=== PATIENT | male | born 1970 | race Caucasian/White ===

== ENCOUNTER 2016-07-28 12:48 | Emergency (ER) | payer MEDICAID ==
[~2016-07-28] VITALS: Ht 182.9 cm; Wt 89.0 kg
[2016-07-28] MEDS ORDERED: RISP2 PO (13:12)
[2016-07-28] MEDS ORDERED: VIST50 PO (13:12)
[2016-07-28 13:33] LABS: BASOPHILS # (AUTO) 0.01 K/uL (0.00-0.20); BASOPHILS % (AUTO) 0.1 % (0.0-2.0); EOSINOPHILS # (AUTO) 0.11 K/uL (0.00-0.70); EOSINOPHILS % (AUTO) 1.32 % (1.0-6.0); HEMOGLOBIN 14.2 g/dL (13.5-17.5); LYMPHOCYTES # (AUTO) 2.2 K/uL (1.0-4.8); LYMPHOCYTES % (AUTO) 26.1 % (22.0-44.0); MEAN CORPUSCULAR HEMOGLOBIN 28.3 pg (26.0-34.0); MEAN CORPUSCULAR VOLUME 86 fL (80-100); MONOCYTES # (AUTO) 0.4 K/uL (0.1-1.0); MONOCYTES % (AUTO) 4.8 % (2.0-9.0); NEUTROPHILS # (AUTO) 5.6 K/uL (1.8-7.7); NEUTROPHILS % (AUTO) 67.7 % (40.0-70.0); PLATELET COUNT (AUTO) 588 K/uL (150-450); RED BLOOD CELL COUNT(AUTO) 5.02 MIL/uL (4.50-5.90); RED CELL DISTRIBUTION WIDTH 14.3 % (11.5-14.5); WHITE BLOOD COUNT (AUTO) 8.3 K/uL (4.5-11.0)
[2016-07-28 13:44] LABS: ANION GAP 10 mmol/L (8-16); CALCIUM, TOTAL 8.8 mg/dL (8.8-10.5); CARBON DIOXIDE 27 mmol/L (22-29); CHLORIDE 96 mmol/L (98-107); CREATININE 0.92 mg/dL (0.60-1.30); GLOMERULAR FILTR. RATE CALC > 60 mL/min (>60); POTASSIUM 4.1 mmol/L (3.5-5.1); SODIUM SERUM 133 mmol/L (136-145); UREA NITROGEN, BLOOD 19 mg/dL (7-18)
[2016-07-28 13:50] LABS: ALANINE AMINOTRANSFERASE 83 U/L (12-78); ALBUMIN 3.8 g/dL (3.4-5.0); ASPARTATE AMINOTRANSFERASE 33 U/L (15-37); BILIRUBIN,TOTAL 0.3 mg/dL (0.1-1.0); TOTAL PROTEIN, SERUM 8.2 g/dL (6.4-8.2)
[2016-07-28] MEDS ORDERED: SODIUM CHLORIDE 0.9% 1,000 ML IV ONE (14:30)
[2016-07-28] MEDS ORDERED: INSULIN REGULAR, HUMAN 100 UNITS/ML IVP ONE ×2 (14:30→14:45)
[2016-07-28 14:47] LABS: GLUCOSE,POINT OF CARE 219 MG/DL (70-110)
[2016-07-28 15:47] LABS: GLUCOSE,POINT OF CARE 85 MG/DL (70-110)
[2016-07-28 16:38] VITALS: BP 146/98
== END 2016-07-28 16:43 | disposition home or self-care (01) ==
LOC: EMS 12:49
DX: E11.65 Type 2 diabetes mellitus with hyperglycemia (principal)
CPT/HCPCS: 36415; 80053; 82948; 82962; 84484; 85025; 96361; 96374; 99285; J1815; J7030

== ENCOUNTER 2017-01-26 19:36 | Inpatient (IN) | payer MEDICAID ==
[~2017-01-26] VITALS: Ht 180.3 cm; Wt 83.0 kg
[~2017-01-26 19:36] MED LIST: RISP2 PO; VIST50 PO
[2017-01-26] MEDS ORDERED: METF500T4 PO (20:00)
[2017-01-26 20:08] LABS: GLUCOSE,POINT OF CARE 201 MG/DL (70-110)
[2017-01-26 20:34] LABS: ANION GAP 5 mmol/L (8-16); CALCIUM, TOTAL 8.6 mg/dL (8.8-10.5); CARBON DIOXIDE 29 mmol/L (22-29); CHLORIDE 102 mmol/L (98-107); CREATININE 1.03 mg/dL (0.60-1.30); GLOMERULAR FILTR. RATE CALC > 60 mL/min (>60); POTASSIUM 4.5 mmol/L (3.5-5.1); SODIUM SERUM 136 mmol/L (136-145); UREA NITROGEN, BLOOD 18 mg/dL (7-18)
[2017-01-26 20:35] LABS: BASOPHILS % (AUTO) 0.8 % (0.0-2.0); EOSINOPHILS % (AUTO) 1.7 % (1.0-6.0); HEMATOCRIT 49.1 % (41-53); LYMPHOCYTES # (AUTO) 3.3 K/uL (1.0-4.8); LYMPHOCYTES % (AUTO) 36.4 % (22.0-44.0); MEAN CORPUSCULAR HEMOGLOBIN 28.4 pg (26.0-34.0); MEAN CORPUSCULAR HGB CONC 32.6 G/dL (31.0-37.0); MEAN CORPUSCULAR VOLUME 87 fL (80-100); MONOCYTES # (AUTO) 0.6 K/uL (0.1-1.0); MONOCYTES % (AUTO) 6.5 % (2.0-9.0); NEUTROPHILS # (AUTO) 4.9 K/uL (1.8-7.7); NEUTROPHILS % (AUTO) 54.6 % (40.0-70.0); PLATELET COUNT (AUTO) 637 K/uL (150-450); RED BLOOD CELL COUNT(AUTO) 5.63 MIL/uL (4.50-5.90); RED CELL DISTRIBUTION WIDTH 14.8 % (11.5-14.5)
[2017-01-26 20:41] LABS: ALANINE AMINOTRANSFERASE 37 U/L (12-78); ALBUMIN 3.7 g/dL (3.4-5.0); ASPARTATE AMINOTRANSFERASE 27 U/L (15-37); BILIRUBIN,TOTAL 0.4 mg/dL (0.1-1.0); TOTAL PROTEIN, SERUM 7.5 g/dL (6.4-8.2)
[2017-01-26 21:06] LABS: ACETAMINOPHEN < 2 mcg/mL (10-30)
[2017-01-26 21:14] LABS: SALICYLATE < 2.8 mg/dL (2.8-20.0)
[2017-01-26 22:53] LABS: ANION GAP 11 mmol/L (8-16); CALCIUM, TOTAL 8.4 mg/dL (8.8-10.5); CARBON DIOXIDE 26 mmol/L (22-29); CHLORIDE 102 mmol/L (98-107); CREATININE 0.89 mg/dL (0.60-1.30); GLOMERULAR FILTR. RATE CALC > 60 mL/min (>60); POTASSIUM 4.1 mmol/L (3.5-5.1); SODIUM SERUM 139 mmol/L (136-145); UREA NITROGEN, BLOOD 17 mg/dL (7-18)
[2017-01-26 23:00] LABS: SALICYLATE < 2.8 mg/dL (2.8-20.0)
[2017-01-26 23:04] LABS: ACETAMINOPHEN < 2 mcg/mL (10-30)
[2017-01-27] MEDS ORDERED: HALOPERIDOL 5 MG TABLET PO PRN (00:15)
[2017-01-27] MEDS ORDERED: ZOLPIDEM TARTRATE 10 MG TABLET PO PRN (00:15)
[2017-01-27 01:03] VITALS: BP 125/86
[2017-01-27 01:24] LABS: APPEARANCE,URINE CLEAR (CLEAR); GLUCOSE, URINE (UA) >=1000 mg/dL (NEGATIVE); KETONES,URINE NEGATIVE (NEGATIVE); LEUKOCYTE ESTERASE ,URINE NEGATIVE (NEGATIVE); OCCULT BLOOD,URINE NEGATIVE (NEGATIVE); PH,URINE 5.5 (5.0-8.0); PROTEIN,URINE NEGATIVE (NEGATIVE)
[2017-01-27 01:29] LABS: ADD UA MICROSCOPIC YES
[2017-01-27 01:35] LABS: CHOL/HDL RATIO 2.5 (4.2-7.3); THYROID STIMULATING HORMONE 1.35 uIU/mL (0.36-3.74)
[2017-01-27 02:13] LABS: RBC,URINE 0-2 /HPF (0-2); WBC,URINE 0-2 /HPF (0-5)
[2017-01-27] MEDS ORDERED: INFLUENZA VIRUS VACCINE QVS 2017-18 (3YR+)/PF 60 MCG/0.5 ML SYRINGE IM ONE (02:30)
[2017-01-27 05:12] LABS: GLUCOSE,POINT OF CARE 237 MG/DL (70-110)
[2017-01-27 09:52] VITALS: BP 120/84
[2017-01-27] MEDS ORDERED: DEXTROSE 50%-WATER 25 GM/50 ML SYRINGE IVP PRN (10:30)
[2017-01-27 11:27] LABS: GLUCOSE,POINT OF CARE 200 MG/DL (70-110)
[2017-01-27] MEDS: INSULIN ASPART 100 UNITS/ML SQ PRN ×3 (11:51→20:58)
[2017-01-27] MEDS: BuPROPion HCL XL 150 MG ER TABLET PO SCH (11:56)
[2017-01-27 17:10] VITALS: BP 113/67
[2017-01-27 17:22] LABS: GLUCOSE,POINT OF CARE 222 MG/DL (70-110)
[2017-01-27] MEDS: MetFORMIN HCL 500 MG TABLET PO SCH (17:41)
[2017-01-27] MEDS ORDERED: BACITRACIN 28.4 GM OINTMENT TP PRN (19:00)
[2017-01-27] MEDS ORDERED: BENZOCAINE/MENTHOL LOZENGE [8 LOZENGES/PACKET] MM PRN (19:00)
[2017-01-27] MEDS ORDERED: CloNIDine HCL 0.1 MG TABLET PO PRN (19:00)
[2017-01-27] MEDS ORDERED: PETROLATUM,WHITE 71 GM JELLY TP PRN (19:00)
[2017-01-27] MEDS ORDERED: ACETAMINOPHEN 325 MG TABLET PO PRN (19:00)
[2017-01-27] MEDS ORDERED: IBUPROFEN 600 MG TABLET PO PRN (19:00)
[2017-01-27] MEDS ORDERED: ALBUTEROL SULFATE HFA 90 MCG/PUFF 8 GM INHALER IH PRN (19:00)
[2017-01-27] MEDS ORDERED: ONDANSETRON HCL 4 MG TABLET PO PRN (19:00)
[2017-01-27] MEDS ORDERED: LOPERAMIDE HCL 2 MG CAPSULE PO PRN (19:00)
[2017-01-27 19:48] VITALS: BP 125/73
[2017-01-27] MEDS: RisperiDONE 2 MG TABLET PO SCH (20:56)
[2017-01-28 06:27] VITALS: BP 120/70
[2017-01-28] MEDS: MetFORMIN HCL 500 MG TABLET PO SCH ×2 (07:03→16:51)
[2017-01-28] MEDS: INSULIN ASPART 100 UNITS/ML SQ PRN ×4 (07:04→21:44)
[2017-01-28 07:54] LABS: GLUCOSE COMMENT 1 Received Meds; GLUCOSE,POINT OF CARE 209 MG/DL (70-110)
[2017-01-28 07:54] LABS: GLUCOSE,POINT OF CARE 271 MG/DL (70-110)
[2017-01-28] MEDS: BuPROPion HCL XL 150 MG ER TABLET PO SCH (09:12)
[2017-01-28] MEDS: MAG HYDROX/AL HYDROX/SIMETH ES 30 ML SUSPENSION UDCUP PO PRN ×2 (09:13→17:30)
[2017-01-28 09:26] VITALS: BP 129/87
[2017-01-28 12:00] LABS: GLUCOSE,POINT OF CARE 147 MG/DL (70-110)
[2017-01-28 16:17] VITALS: BP 108/69
[2017-01-28] MEDS: RisperiDONE 2 MG TABLET PO SCH (21:38)
[2017-01-29 04:54] LABS: GLUCOSE COMMENT 1 FASTING; GLUCOSE COMMENT 2 Received Meds; GLUCOSE,POINT OF CARE 178 MG/DL (70-110)
[2017-01-29 05:00] LABS: GLUCOSE COMMENT 1 FASTING; GLUCOSE,POINT OF CARE 241 MG/DL (70-110)
[2017-01-29 05:44] VITALS: BP 117/72
[2017-01-29] MEDS: MetFORMIN HCL 500 MG TABLET PO SCH ×2 (06:46→16:52)
[2017-01-29] MEDS: INSULIN ASPART 100 UNITS/ML SQ PRN ×4 (06:50→22:19)
[2017-01-29 08:00] VITALS: BP 105/62
[2017-01-29] MEDS: BuPROPion HCL XL 150 MG ER TABLET PO SCH (10:38)
[2017-01-29] MEDS: LORazepam 2 MG TABLET PO PRN ×2 (10:38→16:52)
[2017-01-29 11:14] LABS: GLUCOSE,POINT OF CARE 247 MG/DL (70-110)
[2017-01-29] MEDS: NICOTINE 14 MG/24 HOUR PATCH TD SCH (11:45)
[2017-01-29 12:33] LABS: GLUCOSE,POINT OF CARE 211 MG/DL (70-110)
[2017-01-29] MEDS: MAGNESIUM HYDROXIDE SUSPENSION 30 ML UDCUP PO PRN (13:20)
[2017-01-29 16:39] VITALS: BP 127/86
[2017-01-29] MEDS: MAG HYDROX/AL HYDROX/SIMETH ES 30 ML SUSPENSION UDCUP PO PRN (16:52)
[2017-01-29 17:07] LABS: GLUCOSE COMMENT 1 FASTING; GLUCOSE COMMENT 2 Received Meds; GLUCOSE,POINT OF CARE 370 MG/DL (70-110)
[2017-01-29] MEDS: RisperiDONE 2 MG TABLET PO SCH (21:57)
[2017-01-29 22:17] LABS: GLUCOSE COMMENT 1 FASTING; GLUCOSE,POINT OF CARE 243 MG/DL (70-110)
[2017-01-30 06:09] LABS: GLUCOSE,POINT OF CARE 244 MG/DL (70-110)
[2017-01-30 06:44] VITALS: BP 122/84
[2017-01-30] MEDS: MetFORMIN HCL 500 MG TABLET PO SCH ×2 (07:07→17:39)
[2017-01-30] MEDS: INSULIN ASPART 100 UNITS/ML SQ PRN ×3 (07:10→17:57)
[2017-01-30 08:00] VITALS: BP 139/82
[2017-01-30] MEDS: BuPROPion HCL XL 150 MG ER TABLET PO SCH (08:55)
[2017-01-30] MEDS: LORazepam 2 MG TABLET PO PRN (08:56)
[2017-01-30] MEDS: NICOTINE 14 MG/24 HOUR PATCH TD SCH (08:58)
[2017-01-30] MEDS: MAGNESIUM HYDROXIDE SUSPENSION 30 ML UDCUP PO PRN ×2 (09:00→14:31)
[2017-01-30 10:52] LABS: GLUCOSE,POINT OF CARE 278 MG/DL (70-110)
[2017-01-30] MEDS ORDERED: PALIPERIDONE PALMITATE 156 MG/ML SYRINGE IM SCH ×2 (11:30→12:00)
[2017-01-30 17:42] LABS: GLUCOSE,POINT OF CARE 336 MG/DL (70-110)
[2017-01-30] MEDS: RisperiDONE 2 MG TABLET PO SCH (20:50)
[2017-01-30 20:57] LABS: GLUCOSE,POINT OF CARE 206 MG/DL (70-110)
[2017-01-30 21:18] VITALS: BP 132/86
[2017-01-31 05:48] LABS: GLUCOSE COMMENT 1 FASTING; GLUCOSE COMMENT 2 Received Meds; GLUCOSE,POINT OF CARE 219 MG/DL (70-110)
[2017-01-31 06:02] VITALS: BP 134/88
[2017-01-31] MEDS: MetFORMIN HCL 500 MG TABLET PO SCH ×2 (06:48→17:01)
[2017-01-31] MEDS: INSULIN ASPART 100 UNITS/ML SQ PRN ×3 (06:59→17:24)
[2017-01-31 08:00] VITALS: BP 161/87
[2017-01-31] MEDS: NICOTINE 14 MG/24 HOUR PATCH TD SCH (09:33)
[2017-01-31] MEDS: BuPROPion HCL XL 150 MG ER TABLET PO SCH (09:33)
[2017-01-31] MEDS: MAGNESIUM HYDROXIDE SUSPENSION 30 ML UDCUP PO PRN (09:38)
[2017-01-31 10:38] VITALS: BP 111/72
[2017-01-31 11:37] LABS: GLUCOSE,POINT OF CARE 308 MG/DL (70-110)
[2017-01-31] MEDS: MAGNESIUM CITRATE 300 ML ORAL SOLUTION PO PRN (13:19)
[2017-01-31 16:00] VITALS: BP 111/57
[2017-01-31 16:07] LABS: GLUCOSE,POINT OF CARE 236 MG/DL (70-110)
[2017-01-31 21:32] LABS: GLUCOSE,POINT OF CARE 253 MG/DL (70-110)
[2017-01-31] MEDS: RisperiDONE 2 MG TABLET PO SCH (21:39)
[2017-02-01 04:22] VITALS: BP 132/90
[2017-02-01 05:37] LABS: GLUCOSE COMMENT 1 Received Meds; GLUCOSE,POINT OF CARE 224 MG/DL (70-110)
[2017-02-01] MEDS: MetFORMIN HCL 500 MG TABLET PO SCH ×2 (06:50→16:09)
[2017-02-01] MEDS: INSULIN ASPART 100 UNITS/ML SQ PRN ×4 (07:04→20:51)
[2017-02-01 09:00] VITALS: BP 118/75
[2017-02-01] MEDS: BuPROPion HCL XL 150 MG ER TABLET PO SCH (09:03)
[2017-02-01] MEDS: NICOTINE 14 MG/24 HOUR PATCH TD SCH (09:04)
[2017-02-01] MEDS: MAGNESIUM CITRATE 300 ML ORAL SOLUTION PO PRN (09:08)
[2017-02-01 11:48] LABS: GLUCOSE,POINT OF CARE 249 MG/DL (70-110)
[2017-02-01 16:37] LABS: GLUCOSE,POINT OF CARE 318 MG/DL (70-110)
[2017-02-01 16:53] VITALS: BP 105/70
[2017-02-01 18:21] VITALS: BP 118/96
[2017-02-01] MEDS: LORazepam 2 MG TABLET PO PRN (18:24)
[2017-02-01 20:17] LABS: GLUCOSE,POINT OF CARE 321 MG/DL (70-110)
[2017-02-01] MEDS: RisperiDONE 2 MG TABLET PO SCH (20:40)
[2017-02-02 05:47] LABS: GLUCOSE,POINT OF CARE 182 MG/DL (70-110)
[2017-02-02 05:49] VITALS: BP 101/64
[2017-02-02 06:39] LABS: BASOPHILS % (AUTO) 0.7 % (0.0-2.0); EOSINOPHILS % (AUTO) 0.8 % (1.0-6.0); HEMATOCRIT 48.5 % (41-53); HEMOGLOBIN 16.2 g/dL (13.5-17.5); LYMPHOCYTES # (AUTO) 2.1 K/uL (1.0-4.8); LYMPHOCYTES % (AUTO) 32.3 % (22.0-44.0); MEAN CORPUSCULAR HEMOGLOBIN 29.1 pg (26.0-34.0); MEAN CORPUSCULAR HGB CONC 33.5 G/dL (31.0-37.0); MEAN CORPUSCULAR VOLUME 87 fL (80-100); MONOCYTES # (AUTO) 0.5 K/uL (0.1-1.0); MONOCYTES % (AUTO) 7.7 % (2.0-9.0); NEUTROPHILS # (AUTO) 3.8 K/uL (1.8-7.7); NEUTROPHILS % (AUTO) 58.5 % (40.0-70.0); PLATELET COUNT (AUTO) 498 K/uL (150-450); RED BLOOD CELL COUNT(AUTO) 5.59 MIL/uL (4.50-5.90); RED CELL DISTRIBUTION WIDTH 14.6 % (11.5-14.5); WHITE BLOOD COUNT (AUTO) 6.4 K/uL (4.5-11.0)
[2017-02-02] MEDS: MetFORMIN HCL 500 MG TABLET PO SCH ×2 (06:54→17:23)
[2017-02-02] MEDS: INSULIN ASPART 100 UNITS/ML SQ PRN ×4 (07:07→22:54)
[2017-02-02 08:00] VITALS: BP 137/87
[2017-02-02] MEDS: NICOTINE 14 MG/24 HOUR PATCH TD SCH (09:53)
[2017-02-02] MEDS: BuPROPion HCL XL 150 MG ER TABLET PO SCH (09:53)
[2017-02-02 11:17] LABS: GLUCOSE,POINT OF CARE 265 MG/DL (70-110)
[2017-02-02] MEDS: MAG HYDROX/AL HYDROX/SIMETH ES 30 ML SUSPENSION UDCUP PO PRN (13:34)
[2017-02-02 17:27] LABS: GLUCOSE COMMENT 1 FASTING; GLUCOSE COMMENT 2 Received Meds; GLUCOSE,POINT OF CARE 298 MG/DL (70-110)
[2017-02-02] MEDS: RisperiDONE 2 MG TABLET PO SCH (20:24)
[2017-02-02] MEDS: OMEPRAZOLE 20 MG CAPSULE PO SCH (20:24)
[2017-02-02 22:18] VITALS: BP 115/78
[2017-02-02 23:02] LABS: GLUCOSE COMMENT 1 FASTING; GLUCOSE,POINT OF CARE 169 MG/DL (70-110)
[2017-02-03 05:25] VITALS: BP 131/69
[2017-02-03 05:37] LABS: GLUCOSE COMMENT 1 Received Meds; GLUCOSE,POINT OF CARE 229 MG/DL (70-110)
[2017-02-03] MEDS: MetFORMIN HCL 500 MG TABLET PO SCH (06:56)
[2017-02-03] MEDS: INSULIN ASPART 100 UNITS/ML SQ PRN ×2 (07:00→11:38)
[2017-02-03 08:00] VITALS: BP 140/90
[2017-02-03] MEDS: BuPROPion HCL XL 150 MG ER TABLET PO SCH (10:36)
[2017-02-03] MEDS: OMEPRAZOLE 20 MG CAPSULE PO SCH (10:36)
[2017-02-03] MEDS: NICOTINE 14 MG/24 HOUR PATCH TD SCH (10:38)
[2017-02-03] MEDS ORDERED: OMEP20 PO (10:54)
[2017-02-03] MEDS ORDERED: BUPR-93 PO (10:54)
[2017-02-03 11:27] LABS: GLUCOSE,POINT OF CARE 226 MG/DL (70-110)
[2017-02-04 10:23] LABS: HIV-1 RNA PCR <20 copies/mL
== END 2017-02-03 13:30 | disposition home or self-care (01) | DRG 750 ==
LOC: EMS 19:41 → AHU 01-27 00:57 → 3EI 01-27 19:24
DX: F25.1 Schizoaffective disorder, depressive type (principal); E11.65 Type 2 diabetes mellitus with hyperglycemia; R45.851 Suicidal ideations; D69.6 Thrombocytopenia, unspecified; F32.9 Major depressive disorder, single episode, unspecified; E83.51 Hypocalcemia; F15.10 Other stimulant abuse, uncomplicated; G47.00 Insomnia, unspecified; K59.00 Constipation, unspecified; T39.012A Poisoning by aspirin, intentional self-harm, initial encounter; D47.3 Essential (hemorrhagic) thrombocythemia; Z91.5 Personal history of self-harm; Z79.84 Long term (current) use of oral hypoglycemic drugs
CPT/HCPCS: 82306; 82962; 83036; 84443; 85049; 87536; 90471; 99285; G0480; G0481

== ENCOUNTER 2017-08-07 19:41 | Inpatient (IN) | payer MEDICAID ==
[~2017-08-07] VITALS: Ht 180.3 cm; Wt 84.4 kg
[~2017-08-07 19:41] MED LIST changes: +DSS100 PO; +GLIP10 PO; +INSU100V12 SQ; +LISI-660 PO; +METF500T4 PO; +OMEP20 PO; -VIST50 PO; +VITAD1000 PO
[2017-08-07 19:57] LABS: GLUCOSE,POINT OF CARE 137 MG/DL (70-110)
[2017-08-07] MEDS ORDERED: ACTIVATED CHARCOAL 50 GM/240 ML SUSPENSION PO ONE (20:15)
[2017-08-07 20:44] LABS: BASOPHILS % (AUTO) 1.2 % (0.0-2.0); EOSINOPHILS % (AUTO) 0.9 % (1.0-6.0); HEMATOCRIT 42.3 % (41-53); HEMOGLOBIN 14.3 g/dL (13.5-17.5); LYMPHOCYTES # (AUTO) 2.9 K/uL (1.0-4.8); LYMPHOCYTES % (AUTO) 38.5 % (22.0-44.0); MEAN CORPUSCULAR HEMOGLOBIN 29.7 pg (26.0-34.0); MEAN CORPUSCULAR HGB CONC 33.8 G/dL (31.0-37.0); MEAN CORPUSCULAR VOLUME 88 fL (80-100); MONOCYTES # (AUTO) 0.5 K/uL (0.1-1.0); MONOCYTES % (AUTO) 6.5 % (2.0-9.0); NEUTROPHILS % (AUTO) 52.9 % (40.0-70.0); PLATELET COUNT (AUTO) 711 K/uL (150-450); RED BLOOD CELL COUNT(AUTO) 4.81 MIL/uL (4.50-5.90); RED CELL DISTRIBUTION WIDTH 14.1 % (11.5-14.5)
[2017-08-07 21:05] LABS: SALICYLATE < 2.8 mg/dL (2.8-20.0)
[2017-08-07 21:22] LABS: ANION GAP 12 mmol/L (8-16); CALCIUM, TOTAL 9.1 mg/dL (8.8-10.5); CARBON DIOXIDE 25 mmol/L (22-29); CHLORIDE 102 mmol/L (98-107); CREATININE 0.84 mg/dL (0.60-1.30); GLOMERULAR FILTR. RATE CALC > 60 mL/min (>60); GLUCOSE,RANDOM 140 mg/dL (70-110); POTASSIUM 3.4 mmol/L (3.5-5.1); SODIUM SERUM 139 mmol/L (136-145); UREA NITROGEN, BLOOD 11 mg/dL (7-18)
[2017-08-07 21:27] LABS: ALANINE AMINOTRANSFERASE 43 U/L (12-78); ALBUMIN 3.7 g/dL (3.4-5.0); ALKALINE PHOSPHATASE 191 U/L (46-116); ASPARTATE AMINOTRANSFERASE 49 U/L (15-37); BILIRUBIN,TOTAL 0.3 mg/dL (0.1-1.0); TOTAL PROTEIN, SERUM 8.1 g/dL (6.4-8.2)
[2017-08-07 21:39] LABS: ACETAMINOPHEN < 2 mcg/mL (10-30)
[2017-08-07] MEDS ORDERED: LORazepam 2 MG TABLET PO PRN (22:15)
[2017-08-07] MEDS ORDERED: ZOLPIDEM TARTRATE 10 MG TABLET PO PRN (22:15)
[2017-08-07] MEDS ORDERED: HALOPERIDOL 5 MG TABLET PO PRN (22:15)
[2017-08-07 23:37] LABS: APPEARANCE,URINE CLEAR (CLEAR); BILIRUBIN,URINE NEGATIVE (NEGATIVE); GLUCOSE, URINE (UA) >=1000 mg/dL (NEGATIVE); KETONES,URINE NEGATIVE (NEGATIVE); LEUKOCYTE ESTERASE ,URINE NEGATIVE (NEGATIVE); NITRATE,URINE NEGATIVE (NEGATIVE); OCCULT BLOOD,URINE NEGATIVE (NEGATIVE); PH,URINE 5.5 (5.0-8.0); PROTEIN,URINE NEGATIVE (NEGATIVE)
[2017-08-07 23:42] LABS: AMPHET/METH SCREEN,URINE POSITIVE (NEGATIVE); BARBITURATE SCREEN, URINE NEGATIVE (NEGATIVE); BENZODIAZEPINES SCREEN,URINE NEGATIVE (NEGATIVE); CANNABINOID SCREEN,URINE NEGATIVE (NEGATIVE); COCAINE SCREEN,URINE NEGATIVE (NEGATIVE); METHADONE SCREEN, URINE NEGATIVE (NEGATIVE); OPIATE SCREEN,URINE NEGATIVE (NEGATIVE)
[2017-08-07 23:44] LABS: PHENCYCLIDINE SCREEN,URINE NEGATIVE (NEGATIVE)
[2017-08-07 23:51] LABS: BACTERIA,URINE None Seen /HPF (None Seen); RBC,URINE None Seen /HPF (0-2); WBC,URINE None Seen /HPF (0-5)
[2017-08-08 03:36] VITALS: BP 114/73
[2017-08-08] MEDS ORDERED: PNEUMOCOCCAL VACCINE POLYVALENT 0.5 ML VIAL [PPSV23] IM ONE (05:30)
[2017-08-08 09:01] VITALS: BP 138/90
[2017-08-08] MEDS ORDERED: ALBUTEROL SULFATE HFA 90 MCG/PUFF 8 GM INHALER IH PRN (09:15)
[2017-08-08] MEDS ORDERED: CloNIDine HCL 0.1 MG TABLET PO PRN (09:15)
[2017-08-08] MEDS ORDERED: ONDANSETRON HCL 4 MG TABLET PO PRN (09:15)
[2017-08-08] MEDS ORDERED: PETROLATUM,WHITE 71 GM JELLY TP PRN (09:15)
[2017-08-08] MEDS ORDERED: IBUPROFEN 600 MG TABLET PO PRN (09:15)
[2017-08-08] MEDS ORDERED: POTASSIUM CHLORIDE 20 MEQ ER TABLET PO ONE (09:15)
[2017-08-08] MEDS ORDERED: BACITRACIN 28.4 GM OINTMENT TP PRN (09:15)
[2017-08-08] MEDS ORDERED: MAG HYDROX/AL HYDROX/SIMETH ES 30 ML SUSPENSION UDCUP PO PRN (09:15)
[2017-08-08] MEDS ORDERED: ACETAMINOPHEN 325 MG TABLET PO PRN (09:15)
[2017-08-08] MEDS ORDERED: MAGNESIUM HYDROXIDE SUSPENSION 30 ML UDCUP PO PRN (09:15)
[2017-08-08] MEDS ORDERED: DEXTROSE 50%-WATER 25 GM/50 ML SYRINGE IVP PRN (09:15)
[2017-08-08] MEDS ORDERED: LOPERAMIDE HCL 2 MG CAPSULE PO PRN (09:15)
[2017-08-08] MEDS ORDERED: BENZOCAINE/MENTHOL LOZENGE MM PRN (09:15)
[2017-08-08] MEDS: ARIPiprazole 15 MG TABLET PO SCH (09:56)
[2017-08-08] MEDS: LISINOPRIL 5 MG TABLET PO SCH (09:57)
[2017-08-08 11:38] LABS: GLUCOMETER DEV NAME(LOC) 3EI B; GLUCOSE,POINT OF CARE 233 MG/DL (70-110)
[2017-08-08] MEDS: INSULIN LISPRO 100 UNITS/ML SQ PRN ×3 (11:38→21:32)
[2017-08-08] MEDS: GlipiZIDE 10 MG TABLET PO SCH (16:54)
[2017-08-08] MEDS: MetFORMIN HCL 500 MG TABLET PO SCH (16:54)
[2017-08-08 17:00] VITALS: BP 126/82
[2017-08-08 17:03] LABS: GLUCOMETER DEV NAME(LOC) 3EI B; GLUCOSE,POINT OF CARE 148 MG/DL (70-110)
[2017-08-08 20:38] LABS: GLUCOMETER DEV NAME(LOC) 3EI B; GLUCOSE,POINT OF CARE 67 MG/DL (70-110)
[2017-08-08] MEDS ORDERED: INSULIN GLARGINE,HUM.REC.ANLOG 100 UNITS/ML SQ SCH (21:00)
[2017-08-08] MEDS ORDERED: RisperiDONE 2 MG TABLET PO SCH (21:00)
[2017-08-08 21:33] LABS: GLUCOMETER DEV NAME(LOC) 3EI B; GLUCOSE,POINT OF CARE 151 MG/DL (70-110)
[2017-08-09 05:23] LABS: GLUCOMETER DEV NAME(LOC) 3EI B; GLUCOSE,POINT OF CARE 158 MG/DL (70-110)
[2017-08-09] MEDS: GlipiZIDE 10 MG TABLET PO SCH (06:37)
[2017-08-09] MEDS: MetFORMIN HCL 500 MG TABLET PO SCH (06:37)
[2017-08-09] MEDS: INSULIN LISPRO 100 UNITS/ML SQ PRN ×2 (06:42→11:35)
[2017-08-09 08:00] VITALS: BP 123/74
[2017-08-09] MEDS ORDERED: CHOLECALCIFEROL (VIT D3) 1,000 UNITS TABLET PO SCH (09:00)
[2017-08-09] MEDS ORDERED: OMEPRAZOLE 20 MG CAPSULE PO SCH (09:00)
[2017-08-09] MEDS ORDERED: DOCUSATE SODIUM 100 MG CAPSULE PO SCH (09:00)
[2017-08-09] MEDS: LISINOPRIL 5 MG TABLET PO SCH (09:43)
[2017-08-09] MEDS: ARIPiprazole 15 MG TABLET PO SCH (09:43)
[2017-08-09 11:22] LABS: GLUCOMETER DEV NAME(LOC) 3EI B; GLUCOSE,POINT OF CARE 180 MG/DL (70-110)
[2017-08-09] MEDS ORDERED: ARIP15TA2 PO (15:44)
[2017-08-09] MEDS ORDERED: INSLAN SQ (15:45)
== END 2017-08-09 16:15 | disposition home or self-care (01) | DRG 754 ==
LOC: EMS 19:42 → 3EI 22:30
PROVIDERS: ADMIT Psychiatry & Neurology Psychiatry; ATTEND Psychiatry & Neurology Psychiatry
DX: F32.9 Major depressive disorder, single episode, unspecified (principal); E11.65 Type 2 diabetes mellitus with hyperglycemia; I10 Essential (primary) hypertension; F25.9 Schizoaffective disorder, unspecified; E55.9 Vitamin D deficiency, unspecified; F15.10 Other stimulant abuse, uncomplicated; F17.200 Nicotine dependence, unspecified, uncomplicated; F41.9 Anxiety disorder, unspecified; F41.8 Other specified anxiety disorders; Y90.3 Blood alcohol level of 60-79 mg/100 ml; T39.012A Poisoning by aspirin, intentional self-harm, initial encounter; F10.10 Alcohol abuse, uncomplicated; E87.6 Hypokalemia; G47.00 Insomnia, unspecified; J44.9 Chronic obstructive pulmonary disease, unspecified; Z59.0 Homelessness; Z91.5 Personal history of self-harm; Y92.89 Other specified places as the place of occurrence of the external cause
CPT/HCPCS: 82962; 84132; 93005; G0480; G0481; J1815

== ENCOUNTER 2018-04-22 17:56 | Inpatient (IN) | payer MEDICAID ==
[~2018-04-22] VITALS: Ht 180.3 cm; Wt 92.5 kg
[~2018-04-22 17:56] MED LIST changes: -DSS100 PO; +INSLAN SQ; -INSU100V12 SQ; +METF-960 PO; -METF500T4 PO
[2018-04-22 18:15] LABS: GLUCOSE,POINT OF CARE 313 MG/DL (70-110)
[2018-04-22 19:01] LABS: BASOPHILS % (AUTO) 1.2 % (0.0-2.0); EOSINOPHILS % (AUTO) 0.7 % (1.0-6.0); HEMATOCRIT 47.8 % (41-53); HEMOGLOBIN 16.1 g/dL (13.5-17.5); LYMPHOCYTES # (AUTO) 2.9 K/uL (1.0-4.8); LYMPHOCYTES % (AUTO) 30.3 % (22.0-44.0); MEAN CORPUSCULAR HEMOGLOBIN 29.2 pg (26.0-34.0); MEAN CORPUSCULAR HGB CONC 33.6 G/dL (31.0-37.0); MEAN CORPUSCULAR VOLUME 87 fL (80-100); MONOCYTES # (AUTO) 0.5 K/uL (0.1-1.0); MONOCYTES % (AUTO) 5.4 % (2.0-9.0); NEUTROPHILS # (AUTO) 5.9 K/uL (1.8-7.7); NEUTROPHILS % (AUTO) 62.4 % (40.0-70.0); RED BLOOD CELL COUNT(AUTO) 5.51 MIL/uL (4.50-5.90); RED CELL DISTRIBUTION WIDTH 14.6 % (11.5-14.5)
[2018-04-22 19:13] LABS: PLATELET COUNT (AUTO) 856 K/uL (150-450)
[2018-04-22 19:15] LABS: ANION GAP 15 mmol/L (8-16); CALCIUM, TOTAL 9.2 mg/dL (8.8-10.5); CARBON DIOXIDE 21 mmol/L (22-29); CHLORIDE 100 mmol/L (98-107); CREATININE 0.99 mg/dL (0.60-1.30); GLOMERULAR FILTR. RATE CALC > 60 mL/min (>60); GLUCOSE,RANDOM 304 mg/dL (70-110); POTASSIUM 3.9 mmol/L (3.5-5.1); SODIUM SERUM 136 mmol/L (136-145); UREA NITROGEN, BLOOD 16 mg/dL (7-18)
[2018-04-22 19:21] LABS: ALANINE AMINOTRANSFERASE 42 U/L (12-78); ALBUMIN 3.9 g/dL (3.4-5.0); ALKALINE PHOSPHATASE 158 U/L (46-116); ASPARTATE AMINOTRANSFERASE 42 U/L (15-37); BILIRUBIN,TOTAL 0.2 mg/dL (0.1-1.0); TOTAL PROTEIN, SERUM 8.2 g/dL (6.4-8.2)
[2018-04-22] MEDS ORDERED: LORazepam 2 MG/ML VIAL IM ONE (20:00)
[2018-04-22] MEDS ORDERED: DiphenhydrAMINE HCL 50 MG/ML VIAL IM ONE (20:00)
[2018-04-22] MEDS ORDERED: INSULIN REGULAR, HUMAN 100 UNITS/ML SQ ONE (20:00)
[2018-04-22 20:05] LABS: ACETONE,BLOOD NEGATIVE (NEGATIVE)
[2018-04-22 21:44] LABS: GLUCOSE,POINT OF CARE 272 MG/DL (70-110)
[2018-04-22] MEDS ORDERED: HALOPERIDOL 5 MG TABLET PO PRN (22:30)
[2018-04-23 00:14] VITALS: BP 160/95
[2018-04-23 05:34] LABS: GLUCOMETER DEV NAME(LOC) 3EX.; GLUCOSE,POINT OF CARE 283 MG/DL (70-110)
[2018-04-23] MEDS ORDERED: ACETAMINOPHEN 325 MG TABLET PO PRN (06:00)
[2018-04-23] MEDS ORDERED: ALBUTEROL SULFATE HFA 90 MCG/PUFF 8 GM INHALER IH PRN (06:00)
[2018-04-23] MEDS ORDERED: GuaiFENesin/D-METHORPHAN [SUGAR-FREE] 200-20MG/10 ML SYRUP UDCUP PO PRN (06:00)
[2018-04-23] MEDS ORDERED: PETROLATUM,WHITE 71 GM JELLY TP PRN (06:00)
[2018-04-23] MEDS ORDERED: DOCUSATE SODIUM 100 MG CAPSULE PO PRN (06:00)
[2018-04-23] MEDS ORDERED: LOPERAMIDE HCL 2 MG CAPSULE PO PRN (06:00)
[2018-04-23] MEDS ORDERED: ONDANSETRON HCL 4 MG TABLET PO PRN (06:00)
[2018-04-23] MEDS ORDERED: CloNIDine HCL 0.1 MG TABLET PO PRN (06:00)
[2018-04-23] MEDS ORDERED: MAG HYDROX/AL HYDROX/SIMETH ES 30 ML SUSPENSION UDCUP PO PRN (06:00)
[2018-04-23] MEDS ORDERED: IBUPROFEN 400 MG TABLET PO PRN (06:00)
[2018-04-23] MEDS ORDERED: MAGNESIUM HYDROXIDE SUSPENSION 30 ML UDCUP PO PRN (06:00)
[2018-04-23] MEDS: MetFORMIN HCL 500 MG TABLET PO SCH ×2 (06:55→16:50)
[2018-04-23] MEDS: GlipiZIDE 10 MG TABLET PO SCH ×2 (07:19→16:50)
[2018-04-23 07:24] LABS: CHOL/HDL RATIO 3.4 (4.2-7.3)
[2018-04-23] MEDS: LISINOPRIL 10 MG TABLET PO SCH (09:00)
[2018-04-23] MEDS: OMEPRAZOLE 20 MG CAPSULE PO SCH (09:00)
[2018-04-23] MEDS: CHOLECALCIFEROL (VIT D3) 1,000 UNITS TABLET PO SCH (09:00)
[2018-04-23 12:15] VITALS: BP 113/73
[2018-04-23 12:18] VITALS: BP 113/73
[2018-04-23] MEDS ORDERED: DEXTROSE 50%-WATER 25 GM/50 ML SYRINGE IVP PRN (13:15)
[2018-04-23 16:19] LABS: GLUCOMETER DEV NAME(LOC) 3EX.; GLUCOSE,POINT OF CARE 206 MG/DL (70-110)
[2018-04-23] MEDS: INSULIN LISPRO 100 UNITS/ML SQ PRN ×2 (17:39→21:57)
[2018-04-23 18:17] VITALS: BP 136/90
[2018-04-23] MEDS: INSULIN GLARGINE,HUM.REC.ANLOG 100 UNITS/ML SQ SCH (21:55)
[2018-04-23] MEDS: LORazepam 2 MG TABLET PO PRN (21:56)
[2018-04-23] MEDS: RisperiDONE 2 MG TABLET PO SCH (21:56)
[2018-04-23 22:15] LABS: GLUCOMETER DEV NAME(LOC) 3EX.; GLUCOSE,POINT OF CARE 249 MG/DL (70-110)
[2018-04-24 05:59] LABS: GLUCOMETER DEV NAME(LOC) 3EX.; GLUCOSE,POINT OF CARE 168 MG/DL (70-110)
[2018-04-24] MEDS: GlipiZIDE 10 MG TABLET PO SCH ×2 (06:34→16:46)
[2018-04-24] MEDS: MetFORMIN HCL 500 MG TABLET PO SCH ×2 (06:34→16:46)
[2018-04-24] MEDS: INSULIN LISPRO 100 UNITS/ML SQ PRN ×4 (06:35→21:15)
[2018-04-24 07:00] LABS: EOSINOPHILS % (AUTO) 0.5 % (1.0-6.0); HEMATOCRIT 45.9 % (41-53); HEMOGLOBIN 15.5 g/dL (13.5-17.5); LYMPHOCYTES # (AUTO) 2.2 K/uL (1.0-4.8); MEAN CORPUSCULAR HEMOGLOBIN 29.6 pg (26.0-34.0); MEAN CORPUSCULAR HGB CONC 33.8 G/dL (31.0-37.0); MEAN CORPUSCULAR VOLUME 87 fL (80-100); MONOCYTES # (AUTO) 0.3 K/uL (0.1-1.0); MONOCYTES % (AUTO) 4.6 % (2.0-9.0); NEUTROPHILS # (AUTO) 4.5 K/uL (1.8-7.7); NEUTROPHILS % (AUTO) 62.9 % (40.0-70.0); PLATELET COUNT (AUTO) 654 K/uL (150-450); RED BLOOD CELL COUNT(AUTO) 5.25 MIL/uL (4.50-5.90); RED CELL DISTRIBUTION WIDTH 14.5 % (11.5-14.5)
[2018-04-24] MEDS: OMEPRAZOLE 20 MG CAPSULE PO SCH (08:57)
[2018-04-24] MEDS: RisperiDONE 2 MG TABLET PO SCH ×2 (08:57→21:11)
[2018-04-24] MEDS: CHOLECALCIFEROL (VIT D3) 1,000 UNITS TABLET PO SCH (08:58)
[2018-04-24] MEDS: LISINOPRIL 10 MG TABLET PO SCH (08:58)
[2018-04-24] MEDS: LORazepam 2 MG TABLET PO PRN ×2 (08:59→16:46)
[2018-04-24 10:33] VITALS: BP 119/81
[2018-04-24 11:19] LABS: GLUCOMETER DEV NAME(LOC) 3EX.; GLUCOSE,POINT OF CARE 215 MG/DL (70-110)
[2018-04-24 17:44] VITALS: BP 127/92
[2018-04-24 17:44] LABS: GLUCOMETER DEV NAME(LOC) 3EX.; GLUCOSE,POINT OF CARE 222 MG/DL (70-110)
[2018-04-24 20:49] LABS: GLUCOMETER DEV NAME(LOC) 3EX.; GLUCOSE,POINT OF CARE 204 MG/DL (70-110)
[2018-04-24] MEDS: INSULIN GLARGINE,HUM.REC.ANLOG 100 UNITS/ML SQ SCH (21:14)
[2018-04-25 06:15] LABS: GLUCOMETER DEV NAME(LOC) 3EX.; GLUCOSE,POINT OF CARE 169 MG/DL (70-110)
[2018-04-25] MEDS: GlipiZIDE 10 MG TABLET PO SCH ×2 (06:31→16:10)
[2018-04-25] MEDS: MetFORMIN HCL 500 MG TABLET PO SCH ×2 (06:31→16:10)
[2018-04-25] MEDS: INSULIN LISPRO 100 UNITS/ML SQ PRN ×4 (06:32→21:22)
[2018-04-25 08:57] VITALS: BP 127/76
[2018-04-25] MEDS: OMEPRAZOLE 20 MG CAPSULE PO SCH (09:26)
[2018-04-25] MEDS: CHOLECALCIFEROL (VIT D3) 1,000 UNITS TABLET PO SCH (09:26)
[2018-04-25] MEDS: RisperiDONE 2 MG TABLET PO SCH ×2 (09:26→21:06)
[2018-04-25] MEDS: LISINOPRIL 10 MG TABLET PO SCH (09:26)
[2018-04-25 12:35] LABS: GLUCOMETER DEV NAME(LOC) 3EX.; GLUCOSE,POINT OF CARE 164 MG/DL (70-110)
[2018-04-25] MEDS: LORazepam 2 MG TABLET PO PRN (16:12)
[2018-04-25 19:13] VITALS: BP 130/80
[2018-04-25] MEDS: ZOLPIDEM TARTRATE 10 MG TABLET PO PRN (21:06)
[2018-04-25] MEDS: INSULIN GLARGINE,HUM.REC.ANLOG 100 UNITS/ML SQ SCH (21:21)
[2018-04-26] MEDS: MetFORMIN HCL 500 MG TABLET PO SCH ×2 (06:56→16:26)
[2018-04-26] MEDS: GlipiZIDE 10 MG TABLET PO SCH ×2 (06:56→16:26)
[2018-04-26] MEDS: INSULIN LISPRO 100 UNITS/ML SQ PRN ×3 (07:01→21:17)
[2018-04-26] MEDS: LISINOPRIL 10 MG TABLET PO SCH (08:57)
[2018-04-26] MEDS: RisperiDONE 2 MG TABLET PO SCH ×2 (08:57→20:55)
[2018-04-26] MEDS: CHOLECALCIFEROL (VIT D3) 1,000 UNITS TABLET PO SCH (08:57)
[2018-04-26] MEDS: OMEPRAZOLE 20 MG CAPSULE PO SCH (08:57)
[2018-04-26 09:33] VITALS: BP 128/86
[2018-04-26 13:58] LABS: GLUCOMETER DEV NAME(LOC) 3EX.; GLUCOSE,POINT OF CARE 176 MG/DL (70-110)
[2018-04-26 14:00] LABS: GLUCOMETER DEV NAME(LOC) 3EX.; GLUCOSE,POINT OF CARE 161 MG/DL (70-110)
[2018-04-26 14:00] LABS: GLUCOMETER DEV NAME(LOC) 3EX.; GLUCOSE,POINT OF CARE 205 MG/DL (70-110)
[2018-04-26 14:01] LABS: GLUCOMETER DEV NAME(LOC) 3EX.; GLUCOSE,POINT OF CARE 129 MG/DL (70-110)
[2018-04-26] MEDS: LORazepam 2 MG TABLET PO PRN (14:22)
[2018-04-26 16:35] VITALS: BP 108/68
[2018-04-26] MEDS: INSULIN GLARGINE,HUM.REC.ANLOG 100 UNITS/ML SQ SCH (21:16)
[2018-04-27] MEDS: MetFORMIN HCL 500 MG TABLET PO SCH ×2 (06:54→16:31)
[2018-04-27] MEDS: INSULIN LISPRO 100 UNITS/ML SQ PRN ×3 (06:54→21:20)
[2018-04-27] MEDS: GlipiZIDE 10 MG TABLET PO SCH ×2 (06:54→16:29)
[2018-04-27] MEDS: RisperiDONE 2 MG TABLET PO SCH ×2 (08:40→21:19)
[2018-04-27] MEDS: CHOLECALCIFEROL (VIT D3) 1,000 UNITS TABLET PO SCH (08:40)
[2018-04-27] MEDS: LISINOPRIL 10 MG TABLET PO SCH (08:40)
[2018-04-27] MEDS: OMEPRAZOLE 20 MG CAPSULE PO SCH (08:40)
[2018-04-27 08:51] LABS: GLUCOMETER DEV NAME(LOC) 3EX.; GLUCOSE,POINT OF CARE 268 MG/DL (70-110)
[2018-04-27 08:51] LABS: GLUCOMETER DEV NAME(LOC) 3EX.; GLUCOSE,POINT OF CARE 147 MG/DL (70-110)
[2018-04-27 08:56] LABS: GLUCOMETER DEV NAME(LOC) 3EX.; GLUCOSE,POINT OF CARE 194 MG/DL (70-110)
[2018-04-27 10:47] VITALS: BP 117/75
[2018-04-27 11:18] LABS: GLUCOMETER DEV NAME(LOC) 3EX.; GLUCOSE,POINT OF CARE 135 MG/DL (70-110)
[2018-04-27 16:59] VITALS: BP 131/80
[2018-04-27 17:14] LABS: GLUCOMETER DEV NAME(LOC) 3EX.; GLUCOSE,POINT OF CARE 331 MG/DL (70-110)
[2018-04-27] MEDS: INSULIN GLARGINE,HUM.REC.ANLOG 100 UNITS/ML SQ SCH (21:19)
[2018-04-27 21:49] LABS: GLUCOMETER DEV NAME(LOC) 3EX.; GLUCOSE,POINT OF CARE 245 MG/DL (70-110)
[2018-04-28 01:50] VITALS: BP 138/88
[2018-04-28] MEDS: ZOLPIDEM TARTRATE 10 MG TABLET PO PRN (01:53)
[2018-04-28 06:24] LABS: GLUCOMETER DEV NAME(LOC) 3EX.; GLUCOSE,POINT OF CARE 158 MG/DL (70-110)
[2018-04-28] MEDS: INSULIN LISPRO 100 UNITS/ML SQ PRN ×3 (06:50→20:44)
[2018-04-28] MEDS: GlipiZIDE 10 MG TABLET PO SCH ×2 (06:54→16:37)
[2018-04-28] MEDS: MetFORMIN HCL 500 MG TABLET PO SCH ×2 (06:54→16:37)
[2018-04-28] MEDS: LISINOPRIL 10 MG TABLET PO SCH (08:14)
[2018-04-28] MEDS: OMEPRAZOLE 20 MG CAPSULE PO SCH (08:14)
[2018-04-28] MEDS: CHOLECALCIFEROL (VIT D3) 1,000 UNITS TABLET PO SCH (08:14)
[2018-04-28] MEDS: RisperiDONE 2 MG TABLET PO SCH ×2 (08:14→20:43)
[2018-04-28 09:31] VITALS: BP 126/75
[2018-04-28 11:49] LABS: GLUCOMETER DEV NAME(LOC) 3EX.; GLUCOSE,POINT OF CARE 116 MG/DL (70-110)
[2018-04-28 18:46] VITALS: BP 113/69
[2018-04-28] MEDS: DiphenhydrAMINE HCL 25 MG CAPSULE PO SCH (20:43)
[2018-04-28] MEDS: INSULIN GLARGINE,HUM.REC.ANLOG 100 UNITS/ML SQ SCH (20:44)
[2018-04-29] MEDS: MetFORMIN HCL 500 MG TABLET PO SCH ×2 (06:44→17:38)
[2018-04-29] MEDS: GlipiZIDE 10 MG TABLET PO SCH ×2 (06:44→16:33)
[2018-04-29] MEDS: INSULIN LISPRO 100 UNITS/ML SQ PRN ×2 (06:56→21:35)
[2018-04-29] MEDS: LISINOPRIL 10 MG TABLET PO SCH (08:34)
[2018-04-29] MEDS: RisperiDONE 2 MG TABLET PO SCH ×2 (08:34→21:27)
[2018-04-29] MEDS: CHOLECALCIFEROL (VIT D3) 1,000 UNITS TABLET PO SCH (08:34)
[2018-04-29] MEDS: OMEPRAZOLE 20 MG CAPSULE PO SCH (08:34)
[2018-04-29 10:16] VITALS: BP 125/73
[2018-04-29 10:48] LABS: GLUCOMETER DEV NAME(LOC) 3EX.; GLUCOSE,POINT OF CARE 178 MG/DL (70-110)
[2018-04-29 10:50] LABS: GLUCOMETER DEV NAME(LOC) 3EX.; GLUCOSE,POINT OF CARE 319 MG/DL (70-110)
[2018-04-29 10:51] LABS: GLUCOMETER DEV NAME(LOC) 3EX.; GLUCOSE,POINT OF CARE 184 MG/DL (70-110)
[2018-04-29 16:36] VITALS: BP 136/83
[2018-04-29] MEDS ORDERED: INSULIN LISPRO 100 UNITS/ML SQ ONE (17:15)
[2018-04-29] MEDS ORDERED: LISI-661 PO (17:33)
[2018-04-29 17:40] LABS: GLUCOMETER DEV NAME(LOC) 3EX.; GLUCOSE,POINT OF CARE 456 MG/DL (70-110)
[2018-04-29 17:40] LABS: GLUCOMETER DEV NAME(LOC) 3EX.; GLUCOSE,POINT OF CARE 137 MG/DL (70-110)
[2018-04-29 17:40] LABS: GLUCOMETER DEV NAME(LOC) 3EX.; GLUCOSE,POINT OF CARE 447 MG/DL (70-110)
[2018-04-29 20:24] LABS: GLUCOMETER DEV NAME(LOC) 3EX.; GLUCOSE,POINT OF CARE 85 MG/DL (70-110)
[2018-04-29] MEDS: INSULIN GLARGINE,HUM.REC.ANLOG 100 UNITS/ML SQ SCH (21:00)
[2018-04-29] MEDS: DiphenhydrAMINE HCL 25 MG CAPSULE PO SCH (21:27)
[2018-04-29 21:34] LABS: GLUCOMETER DEV NAME(LOC) 3EX.; GLUCOSE,POINT OF CARE 147 MG/DL (70-110)
[2018-04-30 05:23] LABS: GLUCOMETER DEV NAME(LOC) 3EX.; GLUCOSE,POINT OF CARE 186 MG/DL (70-110)
[2018-04-30] MEDS: GlipiZIDE 10 MG TABLET PO SCH (06:54)
[2018-04-30] MEDS: MetFORMIN HCL 500 MG TABLET PO SCH (06:54)
[2018-04-30] MEDS: INSULIN LISPRO 100 UNITS/ML SQ PRN ×2 (07:00→11:36)
[2018-04-30 08:23] VITALS: BP 131/86
[2018-04-30] MEDS: LISINOPRIL 10 MG TABLET PO SCH (08:57)
[2018-04-30] MEDS: RisperiDONE 2 MG TABLET PO SCH (08:57)
[2018-04-30] MEDS: CHOLECALCIFEROL (VIT D3) 1,000 UNITS TABLET PO SCH (08:57)
[2018-04-30] MEDS: OMEPRAZOLE 20 MG CAPSULE PO SCH (08:57)
[2018-04-30 09:40] VITALS: BP 131/86
[2018-04-30] MEDS ORDERED: DIPH25 PO (10:15)
[2018-04-30] MEDS ORDERED: RISP2 PO (10:15)
[2018-04-30 11:49] LABS: GLUCOMETER DEV NAME(LOC) 3EX.; GLUCOSE,POINT OF CARE 255 MG/DL (70-110)
== END 2018-04-30 14:45 | disposition home or self-care (01) | DRG 750 ==
LOC: EMS 17:58 → 3EI 22:00
DX: F25.1 Schizoaffective disorder, depressive type (principal); E11.65 Type 2 diabetes mellitus with hyperglycemia; K70.30 Alcoholic cirrhosis of liver without ascites; R45.851 Suicidal ideations; F10.129 Alcohol abuse with intoxication, unspecified; F14.90 Cocaine use, unspecified, uncomplicated; F15.10 Other stimulant abuse, uncomplicated; F17.200 Nicotine dependence, unspecified, uncomplicated; G47.00 Insomnia, unspecified; I10 Essential (primary) hypertension; K21.9 Gastro-esophageal reflux disease without esophagitis; Z59.0 Homelessness; Z79.4 Long term (current) use of insulin; Z79.899 Other long term (current) drug therapy; Z91.19 Patient's noncompliance with other medical treatment and regimen; Z91.5 Personal history of self-harm
CPT/HCPCS: 80074; 83036; 93005; 96372; G0480; J1200; J1815; J2060

== ENCOUNTER 2018-05-13 15:55 | Inpatient (IN) | payer MEDICAID ==
[~2018-05-13] VITALS: Ht 180.3 cm; Wt 91.6 kg
[~2018-05-13 15:55] MED LIST changes: +DIPH25 PO; -LISI-660 PO; +LISI-661 PO
[2018-05-13] MEDS ORDERED: RISP4 PO (17:53)
[2018-05-13 20:56] VITALS: BP 126/82
[2018-05-13] MEDS ORDERED: ACETAMINOPHEN 325 MG TABLET PO PRN (21:15)
[2018-05-13] MEDS ORDERED: MAGNESIUM HYDROXIDE SUSPENSION 30 ML UDCUP PO PRN (21:15)
[2018-05-13] MEDS ORDERED: PETROLATUM,WHITE 71 GM JELLY TP PRN (21:15)
[2018-05-13] MEDS ORDERED: CloNIDine HCL 0.1 MG TABLET PO PRN (21:15)
[2018-05-13] MEDS ORDERED: MAG HYDROX/AL HYDROX/SIMETH ES 30 ML SUSPENSION UDCUP PO PRN (21:15)
[2018-05-13] MEDS ORDERED: GuaiFENesin/D-METHORPHAN [SUGAR-FREE] 200-20MG/10 ML SYRUP UDCUP PO PRN (21:15)
[2018-05-13] MEDS ORDERED: ALBUTEROL SULFATE HFA 90 MCG/PUFF 8 GM INHALER IH PRN (21:15)
[2018-05-13] MEDS ORDERED: LOPERAMIDE HCL 2 MG CAPSULE PO PRN (21:15)
[2018-05-13] MEDS ORDERED: NICOTINE 14 MG/24 HOUR PATCH TD PRN (21:15)
[2018-05-13] MEDS ORDERED: ONDANSETRON HCL 4 MG TABLET PO PRN (21:15)
[2018-05-13] MEDS ORDERED: IBUPROFEN 400 MG TABLET PO PRN (21:15)
[2018-05-13] MEDS ORDERED: DOCUSATE SODIUM 100 MG CAPSULE PO PRN (21:15)
[2018-05-13] MEDS ORDERED: GLUCAGON,HUMAN RECOMBINANT 1 MG VIAL IM PRN (21:30)
[2018-05-13] MEDS: INSULIN LISPRO 100 UNITS/ML SQ PRN (21:42)
[2018-05-14 05:13] VITALS: BP 120/75
[2018-05-14 06:30] LABS: GLUCOMETER DEV NAME(LOC) BV3N.; GLUCOSE,POINT OF CARE 135 MG/DL (70-110)
[2018-05-14] MEDS: MetFORMIN HCL 500 MG TABLET PO SCH ×2 (06:40→17:00)
[2018-05-14] MEDS: GlipiZIDE 10 MG TABLET PO SCH ×2 (06:44→16:59)
[2018-05-14 08:00] VITALS: BP 127/72
[2018-05-14] MEDS: LISINOPRIL 10 MG TABLET PO SCH (09:11)
[2018-05-14] MEDS: OMEPRAZOLE 20 MG CAPSULE PO SCH (09:11)
[2018-05-14] MEDS: CHOLECALCIFEROL (VIT D3) 1,000 UNITS TABLET PO SCH (09:11)
[2018-05-14] MEDS: INSULIN LISPRO 100 UNITS/ML SQ PRN ×4 (10:21→21:00)
[2018-05-14 10:24] LABS: GLUCOMETER DEV NAME(LOC) BV3N.; GLUCOSE,POINT OF CARE 231 MG/DL (70-110)
[2018-05-14] MEDS: RisperiDONE 4 MG TABLET PO SCH (11:38)
[2018-05-14 16:05] VITALS: BP 108/72
[2018-05-14 16:55] LABS: GLUCOMETER DEV NAME(LOC) BV3N.; GLUCOSE,POINT OF CARE 159 MG/DL (70-110)
[2018-05-14] MEDS: HALOPERIDOL 5 MG TABLET PO PRN (17:00)
[2018-05-14] MEDS: LORazepam 2 MG TABLET PO PRN (17:00)
[2018-05-14 21:09] LABS: GLUCOMETER DEV NAME(LOC) BV3N.; GLUCOSE,POINT OF CARE 230 MG/DL (70-110)
[2018-05-14] MEDS: DiphenhydrAMINE HCL 25 MG CAPSULE PO SCH (21:18)
[2018-05-14] MEDS: ZOLPIDEM TARTRATE 10 MG TABLET PO PRN (21:18)
[2018-05-14] MEDS: INSULIN GLARGINE,HUM.REC.ANLOG 100 UNITS/ML SQ SCH (21:22)
[2018-05-15] MEDS: MetFORMIN HCL 500 MG TABLET PO SCH ×2 (06:06→16:25)
[2018-05-15] MEDS: GlipiZIDE 10 MG TABLET PO SCH ×2 (06:06→16:25)
[2018-05-15 06:10] LABS: GLUCOMETER DEV NAME(LOC) BV3N.; GLUCOSE,POINT OF CARE 167 MG/DL (70-110)
[2018-05-15] MEDS: INSULIN LISPRO 100 UNITS/ML SQ PRN ×4 (06:21→21:15)
[2018-05-15 07:21] VITALS: BP 122/70
[2018-05-15 08:43] VITALS: BP 113/61
[2018-05-15] MEDS: LISINOPRIL 10 MG TABLET PO SCH (09:19)
[2018-05-15] MEDS: RisperiDONE 4 MG TABLET PO SCH (09:19)
[2018-05-15] MEDS: OMEPRAZOLE 20 MG CAPSULE PO SCH (09:19)
[2018-05-15] MEDS: CHOLECALCIFEROL (VIT D3) 1,000 UNITS TABLET PO SCH (09:19)
[2018-05-15 11:30] LABS: GLUCOMETER DEV NAME(LOC) BV3N.; GLUCOSE,POINT OF CARE 203 MG/DL (70-110)
[2018-05-15] MEDS: LORazepam 2 MG TABLET PO PRN (16:25)
[2018-05-15 16:29] VITALS: BP 107/60
[2018-05-15 17:10] LABS: GLUCOMETER DEV NAME(LOC) BV3N.; GLUCOSE,POINT OF CARE 150 MG/DL (70-110)
[2018-05-15] MEDS: DiphenhydrAMINE HCL 25 MG CAPSULE PO SCH (21:12)
[2018-05-15] MEDS: INSULIN GLARGINE,HUM.REC.ANLOG 100 UNITS/ML SQ SCH (21:15)
[2018-05-15 21:24] LABS: GLUCOMETER DEV NAME(LOC) BV3N.; GLUCOSE,POINT OF CARE 287 MG/DL (70-110)
[2018-05-16 06:29] VITALS: BP 118/72
[2018-05-16 06:30] LABS: GLUCOMETER DEV NAME(LOC) BV3N.; GLUCOSE,POINT OF CARE 112 MG/DL (70-110)
[2018-05-16] MEDS: MetFORMIN HCL 500 MG TABLET PO SCH ×2 (06:31→16:02)
[2018-05-16] MEDS: GlipiZIDE 10 MG TABLET PO SCH ×2 (06:31→16:02)
[2018-05-16 08:03] VITALS: BP 122/72
[2018-05-16] MEDS: CHOLECALCIFEROL (VIT D3) 1,000 UNITS TABLET PO SCH (08:37)
[2018-05-16] MEDS: RisperiDONE 4 MG TABLET PO SCH (08:37)
[2018-05-16] MEDS: OMEPRAZOLE 20 MG CAPSULE PO SCH (08:37)
[2018-05-16] MEDS: LISINOPRIL 10 MG TABLET PO SCH (08:37)
[2018-05-16 08:43] LABS: BASOPHILS % (AUTO) 0.7 % (0.0-2.0); EOSINOPHILS % (AUTO) 1.2 % (1.0-6.0); HEMOGLOBIN 14.5 g/dL (13.5-17.5); LYMPHOCYTES # (AUTO) 2.2 K/uL (1.0-4.8); LYMPHOCYTES % (AUTO) 31.9 % (22.0-44.0); MEAN CORPUSCULAR HEMOGLOBIN 28.6 pg (26.0-34.0); MEAN CORPUSCULAR HGB CONC 33.6 G/dL (31.0-37.0); MEAN CORPUSCULAR VOLUME 85 fL (80-100); MONOCYTES # (AUTO) 0.5 K/uL (0.1-1.0); MONOCYTES % (AUTO) 6.9 % (2.0-9.0); NEUTROPHILS % (AUTO) 59.3 % (40.0-70.0); PLATELET COUNT (AUTO) 537 K/uL (150-450); RED BLOOD CELL COUNT(AUTO) 5.06 MIL/uL (4.50-5.90); RED CELL DISTRIBUTION WIDTH 14.4 % (11.5-14.5)
[2018-05-16 08:51] LABS: HEMOGLOBIN A1C 9.5 % (4.5-6.2)
[2018-05-16 09:37] LABS: ALANINE AMINOTRANSFERASE 43 U/L (12-78); ALBUMIN 3.3 g/dL (3.4-5.0); ALKALINE PHOSPHATASE 123 U/L (46-116); ANION GAP 4 mmol/L (8-16); ASPARTATE AMINOTRANSFERASE 28 U/L (15-37); BILIRUBIN,TOTAL 0.4 mg/dL (0.1-1.0); CALCIUM, TOTAL 8.9 mg/dL (8.8-10.5); CARBON DIOXIDE 32 mmol/L (22-29); CHLORIDE 101 mmol/L (98-107); CHOL/HDL RATIO 4.3 (4.2-7.3); CHOLESTEROL 193 mg/dL (131-200); CREATININE 0.81 mg/dL (0.60-1.30); FREE T4 (FREE THYROXINE) 1.01 ng/dL (0.76-1.46); GLOMERULAR FILTR. RATE CALC > 60 mL/min (>60); GLUCOSE,RANDOM 110 mg/dL (70-110); HDL CHOLESTEROL 45 mg/dL (40-60); LDL CHOL (CALC.) 140 mg/dL (0-130); POTASSIUM 4.4 mmol/L (3.5-5.1); SODIUM SERUM 137 mmol/L (136-145); THYROID STIMULATING HORMONE 0.59 uIU/mL (0.36-3.74); TRIGLYCERIDES 42 mg/dL (15-150); UREA NITROGEN, BLOOD 21 mg/dL (7-18)
[2018-05-16] MEDS: HALOPERIDOL 5 MG TABLET PO PRN (10:38)
[2018-05-16 12:00] LABS: GLUCOMETER DEV NAME(LOC) BV3N.; GLUCOSE,POINT OF CARE 109 MG/DL (70-110)
[2018-05-16 16:00] VITALS: BP 113/66
[2018-05-16] MEDS: LORazepam 2 MG TABLET PO PRN (16:02)
[2018-05-16 17:04] LABS: GLUCOMETER DEV NAME(LOC) BV3N.; GLUCOSE,POINT OF CARE 297 MG/DL (70-110)
[2018-05-16] MEDS: INSULIN LISPRO 100 UNITS/ML SQ PRN ×2 (17:20→20:42)
[2018-05-16] MEDS: DiphenhydrAMINE HCL 25 MG CAPSULE PO SCH (20:36)
[2018-05-16] MEDS: INSULIN GLARGINE,HUM.REC.ANLOG 100 UNITS/ML SQ SCH (20:41)
[2018-05-16 20:49] LABS: GLUCOMETER DEV NAME(LOC) BV3N.; GLUCOSE,POINT OF CARE 153 MG/DL (70-110)
[2018-05-17] MEDS: MetFORMIN HCL 500 MG TABLET PO SCH ×2 (06:33→16:21)
[2018-05-17] MEDS: GlipiZIDE 10 MG TABLET PO SCH ×2 (06:33→16:21)
[2018-05-17 06:37] LABS: GLUCOMETER DEV NAME(LOC) BV3N.; GLUCOSE,POINT OF CARE 86 MG/DL (70-110)
[2018-05-17 07:02] VITALS: BP 122/78
[2018-05-17] MEDS: CHOLECALCIFEROL (VIT D3) 1,000 UNITS TABLET PO SCH (08:42)
[2018-05-17] MEDS: OMEPRAZOLE 20 MG CAPSULE PO SCH (08:42)
[2018-05-17] MEDS: LISINOPRIL 10 MG TABLET PO SCH (08:43)
[2018-05-17] MEDS: RisperiDONE 4 MG TABLET PO SCH (08:46)
[2018-05-17 08:57] VITALS: BP 102/57
[2018-05-17 16:00] VITALS: BP 126/83
[2018-05-17] MEDS: INSULIN LISPRO 100 UNITS/ML SQ PRN ×2 (16:22→21:13)
[2018-05-17 17:04] LABS: GLUCOMETER DEV NAME(LOC) BV3N.; GLUCOSE,POINT OF CARE 209 MG/DL (70-110)
[2018-05-17] MEDS: DiphenhydrAMINE HCL 25 MG CAPSULE PO SCH (21:06)
[2018-05-17] MEDS: ZOLPIDEM TARTRATE 10 MG TABLET PO PRN (21:06)
[2018-05-17] MEDS: INSULIN GLARGINE,HUM.REC.ANLOG 100 UNITS/ML SQ SCH (21:13)
[2018-05-18 02:21] LABS: GLUCOMETER DEV NAME(LOC) BV3N.; GLUCOSE,POINT OF CARE 193 MG/DL (70-110)
[2018-05-18 05:52] VITALS: BP 118/64
[2018-05-18] MEDS: GlipiZIDE 10 MG TABLET PO SCH (06:33)
[2018-05-18] MEDS: MetFORMIN HCL 500 MG TABLET PO SCH (06:45)
[2018-05-18 08:03] VITALS: BP 110/65
[2018-05-18] MEDS: CHOLECALCIFEROL (VIT D3) 1,000 UNITS TABLET PO SCH (08:33)
[2018-05-18] MEDS: RisperiDONE 4 MG TABLET PO SCH (08:33)
[2018-05-18] MEDS: LISINOPRIL 10 MG TABLET PO SCH (08:33)
[2018-05-18] MEDS: OMEPRAZOLE 20 MG CAPSULE PO SCH (08:33)
[2018-05-18 09:35] VITALS: BP 112/64
[2018-05-18 10:39] VITALS: BP 114/68
[2018-05-18 11:44] LABS: GLUCOMETER DEV NAME(LOC) BV3N.; GLUCOSE,POINT OF CARE 77 MG/DL (70-110)
[2018-05-18] MEDS ORDERED: INSLAN SQ (12:17)
[2018-05-18] MEDS ORDERED: DIPH25 PO (12:19)
== END 2018-05-18 13:15 | disposition home or self-care (01) | DRG 750 ==
LOC: B3A 20:22
PROVIDERS: ADMIT Psychiatry & Neurology Child & Adolescent Psychiatry; ATTEND Psychiatry & Neurology Child & Adolescent Psychiatry
DX: F25.0 Schizoaffective disorder, bipolar type (principal); E11.9 Type 2 diabetes mellitus without complications; F41.9 Anxiety disorder, unspecified; K21.9 Gastro-esophageal reflux disease without esophagitis; I10 Essential (primary) hypertension; F14.90 Cocaine use, unspecified, uncomplicated; E55.9 Vitamin D deficiency, unspecified; F15.90 Other stimulant use, unspecified, uncomplicated; F17.200 Nicotine dependence, unspecified, uncomplicated; Z59.0 Homelessness; Z79.84 Long term (current) use of oral hypoglycemic drugs
CPT/HCPCS: 83036; 84436; 84439; 84443; 87081; J1815; Q0162

== ENCOUNTER 2018-06-09 18:38 | Emergency (ER) | payer MEDICAID ==
[~2018-06-09] VITALS: Ht 177.8 cm; Wt 90.9 kg
[~2018-06-09 18:38] MED LIST changes: -RISP2 PO; +RISP4 PO; -VITAD1000 PO
[2018-06-09 18:59] LABS: GLUCOSE,POINT OF CARE 185 MG/DL (70-110)
[2018-06-09 20:14] LABS: EOSINOPHILS % (AUTO) 0.8 % (1.0-6.0); HEMATOCRIT 47.4 % (41-53); HEMOGLOBIN 15.8 g/dL (13.5-17.5); LYMPHOCYTES # (AUTO) 2.6 K/uL (1.0-4.8); LYMPHOCYTES % (AUTO) 32.1 % (22.0-44.0); MEAN CORPUSCULAR HEMOGLOBIN 28.3 pg (26.0-34.0); MEAN CORPUSCULAR HGB CONC 33.3 G/dL (31.0-37.0); MEAN CORPUSCULAR VOLUME 85 fL (80-100); MONOCYTES # (AUTO) 0.7 K/uL (0.1-1.0); MONOCYTES % (AUTO) 8.4 % (2.0-9.0); NEUTROPHILS # (AUTO) 4.7 K/uL (1.8-7.7); NEUTROPHILS % (AUTO) 57.7 % (40.0-70.0); PLATELET COUNT (AUTO) 679 K/uL (150-450); RED BLOOD CELL COUNT(AUTO) 5.58 MIL/uL (4.50-5.90)
[2018-06-09 20:33] LABS: ANION GAP 10 mmol/L (8-16); CALCIUM, TOTAL 9.6 mg/dL (8.8-10.5); CARBON DIOXIDE 26 mmol/L (22-29); CHLORIDE 98 mmol/L (98-107); CREATININE 1.11 mg/dL (0.60-1.30); GLOMERULAR FILTR. RATE CALC > 60 mL/min (>60); GLUCOSE,RANDOM 214 mg/dL (70-110); SODIUM SERUM 134 mmol/L (136-145); UREA NITROGEN, BLOOD 21 mg/dL (7-18)
[2018-06-09 21:02] LABS: ALANINE AMINOTRANSFERASE 43 U/L (12-78); ALBUMIN 4.2 g/dL (3.4-5.0); ALKALINE PHOSPHATASE 166 U/L (46-116); ASPARTATE AMINOTRANSFERASE 30 U/L (15-37); BILIRUBIN,TOTAL 0.9 mg/dL (0.1-1.0); TOTAL PROTEIN, SERUM 8.9 g/dL (6.4-8.2)
[2018-06-09 22:11] LABS: AMPHET/METH SCREEN,URINE POSITIVE (NEGATIVE); BARBITURATE SCREEN, URINE NEGATIVE (NEGATIVE); BENZODIAZEPINES SCREEN,URINE POSITIVE (NEGATIVE); CANNABINOID SCREEN,URINE NEGATIVE (NEGATIVE); COCAINE SCREEN,URINE POSITIVE (NEGATIVE); METHADONE SCREEN, URINE NEGATIVE (NEGATIVE); OPIATE SCREEN,URINE NEGATIVE (NEGATIVE); PHENCYCLIDINE SCREEN,URINE NEGATIVE (NEGATIVE)
[2018-06-10 03:30] VITALS: BP 119/70
== END 2018-06-10 04:09 | disposition home or self-care (01) ==
LOC: EMS 18:39
DX: F32.9 Major depressive disorder, single episode, unspecified (principal); E11.9 Type 2 diabetes mellitus without complications; G47.00 Insomnia, unspecified; I10 Essential (primary) hypertension; Z79.899 Other long term (current) drug therapy; F17.210 Nicotine dependence, cigarettes, uncomplicated; F15.90 Other stimulant use, unspecified, uncomplicated; F11.90 Opioid use, unspecified, uncomplicated
CPT/HCPCS: 36415; 80053; 80307; 82962; 85025; 99284; G0480

== ENCOUNTER 2018-06-18 19:46 | Inpatient (IN) | payer MEDICAID ==
[~2018-06-18] VITALS: Ht 180.3 cm; Wt 95.1 kg
[2018-06-18 20:04] LABS: GLUCOSE,POINT OF CARE 346 MG/DL (70-110)
[2018-06-18 20:27] LABS: BASOPHILS % (AUTO) 0.8 % (0.0-2.0); EOSINOPHILS % (AUTO) 1.2 % (1.0-6.0); HEMATOCRIT 44.3 % (41-53); HEMOGLOBIN 14.9 g/dL (13.5-17.5); LYMPHOCYTES # (AUTO) 2.5 K/uL (1.0-4.8); MEAN CORPUSCULAR HEMOGLOBIN 28.4 pg (26.0-34.0); MEAN CORPUSCULAR HGB CONC 33.5 G/dL (31.0-37.0); MEAN CORPUSCULAR VOLUME 85 fL (80-100); MONOCYTES # (AUTO) 0.5 K/uL (0.1-1.0); MONOCYTES % (AUTO) 5.9 % (2.0-9.0); NEUTROPHILS # (AUTO) 4.7 K/uL (1.8-7.7); NEUTROPHILS % (AUTO) 60.1 % (40.0-70.0); PLATELET COUNT (AUTO) 744 K/uL (150-450); RED BLOOD CELL COUNT(AUTO) 5.23 MIL/uL (4.50-5.90); RED CELL DISTRIBUTION WIDTH 15.5 % (11.5-14.5)
[2018-06-18 20:35] LABS: ANION GAP 12 mmol/L (8-16); CALCIUM, TOTAL 8.9 mg/dL (8.8-10.5); CARBON DIOXIDE 23 mmol/L (22-29); CHLORIDE 98 mmol/L (98-107); CREATININE 0.98 mg/dL (0.60-1.30); GLOMERULAR FILTR. RATE CALC > 60 mL/min (>60); GLUCOSE,RANDOM 286 mg/dL (70-110); POTASSIUM 3.6 mmol/L (3.5-5.1); SODIUM SERUM 133 mmol/L (136-145); UREA NITROGEN, BLOOD 14 mg/dL (7-18)
[2018-06-18 20:41] LABS: ALANINE AMINOTRANSFERASE 25 U/L (12-78); ALBUMIN 3.7 g/dL (3.4-5.0); ALKALINE PHOSPHATASE 163 U/L (46-116); ASPARTATE AMINOTRANSFERASE 20 U/L (15-37); BILIRUBIN,TOTAL 0.3 mg/dL (0.1-1.0)
[2018-06-18] MEDS ORDERED: MetFORMIN HCL 500 MG TABLET PO ONE (22:00)
[2018-06-18] MEDS ORDERED: ONDANSETRON HCL 4 MG TABLET PO ONE (22:00)
[2018-06-18 22:33] LABS: AMPHET/METH SCREEN,URINE POSITIVE (NEGATIVE); BARBITURATE SCREEN, URINE NEGATIVE (NEGATIVE); BENZODIAZEPINES SCREEN,URINE NEGATIVE (NEGATIVE); CANNABINOID SCREEN,URINE NEGATIVE (NEGATIVE); COCAINE SCREEN,URINE NEGATIVE (NEGATIVE); METHADONE SCREEN, URINE NEGATIVE (NEGATIVE); OPIATE SCREEN,URINE NEGATIVE (NEGATIVE); PHENCYCLIDINE SCREEN,URINE NEGATIVE (NEGATIVE)
[2018-06-18] MEDS ORDERED: HALOPERIDOL 5 MG TABLET PO PRN (22:45)
[2018-06-18] MEDS ORDERED: LORazepam 2 MG TABLET PO PRN (22:45)
[2018-06-18] MEDS ORDERED: ZOLPIDEM TARTRATE 10 MG TABLET PO PRN (22:45)
[2018-06-19 03:35] LABS: APPEARANCE,URINE CLEAR (CLEAR); BILIRUBIN,URINE NEGATIVE (NEGATIVE); GLUCOSE, URINE (UA) >=1000 mg/dL (NEGATIVE); KETONES,URINE NEGATIVE (NEGATIVE); LEUKOCYTE ESTERASE ,URINE NEGATIVE (NEGATIVE); NITRATE,URINE NEGATIVE (NEGATIVE); OCCULT BLOOD,URINE NEGATIVE (NEGATIVE); PROTEIN,URINE NEGATIVE (NEGATIVE); UROBILINOGEN,URINE 0.2 mg/dL (<=1.0)
[2018-06-19 03:50] LABS: BACTERIA,URINE None Seen /HPF (None Seen); RBC,URINE None Seen /HPF (0-2); SQUAMOUS EPITHELIAL CELL,UR None Seen /LPF (None Seen); WBC,URINE None Seen /HPF (0-5)
[2018-06-19 09:11] VITALS: BP 112/61
[2018-06-19] MEDS ORDERED: DEXTROSE 50%-WATER 25 GM/50 ML SYRINGE IVP PRN (13:15)
[2018-06-19] MEDS ORDERED: ONDANSETRON HCL 4 MG TABLET PO PRN (13:45)
[2018-06-19] MEDS ORDERED: DOCUSATE SODIUM 100 MG CAPSULE PO PRN (13:45)
[2018-06-19] MEDS ORDERED: PETROLATUM,WHITE 71 GM JELLY TP PRN (13:45)
[2018-06-19] MEDS ORDERED: MAG HYDROX/AL HYDROX/SIMETH ES 30 ML SUSPENSION UDCUP PO PRN (13:45)
[2018-06-19] MEDS ORDERED: GuaiFENesin/D-METHORPHAN [SUGAR-FREE] 200-20MG/10 ML SYRUP UDCUP PO PRN (13:45)
[2018-06-19] MEDS ORDERED: ACETAMINOPHEN 325 MG TABLET PO PRN (13:45)
[2018-06-19] MEDS ORDERED: ALBUTEROL SULFATE HFA 90 MCG/PUFF 8 GM INHALER IH PRN (13:45)
[2018-06-19] MEDS ORDERED: MAGNESIUM HYDROXIDE SUSPENSION 30 ML UDCUP PO PRN (13:45)
[2018-06-19] MEDS ORDERED: CloNIDine HCL 0.1 MG TABLET PO PRN (13:45)
[2018-06-19] MEDS ORDERED: LOPERAMIDE HCL 2 MG CAPSULE PO PRN (13:45)
[2018-06-19] MEDS ORDERED: IBUPROFEN 400 MG TABLET PO PRN (13:45)
[2018-06-19] MEDS ORDERED: NICOTINE 14 MG/24 HOUR PATCH TD PRN (13:45)
[2018-06-19] MEDS: MetFORMIN HCL 500 MG TABLET PO SCH (17:10)
[2018-06-19] MEDS: INSULIN LISPRO 100 UNITS/ML SQ PRN ×2 (17:10→21:37)
[2018-06-19 17:12] VITALS: BP 97/58
[2018-06-19 17:19] LABS: GLUCOMETER DEV NAME(LOC) 3E.I; GLUCOSE,POINT OF CARE 145 MG/DL (70-110)
[2018-06-19] MEDS: INSULIN GLARGINE,HUM.REC.ANLOG 100 UNITS/ML SQ SCH (21:37)
[2018-06-19 21:44] LABS: GLUCOMETER DEV NAME(LOC) 3E.I; GLUCOSE,POINT OF CARE 197 MG/DL (70-110)
[2018-06-20 05:39] LABS: GLUCOMETER DEV NAME(LOC) 3E.I; GLUCOSE,POINT OF CARE 95 MG/DL (70-110)
[2018-06-20] MEDS: MetFORMIN HCL 500 MG TABLET PO SCH ×2 (06:53→17:03)
[2018-06-20 08:05] VITALS: BP 120/74
[2018-06-20] MEDS: ARIPiprazole 10 MG TABLET PO SCH (09:00)
[2018-06-20] MEDS: VENLAFAXINE HCL 75 MG ER CAPSULE PO SCH (10:03)
[2018-06-20] MEDS: OMEPRAZOLE 20 MG CAPSULE PO SCH (10:03)
[2018-06-20 11:53] LABS: GLUCOMETER DEV NAME(LOC) 3E.I; GLUCOSE,POINT OF CARE 120 MG/DL (70-110)
[2018-06-20 16:13] VITALS: BP 133/91
[2018-06-20 16:33] LABS: GLUCOMETER DEV NAME(LOC) 3E.C; GLUCOSE,POINT OF CARE 140 MG/DL (70-110)
[2018-06-20] MEDS: INSULIN LISPRO 100 UNITS/ML SQ PRN (20:55)
[2018-06-20] MEDS: INSULIN GLARGINE,HUM.REC.ANLOG 100 UNITS/ML SQ SCH (20:55)
[2018-06-20 20:59] LABS: GLUCOMETER DEV NAME(LOC) 3E.I; GLUCOSE,POINT OF CARE 275 MG/DL (70-110)
[2018-06-21 05:24] LABS: GLUCOMETER DEV NAME(LOC) 3E.I; GLUCOSE,POINT OF CARE 165 MG/DL (70-110)
[2018-06-21] MEDS: INSULIN LISPRO 100 UNITS/ML SQ PRN ×3 (07:00→17:37)
[2018-06-21] MEDS: MetFORMIN HCL 500 MG TABLET PO SCH ×2 (07:03→16:07)
[2018-06-21] MEDS: ARIPiprazole 10 MG TABLET PO SCH (09:00)
[2018-06-21] MEDS: VENLAFAXINE HCL 75 MG ER CAPSULE PO SCH (10:12)
[2018-06-21] MEDS: OMEPRAZOLE 20 MG CAPSULE PO SCH (10:12)
[2018-06-21 11:44] LABS: GLUCOMETER DEV NAME(LOC) 3E.I; GLUCOSE,POINT OF CARE 197 MG/DL (70-110)
[2018-06-21 14:31] VITALS: BP 108/67
[2018-06-21 16:14] LABS: GLUCOMETER DEV NAME(LOC) 3E.I; GLUCOSE,POINT OF CARE 177 MG/DL (70-110)
[2018-06-21 17:54] VITALS: BP 123/80
[2018-06-21] MEDS: QUEtiapine FUMARATE 100 MG TABLET PO SCH (21:09)
[2018-06-21] MEDS: INSULIN GLARGINE,HUM.REC.ANLOG 100 UNITS/ML SQ SCH (21:11)
[2018-06-21 21:25] LABS: GLUCOMETER DEV NAME(LOC) 3E.I; GLUCOSE,POINT OF CARE 138 MG/DL (70-110)
[2018-06-22 05:39] LABS: GLUCOMETER DEV NAME(LOC) 3E.I; GLUCOSE,POINT OF CARE 130 MG/DL (70-110)
[2018-06-22] MEDS: MetFORMIN HCL 500 MG TABLET PO SCH ×2 (06:36→16:33)
[2018-06-22] MEDS: INSULIN LISPRO 100 UNITS/ML SQ PRN ×3 (06:36→21:09)
[2018-06-22] MEDS: VENLAFAXINE HCL 75 MG ER CAPSULE PO SCH (09:38)
[2018-06-22] MEDS: OMEPRAZOLE 20 MG CAPSULE PO SCH (09:39)
[2018-06-22 09:45] VITALS: BP 111/71
[2018-06-22 11:43] LABS: GLUCOMETER DEV NAME(LOC) 3E.I; GLUCOSE,POINT OF CARE 131 MG/DL (70-110)
[2018-06-22 16:44] LABS: GLUCOMETER DEV NAME(LOC) 3E.I; GLUCOSE,POINT OF CARE 184 MG/DL (70-110)
[2018-06-22 17:09] VITALS: BP 155/78
[2018-06-22] MEDS: QUEtiapine FUMARATE 100 MG TABLET PO SCH (20:53)
[2018-06-22] MEDS: INSULIN GLARGINE,HUM.REC.ANLOG 100 UNITS/ML SQ SCH (21:08)
[2018-06-23 05:54] LABS: GLUCOMETER DEV NAME(LOC) 3E.I; GLUCOSE,POINT OF CARE 87 MG/DL (70-110)
[2018-06-23] MEDS: MetFORMIN HCL 500 MG TABLET PO SCH ×2 (07:07→16:41)
[2018-06-23] MEDS: VENLAFAXINE HCL 75 MG ER CAPSULE PO SCH (09:19)
[2018-06-23] MEDS: OMEPRAZOLE 20 MG CAPSULE PO SCH (09:19)
[2018-06-23 09:54] VITALS: BP 127/89
[2018-06-23 12:04] LABS: GLUCOMETER DEV NAME(LOC) 3E.I; GLUCOSE,POINT OF CARE 104 MG/DL (70-110)
[2018-06-23 16:44] LABS: GLUCOMETER DEV NAME(LOC) 3E.I; GLUCOSE,POINT OF CARE 138 MG/DL (70-110)
[2018-06-23 17:15] VITALS: BP 116/68
[2018-06-23 20:33] LABS: GLUCOMETER DEV NAME(LOC) 3E.I; GLUCOSE,POINT OF CARE 262 MG/DL (70-110)
[2018-06-23] MEDS: QUEtiapine FUMARATE 100 MG TABLET PO SCH (20:36)
[2018-06-23] MEDS: INSULIN LISPRO 100 UNITS/ML SQ PRN (20:37)
[2018-06-23] MEDS: INSULIN GLARGINE,HUM.REC.ANLOG 100 UNITS/ML SQ SCH (20:38)
[2018-06-24 05:49] LABS: GLUCOMETER DEV NAME(LOC) 3E.C; GLUCOSE,POINT OF CARE 105 MG/DL (70-110)
[2018-06-24] MEDS: MetFORMIN HCL 500 MG TABLET PO SCH ×2 (06:47→16:20)
[2018-06-24 08:21] VITALS: BP 137/92
[2018-06-24] MEDS: OMEPRAZOLE 20 MG CAPSULE PO SCH (09:11)
[2018-06-24] MEDS: VENLAFAXINE HCL 75 MG ER CAPSULE PO SCH (09:11)
[2018-06-24 12:03] LABS: GLUCOMETER DEV NAME(LOC) 3E.I; GLUCOSE,POINT OF CARE 97 MG/DL (70-110)
[2018-06-24 16:29] LABS: GLUCOMETER DEV NAME(LOC) 3E.I; GLUCOSE,POINT OF CARE 193 MG/DL (70-110)
[2018-06-24 16:55] VITALS: BP 119/71
[2018-06-24] MEDS: INSULIN LISPRO 100 UNITS/ML SQ PRN ×2 (17:32→20:07)
[2018-06-24] MEDS: QUEtiapine FUMARATE 100 MG TABLET PO SCH (20:05)
[2018-06-24] MEDS: INSULIN GLARGINE,HUM.REC.ANLOG 100 UNITS/ML SQ SCH (20:07)
[2018-06-24 21:18] LABS: GLUCOMETER DEV NAME(LOC) 3E.I; GLUCOSE,POINT OF CARE 240 MG/DL (70-110)
[2018-06-25 06:10] LABS: GLUCOMETER DEV NAME(LOC) 3E.I; GLUCOSE,POINT OF CARE 122 MG/DL (70-110)
[2018-06-25] MEDS: MetFORMIN HCL 500 MG TABLET PO SCH ×2 (06:56→16:33)
[2018-06-25 08:33] VITALS: BP 125/85
[2018-06-25] MEDS: VENLAFAXINE HCL 75 MG ER CAPSULE PO SCH (09:09)
[2018-06-25] MEDS: OMEPRAZOLE 20 MG CAPSULE PO SCH (09:09)
[2018-06-25 12:19] LABS: GLUCOMETER DEV NAME(LOC) 3E.I; GLUCOSE,POINT OF CARE 99 MG/DL (70-110)
[2018-06-25] MEDS: INSULIN LISPRO 100 UNITS/ML SQ PRN ×3 (14:37→20:08)
[2018-06-25 16:42] VITALS: BP 118/74
[2018-06-25 16:48] LABS: GLUCOMETER DEV NAME(LOC) 3E.I; GLUCOSE,POINT OF CARE 180 MG/DL (70-110)
[2018-06-25] MEDS: QUEtiapine FUMARATE 100 MG TABLET PO SCH (20:03)
[2018-06-25] MEDS: INSULIN GLARGINE,HUM.REC.ANLOG 100 UNITS/ML SQ SCH (20:08)
[2018-06-25 20:14] LABS: GLUCOMETER DEV NAME(LOC) 3E.I; GLUCOSE,POINT OF CARE 177 MG/DL (70-110)
[2018-06-26 05:48] LABS: GLUCOMETER DEV NAME(LOC) 3E.I; GLUCOSE,POINT OF CARE 111 MG/DL (70-110)
[2018-06-26] MEDS: MetFORMIN HCL 500 MG TABLET PO SCH ×2 (07:01→16:35)
[2018-06-26] MEDS: INSULIN LISPRO 100 UNITS/ML SQ PRN ×2 (07:16→11:34)
[2018-06-26 08:33] VITALS: BP 132/84
[2018-06-26] MEDS: OMEPRAZOLE 20 MG CAPSULE PO SCH (09:07)
[2018-06-26] MEDS: VENLAFAXINE HCL 75 MG ER CAPSULE PO SCH (09:07)
[2018-06-26 11:29] LABS: GLUCOMETER DEV NAME(LOC) 3E.I; GLUCOSE,POINT OF CARE 73 MG/DL (70-110)
[2018-06-26 18:20] VITALS: BP 104/74
[2018-06-26 18:23] LABS: GLUCOMETER DEV NAME(LOC) 3EX.; GLUCOSE,POINT OF CARE 224 MG/DL (70-110)
[2018-06-26] MEDS: QUEtiapine FUMARATE 100 MG TABLET PO SCH (20:25)
[2018-06-26 20:54] LABS: GLUCOMETER DEV NAME(LOC) 3E.C; GLUCOSE,POINT OF CARE 169 MG/DL (70-110)
[2018-06-26] MEDS: INSULIN GLARGINE,HUM.REC.ANLOG 100 UNITS/ML SQ SCH (21:17)
[2018-06-27 05:34] LABS: GLUCOMETER DEV NAME(LOC) 3E.I; GLUCOSE,POINT OF CARE 133 MG/DL (70-110)
[2018-06-27] MEDS: MetFORMIN HCL 500 MG TABLET PO SCH ×2 (06:39→16:05)
[2018-06-27] MEDS: VENLAFAXINE HCL 75 MG ER CAPSULE PO SCH (08:11)
[2018-06-27] MEDS: OMEPRAZOLE 20 MG CAPSULE PO SCH (08:11)
[2018-06-27 09:46] VITALS: BP 129/85
[2018-06-27 11:48] LABS: GLUCOMETER DEV NAME(LOC) 3E.I; GLUCOSE,POINT OF CARE 126 MG/DL (70-110)
[2018-06-27 16:26] VITALS: BP 115/72
[2018-06-27 16:43] LABS: GLUCOMETER DEV NAME(LOC) 3E.I; GLUCOSE,POINT OF CARE 179 MG/DL (70-110)
[2018-06-27] MEDS: INSULIN LISPRO 100 UNITS/ML SQ PRN ×2 (17:53→21:34)
[2018-06-27] MEDS: QUEtiapine FUMARATE 100 MG TABLET PO SCH (20:05)
[2018-06-27 20:13] LABS: GLUCOMETER DEV NAME(LOC) 3E.I; GLUCOSE,POINT OF CARE 178 MG/DL (70-110)
[2018-06-27] MEDS: INSULIN GLARGINE,HUM.REC.ANLOG 100 UNITS/ML SQ SCH (21:26)
[2018-06-28 05:54] LABS: GLUCOMETER DEV NAME(LOC) 3E.I; GLUCOSE,POINT OF CARE 153 MG/DL (70-110)
[2018-06-28] MEDS: MetFORMIN HCL 500 MG TABLET PO SCH (06:47)
[2018-06-28] MEDS: INSULIN LISPRO 100 UNITS/ML SQ PRN ×2 (06:50→12:18)
[2018-06-28 08:06] VITALS: BP 142/76
[2018-06-28] MEDS: OMEPRAZOLE 20 MG CAPSULE PO SCH (08:46)
[2018-06-28] MEDS: VENLAFAXINE HCL 75 MG ER CAPSULE PO SCH (08:46)
[2018-06-28] MEDS ORDERED: QUET100T PO (10:46)
[2018-06-28] MEDS ORDERED: VENL-67 PO (10:47)
[2018-06-28 11:34] LABS: GLUCOMETER DEV NAME(LOC) 3E.I; GLUCOSE,POINT OF CARE 72 MG/DL (70-110)
== END 2018-06-28 12:30 | disposition home or self-care (01) | DRG 750 ==
LOC: EMS 19:47 → 3EI 22:30
PROVIDERS: ADMIT Psychiatry & Neurology Psychiatry; ATTEND Psychiatry & Neurology Psychiatry
DX: F25.1 Schizoaffective disorder, depressive type (principal); R45.851 Suicidal ideations; E11.9 Type 2 diabetes mellitus without complications; F41.9 Anxiety disorder, unspecified; I10 Essential (primary) hypertension; K21.9 Gastro-esophageal reflux disease without esophagitis; Y90.2 Blood alcohol level of 40-59 mg/100 ml; F15.90 Other stimulant use, unspecified, uncomplicated; F17.210 Nicotine dependence, cigarettes, uncomplicated; F19.90 Other psychoactive substance use, unspecified, uncomplicated; F10.10 Alcohol abuse, uncomplicated; Z71.41 Alcohol abuse counseling and surveillance of alcoholic; Z59.0 Homelessness; Z79.84 Long term (current) use of oral hypoglycemic drugs; Z91.19 Patient's noncompliance with other medical treatment and regimen; Z91.5 Personal history of self-harm; Z71.51 Drug abuse counseling and surveillance of drug abuser
CPT/HCPCS: 83036; 87081; G0480; J1815; Q0162

== ENCOUNTER 2018-09-08 22:22 | Inpatient (IN) | payer MEDICAID ==
[~2018-09-08] VITALS: Ht 170.2 cm; Wt 98.1 kg
[~2018-09-08 22:22] MED LIST changes: +ARIP10TA8 PO; -DIPH25 PO; -GLIP10 PO; -LISI-661 PO; +QUET100T PO; -RISP4 PO; +VENL-67 PO
[2018-09-08] MEDS ORDERED: PANT40TA25 PO (22:49)
[2018-09-08 22:55] LABS: GLUCOSE,POINT OF CARE 330 MG/DL (70-110)
[2018-09-08 23:09] LABS: BASOPHILS % (AUTO) 1.5 % (0.0-2.0); EOSINOPHILS % (AUTO) 1.6 % (1.0-6.0); HEMATOCRIT 42.5 % (41-53); HEMOGLOBIN 14.2 g/dL (13.5-17.5); LYMPHOCYTES # (AUTO) 4.4 K/uL (1.0-4.8); LYMPHOCYTES % (AUTO) 43.1 % (22.0-44.0); MEAN CORPUSCULAR HEMOGLOBIN 27.9 pg (26.0-34.0); MEAN CORPUSCULAR HGB CONC 33.4 G/dL (31.0-37.0); MEAN CORPUSCULAR VOLUME 84 fL (80-100); MONOCYTES # (AUTO) 0.6 K/uL (0.1-1.0); MONOCYTES % (AUTO) 6.2 % (2.0-9.0); NEUTROPHILS # (AUTO) 4.9 K/uL (1.8-7.7); NEUTROPHILS % (AUTO) 47.6 % (40.0-70.0); PLATELET COUNT (AUTO) 672 K/uL (150-450); RED BLOOD CELL COUNT(AUTO) 5.09 MIL/uL (4.50-5.90); RED CELL DISTRIBUTION WIDTH 14.8 % (11.5-14.5)
[2018-09-08] MEDS ORDERED: ONDANSETRON HCL 4 MG TABLET PO ONE (23:15)
[2018-09-08] MEDS ORDERED: MetFORMIN HCL 500 MG TABLET PO ONE (23:15)
[2018-09-08] MEDS ORDERED: OMEPRAZOLE 20 MG CAPSULE PO ONE (23:15)
[2018-09-08 23:19] LABS: ANION GAP 16 mmol/L (8-16); CALCIUM, TOTAL 9.2 mg/dL (8.8-10.5); CARBON DIOXIDE 22 mmol/L (22-29); CHLORIDE 99 mmol/L (98-107); CREATININE 1.14 mg/dL (0.60-1.30); GLOMERULAR FILTR. RATE CALC > 60 mL/min (>60); GLUCOSE,RANDOM 349 mg/dL (70-110); POTASSIUM 3.7 mmol/L (3.5-5.1); SODIUM SERUM 137 mmol/L (136-145); UREA NITROGEN, BLOOD 18 mg/dL (7-18)
[2018-09-08 23:25] LABS: ALANINE AMINOTRANSFERASE 38 U/L (12-78); ALBUMIN 3.6 g/dL (3.4-5.0); ALKALINE PHOSPHATASE 190 U/L (46-116); ASPARTATE AMINOTRANSFERASE 41 U/L (15-37); BILIRUBIN,TOTAL 0.2 mg/dL (0.1-1.0); TOTAL PROTEIN, SERUM 7.5 g/dL (6.4-8.2)
[2018-09-09 00:04] LABS: APPEARANCE,URINE CLEAR (CLEAR); BILIRUBIN,URINE NEGATIVE (NEGATIVE); GLUCOSE, URINE (UA) >=1000 mg/dL (NEGATIVE); KETONES,URINE TRACE mg/dL (NEGATIVE); LEUKOCYTE ESTERASE ,URINE NEGATIVE (NEGATIVE); NITRATE,URINE NEGATIVE (NEGATIVE); OCCULT BLOOD,URINE NEGATIVE (NEGATIVE); PH,URINE 5.5 (5.0-8.0); PROTEIN,URINE NEGATIVE (NEGATIVE)
[2018-09-09 00:11] LABS: AMPHET/METH SCREEN,URINE NEGATIVE (NEGATIVE); BARBITURATE SCREEN, URINE NEGATIVE (NEGATIVE); BENZODIAZEPINES SCREEN,URINE NEGATIVE (NEGATIVE); CANNABINOID SCREEN,URINE NEGATIVE (NEGATIVE); COCAINE SCREEN,URINE NEGATIVE (NEGATIVE); METHADONE SCREEN, URINE NEGATIVE (NEGATIVE); OPIATE SCREEN,URINE NEGATIVE (NEGATIVE)
[2018-09-09 00:12] LABS: PHENCYCLIDINE SCREEN,URINE NEGATIVE (NEGATIVE)
[2018-09-09 00:14] LABS: BACTERIA,URINE None Seen /HPF (None Seen); RBC,URINE 0-2 /HPF (0-2); SQUAMOUS EPITHELIAL CELL,UR Rare /LPF (None Seen); WBC,URINE 0-2 /HPF (0-5)
[2018-09-09] MEDS ORDERED: HALOPERIDOL 5 MG TABLET PO PRN (03:00)
[2018-09-09] MEDS ORDERED: ZOLPIDEM TARTRATE 10 MG TABLET PO PRN (03:00)
[2018-09-09] MEDS ORDERED: LORazepam 2 MG TABLET PO PRN (03:00)
[2018-09-09 03:57] VITALS: BP 158/70
[2018-09-09 04:13] VITALS: BP 158/70
[2018-09-09] MEDS ORDERED: PNEUMOCOCCAL VACCINE POLYVALENT 0.5 ML VIAL [PPSV23] IM ONE (06:15)
[2018-09-09 06:30] LABS: GLUCOMETER DEV NAME(LOC) 3E.I; GLUCOSE,POINT OF CARE 242 MG/DL (70-110)
[2018-09-09 08:47] VITALS: BP 145/76
[2018-09-09] MEDS ORDERED: GLUCAGON,HUMAN RECOMBINANT 1 MG VIAL IM PRN (10:30)
[2018-09-09] MEDS ORDERED: INSULIN LISPRO 100 UNITS/ML SQ PRN (10:30)
[2018-09-09] MEDS: PANTOPRAZOLE SODIUM 40 MG DR TABLET PO SCH (10:30)
[2018-09-09] MEDS ORDERED: DEXTROSE 50%-WATER 25 GM/50 ML SYRINGE IVP PRN (11:00)
[2018-09-09] MEDS: VENLAFAXINE HCL 75 MG ER CAPSULE PO SCH (14:25)
[2018-09-09 16:06] VITALS: BP 119/54
[2018-09-09 16:24] LABS: GLUCOMETER DEV NAME(LOC) 3E.I; GLUCOSE,POINT OF CARE 264 MG/DL (70-110)
[2018-09-09] MEDS: MetFORMIN HCL 500 MG TABLET PO SCH (17:11)
[2018-09-09] MEDS: INSULIN LISPRO 100 UNITS/ML SQ PRN ×2 (17:26→20:50)
[2018-09-09] MEDS: INSULIN GLARGINE,HUM.REC.ANLOG 100 UNITS/ML SQ SCH (20:46)
[2018-09-09] MEDS: QUEtiapine FUMARATE 200 MG TABLET PO SCH (20:46)
[2018-09-09 20:49] LABS: GLUCOMETER DEV NAME(LOC) 3E.I; GLUCOSE,POINT OF CARE 245 MG/DL (70-110)
[2018-09-10 06:20] LABS: GLUCOMETER DEV NAME(LOC) 3E.I; GLUCOSE,POINT OF CARE 128 MG/DL (70-110)
[2018-09-10 06:36] LABS: CHOL/HDL RATIO 4.5 (4.2-7.3)
[2018-09-10] MEDS: PANTOPRAZOLE SODIUM 40 MG DR TABLET PO SCH (06:41)
[2018-09-10] MEDS: MetFORMIN HCL 500 MG TABLET PO SCH ×2 (06:42→16:32)
[2018-09-10 06:55] LABS: FREE T4 (FREE THYROXINE) 0.98 ng/dL (0.76-1.46); THYROID STIMULATING HORMONE 0.21 uIU/mL (0.36-3.74)
[2018-09-10 08:45] VITALS: BP 160/97
[2018-09-10] MEDS: THIAMINE HCL 100 MG TABLET PO SCH (09:17)
[2018-09-10] MEDS: MULTIVITAMINS WITH MINERALS, THERAPEUTIC TABLET PO SCH (09:17)
[2018-09-10] MEDS: FOLIC ACID 1 MG TABLET PO SCH (09:17)
[2018-09-10] MEDS: VENLAFAXINE HCL 75 MG ER CAPSULE PO SCH (09:18)
[2018-09-10 11:30] LABS: GLUCOMETER DEV NAME(LOC) 3E.I; GLUCOSE,POINT OF CARE 163 MG/DL (70-110)
[2018-09-10] MEDS: INSULIN LISPRO 100 UNITS/ML SQ PRN ×3 (11:37→20:12)
[2018-09-10 16:36] VITALS: BP 120/86
[2018-09-10 17:15] LABS: GLUCOMETER DEV NAME(LOC) 3E.I; GLUCOSE,POINT OF CARE 196 MG/DL (70-110)
[2018-09-10] MEDS: QUEtiapine FUMARATE 200 MG TABLET PO SCH (20:11)
[2018-09-10] MEDS: INSULIN GLARGINE,HUM.REC.ANLOG 100 UNITS/ML SQ SCH (20:12)
[2018-09-10 20:20] LABS: GLUCOMETER DEV NAME(LOC) 3E.I; GLUCOSE,POINT OF CARE 228 MG/DL (70-110)
[2018-09-11 06:29] LABS: GLUCOMETER DEV NAME(LOC) 3E.I; GLUCOSE,POINT OF CARE 126 MG/DL (70-110)
[2018-09-11] MEDS: PANTOPRAZOLE SODIUM 40 MG DR TABLET PO SCH (06:40)
[2018-09-11] MEDS: INSULIN LISPRO 100 UNITS/ML SQ PRN ×3 (06:41→21:13)
[2018-09-11] MEDS: MetFORMIN HCL 500 MG TABLET PO SCH ×2 (06:41→17:24)
[2018-09-11] MEDS: THIAMINE HCL 100 MG TABLET PO SCH (08:05)
[2018-09-11] MEDS: VENLAFAXINE HCL 75 MG ER CAPSULE PO SCH (08:05)
[2018-09-11] MEDS: FOLIC ACID 1 MG TABLET PO SCH (08:05)
[2018-09-11] MEDS: MULTIVITAMINS WITH MINERALS, THERAPEUTIC TABLET PO SCH (08:05)
[2018-09-11 11:19] LABS: GLUCOMETER DEV NAME(LOC) 3E.I; GLUCOSE,POINT OF CARE 155 MG/DL (70-110)
[2018-09-11 12:50] VITALS: BP 124/66
[2018-09-11 16:14] LABS: GLUCOMETER DEV NAME(LOC) 3E.I; GLUCOSE,POINT OF CARE 75 MG/DL (70-110)
[2018-09-11 17:02] VITALS: BP 113/71
[2018-09-11 20:14] LABS: GLUCOMETER DEV NAME(LOC) 3E.I; GLUCOSE,POINT OF CARE 290 MG/DL (70-110)
[2018-09-11] MEDS: QUEtiapine FUMARATE 200 MG TABLET PO SCH (21:12)
[2018-09-11] MEDS: INSULIN GLARGINE,HUM.REC.ANLOG 100 UNITS/ML SQ SCH (21:13)
[2018-09-12 05:56] LABS: GLUCOMETER DEV NAME(LOC) 3E.I; GLUCOSE,POINT OF CARE 110 MG/DL (70-110)
[2018-09-12] MEDS: MetFORMIN HCL 500 MG TABLET PO SCH (06:59)
[2018-09-12] MEDS: PANTOPRAZOLE SODIUM 40 MG DR TABLET PO SCH (06:59)
[2018-09-12] MEDS: VENLAFAXINE HCL 75 MG ER CAPSULE PO SCH (09:34)
[2018-09-12] MEDS: MULTIVITAMINS WITH MINERALS, THERAPEUTIC TABLET PO SCH (09:34)
[2018-09-12] MEDS: THIAMINE HCL 100 MG TABLET PO SCH (09:34)
[2018-09-12] MEDS: FOLIC ACID 1 MG TABLET PO SCH (09:34)
[2018-09-12 09:38] VITALS: BP 106/69
[2018-09-12 11:44] LABS: GLUCOMETER DEV NAME(LOC) 3E.I; GLUCOSE,POINT OF CARE 112 MG/DL (70-110)
[2018-09-12] MEDS: INSULIN LISPRO 100 UNITS/ML SQ PRN (12:05)
[2018-09-12] MEDS ORDERED: VENL75CA55 PO (13:18)
[2018-09-12] MEDS ORDERED: QUET200T29 PO (13:18)
== END 2018-09-12 15:15 | disposition home or self-care (01) | DRG 750 ==
LOC: EMS 22:30 → 3EI 09-09 03:07
DX: F25.0 Schizoaffective disorder, bipolar type (principal); R45.851 Suicidal ideations; E11.9 Type 2 diabetes mellitus without complications; D47.3 Essential (hemorrhagic) thrombocythemia; F10.10 Alcohol abuse, uncomplicated; F14.90 Cocaine use, unspecified, uncomplicated; Y90.6 Blood alcohol level of 120-199 mg/100 ml; F41.9 Anxiety disorder, unspecified; F15.10 Other stimulant abuse, uncomplicated; I10 Essential (primary) hypertension; K21.9 Gastro-esophageal reflux disease without esophagitis; F17.210 Nicotine dependence, cigarettes, uncomplicated; Z59.0 Homelessness; Z91.5 Personal history of self-harm; Z71.51 Drug abuse counseling and surveillance of drug abuser; Z71.41 Alcohol abuse counseling and surveillance of alcoholic; Z79.899 Other long term (current) drug therapy
CPT/HCPCS: 80074; 83036; 84439; 84443; G0480; J1815; Q0162

== ENCOUNTER 2018-10-11 19:22 | Emergency (ER) | payer MEDICAID ==
[~2018-10-11] VITALS: Ht 180.3 cm; Wt 93.2 kg
[~2018-10-11 19:22] MED LIST changes: -ARIP10TA8 PO; -OMEP20 PO; +PANT40TA25 PO; -QUET100T PO; +QUET200T29 PO; -VENL-67 PO; +VENL75CA55 PO
[2018-10-11 19:43] LABS: GLUCOSE,POINT OF CARE 405 MG/DL (70-110)
[2018-10-11 20:54] LABS: BASOPHILS % (AUTO) 0.9 % (0.0-2.0); EOSINOPHILS % (AUTO) 0.9 % (1.0-6.0); HEMATOCRIT 44.6 % (41-53); HEMOGLOBIN 14.5 g/dL (13.5-17.5); LYMPHOCYTES # (AUTO) 3.3 K/uL (1.0-4.8); MEAN CORPUSCULAR HEMOGLOBIN 27.9 pg (26.0-34.0); MEAN CORPUSCULAR HGB CONC 32.4 G/dL (31.0-37.0); MEAN CORPUSCULAR VOLUME 86 fL (80-100); MONOCYTES # (AUTO) 0.4 K/uL (0.1-1.0); MONOCYTES % (AUTO) 4.7 % (2.0-9.0); NEUTROPHILS # (AUTO) 4.4 K/uL (1.8-7.7); NEUTROPHILS % (AUTO) 53.5 % (40.0-70.0); PLATELET COUNT (AUTO) 631 K/uL (150-450); RED CELL DISTRIBUTION WIDTH 15.4 % (11.5-14.5)
[2018-10-11 21:43] LABS: ANION GAP 22 mmol/L (8-16); CARBON DIOXIDE 19 mmol/L (22-29); CHLORIDE 98 mmol/L (98-107); CREATININE 1.23 mg/dL (0.60-1.30); GLOMERULAR FILTR. RATE CALC > 60 mL/min (>60); GLUCOSE,RANDOM 395 mg/dL (70-110); POTASSIUM 3.7 mmol/L (3.5-5.1); SODIUM SERUM 139 mmol/L (136-145); UREA NITROGEN, BLOOD 19 mg/dL (7-18)
[2018-10-11 21:49] LABS: ALANINE AMINOTRANSFERASE 29 U/L (12-78); ALBUMIN 3.6 g/dL (3.4-5.0); ALKALINE PHOSPHATASE 160 U/L (46-116); ASPARTATE AMINOTRANSFERASE 25 U/L (15-37); BILIRUBIN,TOTAL 0.3 mg/dL (0.1-1.0); TOTAL PROTEIN, SERUM 7.9 g/dL (6.4-8.2)
[2018-10-11] MEDS ORDERED: SODIUM CHLORIDE 0.9% 1,000 ML IV ONE ×2 (22:30→23:15)
[2018-10-11] MEDS ORDERED: INSULIN REGULAR, HUMAN 100 UNITS/ML IVP ONE (22:30)
[2018-10-11 23:09] LABS: GLUCOSE,POINT OF CARE 369 MG/DL (70-110)
[2018-10-12 00:24] LABS: GLUCOSE,POINT OF CARE 236 MG/DL (70-110)
[2018-10-12 05:25] VITALS: BP 116/69
== END 2018-10-12 05:39 | disposition home or self-care (01) ==
LOC: EMS 19:25
DX: E11.65 Type 2 diabetes mellitus with hyperglycemia (principal); F20.9 Schizophrenia, unspecified; F41.9 Anxiety disorder, unspecified; F32.9 Major depressive disorder, single episode, unspecified; I10 Essential (primary) hypertension; F14.90 Cocaine use, unspecified, uncomplicated; F15.90 Other stimulant use, unspecified, uncomplicated; F17.210 Nicotine dependence, cigarettes, uncomplicated
CPT/HCPCS: 36415; 80053; 82009; 82962; 85025; 96361; 96374; 99283; G0480; J1815; J7030

== ENCOUNTER 2018-10-12 19:16 | Inpatient (IN) | payer MEDICAID ==
[~2018-10-12] VITALS: Ht 180.3 cm; Wt 98.4 kg
[2018-10-12 20:24] LABS: GLUCOSE,POINT OF CARE 460 MG/DL (70-110)
[2018-10-12 20:50] LABS: BASOPHILS % (AUTO) 1.4 % (0.0-2.0); EOSINOPHILS % (AUTO) 1.1 % (1.0-6.0); HEMATOCRIT 40.9 % (41-53); HEMOGLOBIN 13.2 g/dL (13.5-17.5); LYMPHOCYTES # (AUTO) 2.3 K/uL (1.0-4.8); LYMPHOCYTES % (AUTO) 38.3 % (22.0-44.0); MEAN CORPUSCULAR HEMOGLOBIN 27.7 pg (26.0-34.0); MEAN CORPUSCULAR HGB CONC 32.4 G/dL (31.0-37.0); MEAN CORPUSCULAR VOLUME 86 fL (80-100); MONOCYTES # (AUTO) 0.4 K/uL (0.1-1.0); MONOCYTES % (AUTO) 6.5 % (2.0-9.0); NEUTROPHILS # (AUTO) 3.2 K/uL (1.8-7.7); NEUTROPHILS % (AUTO) 52.7 % (40.0-70.0); PLATELET COUNT (AUTO) 536 K/uL (150-450); RED BLOOD CELL COUNT(AUTO) 4.77 MIL/uL (4.50-5.90)
[2018-10-12 21:17] LABS: ALANINE AMINOTRANSFERASE 26 U/L (12-78); ALBUMIN 3.4 g/dL (3.4-5.0); ALKALINE PHOSPHATASE 159 U/L (46-116); ANION GAP 13 mmol/L (8-16); ASPARTATE AMINOTRANSFERASE 20 U/L (15-37); BILIRUBIN,TOTAL 0.2 mg/dL (0.1-1.0); CALCIUM, TOTAL 8.4 mg/dL (8.8-10.5); CARBON DIOXIDE 23 mmol/L (22-29); CHLORIDE 100 mmol/L (98-107); CREATININE 1.13 mg/dL (0.60-1.30); GLOMERULAR FILTR. RATE CALC > 60 mL/min (>60); LIPASE 41 U/L (73-393); POTASSIUM 4.2 mmol/L (3.5-5.1); SODIUM SERUM 136 mmol/L (136-145); TOTAL PROTEIN, SERUM 7.3 g/dL (6.4-8.2); UREA NITROGEN, BLOOD 13 mg/dL (7-18)
[2018-10-12 21:24] LABS: GLUCOSE,RANDOM 483 mg/dL (70-110)
[2018-10-12] MEDS ORDERED: RisperiDONE 1 MG TABLET PO ONE (22:00)
[2018-10-12] MEDS ORDERED: DiphenhydrAMINE HCL 25 MG CAPSULE PO ONE (22:00)
[2018-10-12] MEDS ORDERED: LORazepam 2 MG TABLET PO ONE (22:00)
[2018-10-12] MEDS ORDERED: INSULIN REGULAR, HUMAN 100 UNITS/ML SQ ONE (22:00)
[2018-10-12 22:14] LABS: APPEARANCE,URINE CLEAR (CLEAR); BILIRUBIN,URINE NEGATIVE (NEGATIVE); GLUCOSE, URINE (UA) >=1000 mg/dL (NEGATIVE); KETONES,URINE NEGATIVE (NEGATIVE); LEUKOCYTE ESTERASE ,URINE NEGATIVE (NEGATIVE); NITRATE,URINE NEGATIVE (NEGATIVE); OCCULT BLOOD,URINE NEGATIVE (NEGATIVE); PH,URINE 5.5 (5.0-8.0); PROTEIN,URINE NEGATIVE (NEGATIVE)
[2018-10-12 22:17] LABS: AMPHET/METH SCREEN,URINE NEGATIVE (NEGATIVE); BARBITURATE SCREEN, URINE NEGATIVE (NEGATIVE); BENZODIAZEPINES SCREEN,URINE NEGATIVE (NEGATIVE); CANNABINOID SCREEN,URINE NEGATIVE (NEGATIVE); COCAINE SCREEN,URINE NEGATIVE (NEGATIVE); METHADONE SCREEN, URINE NEGATIVE (NEGATIVE); OPIATE SCREEN,URINE NEGATIVE (NEGATIVE)
[2018-10-12 22:21] LABS: PHENCYCLIDINE SCREEN,URINE NEGATIVE (NEGATIVE)
[2018-10-12 22:23] LABS: BACTERIA,URINE None Seen /HPF (None Seen); RBC,URINE None Seen /HPF (0-2); WBC,URINE None Seen /HPF (0-5)
[2018-10-12] MEDS ORDERED: HALOPERIDOL 5 MG TABLET PO PRN (22:30)
[2018-10-12] MEDS ORDERED: ZOLPIDEM TARTRATE 10 MG TABLET PO PRN (22:30)
[2018-10-12 22:39] LABS: ACETONE,BLOOD NEGATIVE (NEGATIVE)
[2018-10-12 23:29] LABS: GLUCOSE,POINT OF CARE 371 MG/DL (70-110)
[2018-10-13 01:49] LABS: GLUCOSE,POINT OF CARE 211 MG/DL (70-110)
[2018-10-13 03:18] VITALS: BP 133/96
[2018-10-13 03:18] LABS: GLUCOMETER DEV NAME(LOC) BV2S.; GLUCOSE,POINT OF CARE 150 MG/DL (70-110)
[2018-10-13] MEDS ORDERED: PNEUMOCOCCAL VACCINE POLYVALENT 0.5 ML VIAL [PPSV23] IM ONE (06:30)
[2018-10-13] MEDS ORDERED: MAG HYDROX/AL HYDROX/SIMETH ES 30 ML SUSPENSION UDCUP PO PRN (07:30)
[2018-10-13] MEDS ORDERED: ONDANSETRON HCL 4 MG TABLET PO PRN (07:30)
[2018-10-13] MEDS ORDERED: MAGNESIUM HYDROXIDE SUSPENSION 30 ML UDCUP PO PRN (07:30)
[2018-10-13] MEDS ORDERED: NICOTINE 14 MG/24 HOUR PATCH TD PRN (07:30)
[2018-10-13] MEDS ORDERED: ALBUTEROL SULFATE HFA 90 MCG/PUFF 8 GM INHALER IH PRN (07:30)
[2018-10-13] MEDS ORDERED: IBUPROFEN 400 MG TABLET PO PRN (07:30)
[2018-10-13] MEDS ORDERED: ACETAMINOPHEN 325 MG TABLET PO PRN (07:30)
[2018-10-13] MEDS ORDERED: CloNIDine HCL 0.1 MG TABLET PO PRN (07:30)
[2018-10-13] MEDS ORDERED: LOPERAMIDE HCL 2 MG CAPSULE PO PRN (07:30)
[2018-10-13] MEDS ORDERED: DOCUSATE SODIUM 100 MG CAPSULE PO PRN (07:30)
[2018-10-13] MEDS ORDERED: PETROLATUM,WHITE 28 GM JELLY TP PRN (07:30)
[2018-10-13] MEDS ORDERED: GuaiFENesin/D-METHORPHAN [SUGAR-FREE] 200-20MG/10 ML SYRUP UDCUP PO PRN (07:30)
[2018-10-13 07:45] VITALS: BP 118/77
[2018-10-13 08:00] VITALS: BP 118/77
[2018-10-13 08:47] LABS: CHOL/HDL RATIO 3.4 (4.2-7.3)
[2018-10-13] MEDS ORDERED: DEXTROSE 50%-WATER 25 GM/50 ML SYRINGE IVP PRN (10:15)
[2018-10-13] MEDS: VENLAFAXINE HCL 75 MG ER CAPSULE PO SCH (10:37)
[2018-10-13] MEDS: LORazepam 2 MG TABLET PO PRN (10:44)
[2018-10-13] MEDS: INSULIN LISPRO 100 UNITS/ML SQ PRN ×3 (10:50→21:10)
[2018-10-13 11:09] LABS: GLUCOMETER DEV NAME(LOC) BV2S.; GLUCOSE,POINT OF CARE 272 MG/DL (70-110)
[2018-10-13] MEDS: MetFORMIN HCL 500 MG TABLET PO SCH (16:33)
[2018-10-13 16:34] LABS: GLUCOMETER DEV NAME(LOC) BV2S.; GLUCOSE,POINT OF CARE 181 MG/DL (70-110)
[2018-10-13 16:40] VITALS: BP 121/68
[2018-10-13 20:48] LABS: GLUCOMETER DEV NAME(LOC) BV2S.; GLUCOSE,POINT OF CARE 264 MG/DL (70-110)
[2018-10-13] MEDS: QUEtiapine FUMARATE 200 MG TABLET PO SCH (21:03)
[2018-10-13] MEDS: INSULIN GLARGINE,HUM.REC.ANLOG 100 UNITS/ML SQ SCH (21:10)
[2018-10-13] MEDS ORDERED: GLUCAGON,HUMAN RECOMBINANT 1 MG VIAL IM PRN (22:00)
[2018-10-14 00:46] VITALS: BP 131/88
[2018-10-14] MEDS: MetFORMIN HCL 500 MG TABLET PO SCH ×2 (06:47→17:06)
[2018-10-14] MEDS: PANTOPRAZOLE SODIUM 40 MG DR TABLET PO SCH (06:47)
[2018-10-14] MEDS: INSULIN LISPRO 100 UNITS/ML SQ PRN ×4 (06:50→20:59)
[2018-10-14 06:54] LABS: GLUCOMETER DEV NAME(LOC) BV2S.; GLUCOSE,POINT OF CARE 143 MG/DL (70-110)
[2018-10-14 08:06] LABS: BASOPHILS % (AUTO) 0.7 % (0.0-2.0); EOSINOPHILS % (AUTO) 1.1 % (1.0-6.0); HEMOGLOBIN 14.2 g/dL (13.5-17.5); LYMPHOCYTES # (AUTO) 1.8 K/uL (1.0-4.8); LYMPHOCYTES % (AUTO) 32.4 % (22.0-44.0); MEAN CORPUSCULAR HEMOGLOBIN 27.7 pg (26.0-34.0); MEAN CORPUSCULAR HGB CONC 32.2 G/dL (31.0-37.0); MEAN CORPUSCULAR VOLUME 86 fL (80-100); MONOCYTES # (AUTO) 0.3 K/uL (0.1-1.0); MONOCYTES % (AUTO) 5.8 % (2.0-9.0); NEUTROPHILS # (AUTO) 3.4 K/uL (1.8-7.7); PLATELET COUNT (AUTO) 479 K/uL (150-450); RED BLOOD CELL COUNT(AUTO) 5.12 MIL/uL (4.50-5.90); RED CELL DISTRIBUTION WIDTH 15.8 % (11.5-14.5)
[2018-10-14 08:19] LABS: HEMOGLOBIN A1C 8.8 % (4.5-6.2)
[2018-10-14 08:30] VITALS: BP 122/77
[2018-10-14 08:31] LABS: ALANINE AMINOTRANSFERASE 22 U/L (12-78); ALBUMIN 3.2 g/dL (3.4-5.0); ALKALINE PHOSPHATASE 116 U/L (46-116); ANION GAP 9 mmol/L (8-16); ASPARTATE AMINOTRANSFERASE 17 U/L (15-37); BILIRUBIN,TOTAL 0.5 mg/dL (0.1-1.0); CALCIUM, TOTAL 9.1 mg/dL (8.8-10.5); CARBON DIOXIDE 28 mmol/L (22-29); CHLORIDE 104 mmol/L (98-107); CHOL/HDL RATIO 3.7 (4.2-7.3); CHOLESTEROL 247 mg/dL (131-200); CREATININE 0.92 mg/dL (0.60-1.30); GLOMERULAR FILTR. RATE CALC > 60 mL/min (>60); GLUCOSE,RANDOM 127 mg/dL (70-110); HDL CHOLESTEROL 66 mg/dL (40-60); LDL CHOL (CALC.) 159 mg/dL (0-130); POTASSIUM 3.8 mmol/L (3.5-5.1); SODIUM SERUM 141 mmol/L (136-145); THYROID STIMULATING HORMONE 0.39 uIU/mL (0.36-3.74); TOTAL PROTEIN, SERUM 7.2 g/dL (6.4-8.2); TRIGLYCERIDES 109 mg/dL (15-150); UREA NITROGEN, BLOOD 15 mg/dL (7-18)
[2018-10-14] MEDS: VENLAFAXINE HCL 75 MG ER CAPSULE PO SCH (08:34)
[2018-10-14 11:05] LABS: GLUCOMETER DEV NAME(LOC) BV2S.; GLUCOSE,POINT OF CARE 169 MG/DL (70-110)
[2018-10-14] MEDS: LORazepam 2 MG TABLET PO PRN (15:24)
[2018-10-14 16:08] VITALS: BP 141/81
[2018-10-14 17:00] LABS: GLUCOMETER DEV NAME(LOC) BV2S.; GLUCOSE,POINT OF CARE 172 MG/DL (70-110)
[2018-10-14] MEDS: QUEtiapine FUMARATE 200 MG TABLET PO SCH (20:55)
[2018-10-14] MEDS: INSULIN GLARGINE,HUM.REC.ANLOG 100 UNITS/ML SQ SCH (20:59)
[2018-10-14 21:28] LABS: GLUCOMETER DEV NAME(LOC) BV2S.; GLUCOSE,POINT OF CARE 164 MG/DL (70-110)
[2018-10-15 06:41] VITALS: BP 140/91
[2018-10-15 06:44] LABS: GLUCOMETER DEV NAME(LOC) BV2S.; GLUCOSE,POINT OF CARE 86 MG/DL (70-110)
[2018-10-15] MEDS: MetFORMIN HCL 500 MG TABLET PO SCH ×2 (06:51→17:18)
[2018-10-15] MEDS: PANTOPRAZOLE SODIUM 40 MG DR TABLET PO SCH (06:51)
[2018-10-15] MEDS: VENLAFAXINE HCL 75 MG ER CAPSULE PO SCH (08:27)
[2018-10-15 08:43] VITALS: BP 140/86
[2018-10-15] MEDS: INSULIN LISPRO 100 UNITS/ML SQ PRN ×2 (11:02→17:59)
[2018-10-15 11:09] LABS: GLUCOMETER DEV NAME(LOC) BV2S.; GLUCOSE,POINT OF CARE 211 MG/DL (70-110)
[2018-10-15] MEDS: LORazepam 2 MG TABLET PO PRN ×2 (11:55→17:46)
[2018-10-15 16:45] VITALS: BP 127/96
[2018-10-15 16:59] LABS: GLUCOMETER DEV NAME(LOC) BV2S.; GLUCOSE,POINT OF CARE 198 MG/DL (70-110)
[2018-10-15] MEDS: QUEtiapine FUMARATE 200 MG TABLET PO SCH (20:35)
[2018-10-15 20:48] LABS: GLUCOMETER DEV NAME(LOC) BV2S.; GLUCOSE,POINT OF CARE 258 MG/DL (70-110)
[2018-10-15] MEDS: INSULIN GLARGINE,HUM.REC.ANLOG 100 UNITS/ML SQ SCH (21:08)
[2018-10-16 00:23] VITALS: BP 124/77
[2018-10-16] MEDS: PANTOPRAZOLE SODIUM 40 MG DR TABLET PO SCH (06:36)
[2018-10-16] MEDS: MetFORMIN HCL 500 MG TABLET PO SCH ×2 (06:37→17:05)
[2018-10-16 06:49] LABS: GLUCOMETER DEV NAME(LOC) BV2S.; GLUCOSE,POINT OF CARE 117 MG/DL (70-110)
[2018-10-16 08:43] VITALS: BP 140/88
[2018-10-16] MEDS: VENLAFAXINE HCL 75 MG ER CAPSULE PO SCH (08:57)
[2018-10-16] MEDS: NEOMYCIN/BACITRACIN/POLYMYXIN B 30 GM OINTMENT TP SCH ×2 (10:30→16:39)
[2018-10-16] MEDS: INSULIN LISPRO 100 UNITS/ML SQ PRN ×2 (11:21→20:43)
[2018-10-16] MEDS: LORazepam 2 MG TABLET PO PRN ×2 (11:27→16:39)
[2018-10-16 11:44] LABS: GLUCOMETER DEV NAME(LOC) BV2S.; GLUCOSE,POINT OF CARE 247 MG/DL (70-110)
[2018-10-16 16:02] VITALS: BP 121/86
[2018-10-16 16:59] LABS: GLUCOMETER DEV NAME(LOC) BV2S.; GLUCOSE,POINT OF CARE 132 MG/DL (70-110)
[2018-10-16] MEDS: QUEtiapine FUMARATE 200 MG TABLET PO SCH (20:39)
[2018-10-16] MEDS: INSULIN GLARGINE,HUM.REC.ANLOG 100 UNITS/ML SQ SCH (20:42)
[2018-10-16 20:54] LABS: GLUCOMETER DEV NAME(LOC) BV2S.; GLUCOSE,POINT OF CARE 228 MG/DL (70-110)
[2018-10-17 01:24] VITALS: BP 141/90
[2018-10-17] MEDS: LORazepam 2 MG TABLET PO PRN ×3 (01:52→16:29)
[2018-10-17 06:34] LABS: GLUCOMETER DEV NAME(LOC) BV2S.; GLUCOSE,POINT OF CARE 72 MG/DL (70-110)
[2018-10-17] MEDS: PANTOPRAZOLE SODIUM 40 MG DR TABLET PO SCH (06:35)
[2018-10-17] MEDS: MetFORMIN HCL 500 MG TABLET PO SCH ×2 (06:35→16:50)
[2018-10-17] MEDS: VENLAFAXINE HCL 75 MG ER CAPSULE PO SCH (08:06)
[2018-10-17] MEDS: NEOMYCIN/BACITRACIN/POLYMYXIN B 30 GM OINTMENT TP SCH ×2 (08:06→16:51)
[2018-10-17 08:44] VITALS: BP 140/99
[2018-10-17 11:04] LABS: GLUCOMETER DEV NAME(LOC) BV2S.; GLUCOSE,POINT OF CARE 117 MG/DL (70-110)
[2018-10-17 16:27] VITALS: BP 140/92
[2018-10-17] MEDS: INSULIN LISPRO 100 UNITS/ML SQ PRN (16:44)
[2018-10-17 16:55] LABS: GLUCOMETER DEV NAME(LOC) BV2S.; GLUCOSE,POINT OF CARE 205 MG/DL (70-110)
[2018-10-17] MEDS: INSULIN GLARGINE,HUM.REC.ANLOG 100 UNITS/ML SQ SCH (20:53)
[2018-10-17] MEDS: QUEtiapine FUMARATE 200 MG TABLET PO SCH (20:53)
[2018-10-17 21:40] LABS: GLUCOMETER DEV NAME(LOC) BV2S.; GLUCOSE,POINT OF CARE 135 MG/DL (70-110)
[2018-10-18 00:33] VITALS: BP 114/76
[2018-10-18] MEDS: PANTOPRAZOLE SODIUM 40 MG DR TABLET PO SCH (06:22)
[2018-10-18 06:30] LABS: GLUCOMETER DEV NAME(LOC) BV2S.; GLUCOSE,POINT OF CARE 116 MG/DL (70-110)
[2018-10-18] MEDS: MetFORMIN HCL 500 MG TABLET PO SCH (06:36)
[2018-10-18] MEDS: VENLAFAXINE HCL 75 MG ER CAPSULE PO SCH (08:15)
[2018-10-18] MEDS: LORazepam 2 MG TABLET PO PRN (08:15)
[2018-10-18] MEDS: NEOMYCIN/BACITRACIN/POLYMYXIN B 30 GM OINTMENT TP SCH (08:15)
[2018-10-18 08:43] VITALS: BP 109/66
[2018-10-18] MEDS ORDERED: INSU100V SQ (10:29)
== END 2018-10-18 11:20 | disposition home or self-care (01) | DRG 750 ==
LOC: EMS 19:18 → B2S 10-13 01:58
DX: F25.1 Schizoaffective disorder, depressive type (principal); R45.851 Suicidal ideations; E11.9 Type 2 diabetes mellitus without complications; Z59.0 Homelessness; I10 Essential (primary) hypertension; K21.9 Gastro-esophageal reflux disease without esophagitis; G47.00 Insomnia, unspecified; F32.9 Major depressive disorder, single episode, unspecified; F17.200 Nicotine dependence, unspecified, uncomplicated; E78.5 Hyperlipidemia, unspecified; F19.10 Other psychoactive substance abuse, uncomplicated; Z72.89 Other problems related to lifestyle
CPT/HCPCS: 83036; 84443; 87081; G0480; J1815

== ENCOUNTER 2018-11-19 17:43 | Inpatient (IN) | payer MEDICAID ==
[~2018-11-19] VITALS: Ht 180.3 cm; Wt 99.8 kg
[~2018-11-19 17:43] MED LIST changes: +INSU100V SQ
[2018-11-19 18:00] LABS: GLUCOSE,POINT OF CARE 420 MG/DL (70-110)
[2018-11-19] MEDS ORDERED: HALOPERIDOL 5 MG TABLET PO ONE (18:00)
[2018-11-19] MEDS ORDERED: SODIUM CHLORIDE 0.9% 1,000 ML IV ONE (18:00)
[2018-11-19] MEDS ORDERED: INSULIN REGULAR, HUMAN 100 UNITS/ML IVP ONE (18:00)
[2018-11-19] MEDS ORDERED: HYDROGEN PEROXIDE 118 ML SOLUTION ONE (18:34)
[2018-11-19 18:37] LABS: BASOPHILS % (AUTO) 0.6 % (0.0-2.0); EOSINOPHILS % (AUTO) 1.8 % (1.0-6.0); HEMATOCRIT 42.3 % (41-53); HEMOGLOBIN 13.6 g/dL (13.5-17.5); LYMPHOCYTES # (AUTO) 2.4 K/uL (1.0-4.8); LYMPHOCYTES % (AUTO) 36.6 % (22.0-44.0); MEAN CORPUSCULAR HEMOGLOBIN 27.4 pg (26.0-34.0); MEAN CORPUSCULAR HGB CONC 32.1 G/dL (31.0-37.0); MEAN CORPUSCULAR VOLUME 86 fL (80-100); MONOCYTES # (AUTO) 0.5 K/uL (0.1-1.0); NEUTROPHILS # (AUTO) 3.5 K/uL (1.8-7.7); PLATELET COUNT (AUTO) 590 K/uL (150-450); RED BLOOD CELL COUNT(AUTO) 4.95 MIL/uL (4.50-5.90); RED CELL DISTRIBUTION WIDTH 16.8 % (11.5-14.5)
[2018-11-19 18:57] LABS: ALBUMIN 3.6 g/dL (3.4-5.0); BILIRUBIN,TOTAL 0.3 mg/dL (0.1-1.0); CALCIUM, TOTAL 9.2 mg/dL (8.8-10.5); CREATININE 1.31 mg/dL (0.60-1.30); POTASSIUM 3.9 mmol/L (3.5-5.1); TOTAL PROTEIN, SERUM 7.3 g/dL (6.4-8.2)
[2018-11-19 19:15] LABS: GLUCOSE,POINT OF CARE 292 MG/DL (70-110)
[2018-11-19 21:55] LABS: GLUCOSE,POINT OF CARE 252 MG/DL (70-110)
[2018-11-20] MEDS ORDERED: RisperiDONE 1 MG TABLET PO ONE (01:30)
[2018-11-20] MEDS ORDERED: LORazepam 2 MG TABLET PO ONE (01:30)
[2018-11-20 01:45] LABS: GLUCOSE,POINT OF CARE 327 MG/DL (70-110)
[2018-11-20] MEDS ORDERED: INSULIN REGULAR, HUMAN 100 UNITS/ML SQ ONE ×2 (01:45)
[2018-11-20] MEDS ORDERED: HALOPERIDOL 5 MG TABLET PO PRN (02:00)
[2018-11-20] MEDS ORDERED: ZOLPIDEM TARTRATE 10 MG TABLET PO PRN (02:00)
[2018-11-20 03:25] LABS: GLUCOSE,POINT OF CARE 271 MG/DL (70-110)
[2018-11-20] MEDS ORDERED: PETROLATUM,WHITE 28 GM JELLY TP PRN (06:00)
[2018-11-20] MEDS ORDERED: LOPERAMIDE HCL 2 MG CAPSULE PO PRN (06:00)
[2018-11-20] MEDS ORDERED: ONDANSETRON HCL 4 MG TABLET PO PRN (06:00)
[2018-11-20] MEDS ORDERED: GuaiFENesin/D-METHORPHAN [SUGAR-FREE] 200-20MG/10 ML SYRUP UDCUP PO PRN (06:00)
[2018-11-20] MEDS ORDERED: MAGNESIUM HYDROXIDE SUSPENSION 30 ML UDCUP PO PRN (06:00)
[2018-11-20] MEDS ORDERED: ALBUTEROL SULFATE HFA 90 MCG/PUFF 8 GM INHALER IH PRN (06:00)
[2018-11-20] MEDS ORDERED: MAG HYDROX/AL HYDROX/SIMETH ES 30 ML SUSPENSION UDCUP PO PRN (06:00)
[2018-11-20] MEDS ORDERED: DOCUSATE SODIUM 100 MG CAPSULE PO PRN (06:00)
[2018-11-20] MEDS ORDERED: CloNIDine HCL 0.1 MG TABLET PO PRN (06:00)
[2018-11-20] MEDS ORDERED: IBUPROFEN 400 MG TABLET PO PRN (06:00)
[2018-11-20] MEDS ORDERED: NICOTINE 14 MG/24 HOUR PATCH TD PRN (06:00)
[2018-11-20] MEDS ORDERED: ACETAMINOPHEN 325 MG TABLET PO PRN (06:00)
[2018-11-20 11:43] VITALS: BP 135/94
[2018-11-20] MEDS ORDERED: GLUCAGON,HUMAN RECOMBINANT 1 MG VIAL IM PRN (11:45)
[2018-11-20] MEDS ORDERED: INSULIN LISPRO 100 UNITS/ML SQ ONE ×2 (12:15→12:45)
[2018-11-20] MEDS ORDERED: NICOTINE POLACRILEX 2 MG LOZENGE PO PRN (12:45)
[2018-11-20] MEDS ORDERED: PNEUMOCOCCAL VACCINE POLYVALENT 0.5 ML VIAL [PPSV23] IM ONE (12:45)
[2018-11-20 16:22] VITALS: BP 102/65
[2018-11-20] MEDS: LORazepam 2 MG TABLET PO PRN (17:11)
[2018-11-20 20:04] LABS: GLUCOMETER DEV NAME(LOC) BV2S.; GLUCOSE,POINT OF CARE 79 MG/DL (70-110)
[2018-11-20 20:04] LABS: GLUCOMETER DEV NAME(LOC) BV2S.; GLUCOSE,POINT OF CARE 328 MG/DL (70-110)
[2018-11-20] MEDS: INSULIN GLARGINE,HUM.REC.ANLOG 100 UNITS/ML SQ SCH (21:03)
[2018-11-20] MEDS: INSULIN LISPRO 100 UNITS/ML SQ PRN (21:04)
[2018-11-21 02:29] VITALS: BP 139/78
[2018-11-21] MEDS: PANTOPRAZOLE SODIUM 40 MG DR TABLET PO SCH (06:51)
[2018-11-21] MEDS: INSULIN LISPRO 100 UNITS/ML SQ PRN ×4 (06:56→20:33)
[2018-11-21 07:06] LABS: GLUCOMETER DEV NAME(LOC) BV2S.; GLUCOSE,POINT OF CARE 187 MG/DL (70-110)
[2018-11-21 08:02] LABS: HEMOGLOBIN A1C 9.3 % (4.5-6.2)
[2018-11-21 08:13] LABS: CHOL/HDL RATIO 3.5 (4.2-7.3)
[2018-11-21 08:19] VITALS: BP 124/78
[2018-11-21] MEDS: INSULIN GLARGINE,HUM.REC.ANLOG 100 UNITS/ML SQ SCH ×2 (09:02→17:02)
[2018-11-21] MEDS: LORazepam 2 MG TABLET PO PRN ×2 (11:44→16:57)
[2018-11-21 14:26] LABS: GLUCOMETER DEV NAME(LOC) BV2S.; GLUCOSE,POINT OF CARE 141 MG/DL (70-110)
[2018-11-21 16:20] VITALS: BP 121/82
[2018-11-21 20:05] LABS: GLUCOMETER DEV NAME(LOC) BV2S.; GLUCOSE,POINT OF CARE 203 MG/DL (70-110)
[2018-11-21] MEDS: QUEtiapine FUMARATE 200 MG TABLET PO SCH (20:30)
[2018-11-21 21:05] LABS: GLUCOMETER DEV NAME(LOC) BV2S.; GLUCOSE,POINT OF CARE 242 MG/DL (70-110)
[2018-11-22 05:34] VITALS: BP 136/94
[2018-11-22] MEDS: INSULIN LISPRO 100 UNITS/ML SQ PRN ×3 (06:13→20:54)
[2018-11-22 06:15] LABS: GLUCOMETER DEV NAME(LOC) BV2S.; GLUCOSE,POINT OF CARE 181 MG/DL (70-110)
[2018-11-22] MEDS: PANTOPRAZOLE SODIUM 40 MG DR TABLET PO SCH (06:17)
[2018-11-22 08:45] VITALS: BP 139/90
[2018-11-22] MEDS: VENLAFAXINE HCL 75 MG ER CAPSULE PO SCH (09:21)
[2018-11-22] MEDS: INSULIN GLARGINE,HUM.REC.ANLOG 100 UNITS/ML SQ SCH ×2 (10:00→16:57)
[2018-11-22 10:05] LABS: GLUCOMETER DEV NAME(LOC) BV2S.; GLUCOSE,POINT OF CARE 239 MG/DL (70-110)
[2018-11-22 11:35] LABS: GLUCOMETER DEV NAME(LOC) BV2S.; GLUCOSE,POINT OF CARE 209 MG/DL (70-110)
[2018-11-22] MEDS: LORazepam 2 MG TABLET PO PRN (13:07)
[2018-11-22 16:04] VITALS: BP 120/79
[2018-11-22 16:46] LABS: GLUCOMETER DEV NAME(LOC) BV2S.; GLUCOSE,POINT OF CARE 272 MG/DL (70-110)
[2018-11-22] MEDS: QUEtiapine FUMARATE 200 MG TABLET PO SCH (20:28)
[2018-11-22 20:54] LABS: GLUCOMETER DEV NAME(LOC) BV2S.; GLUCOSE,POINT OF CARE 146 MG/DL (70-110)
[2018-11-23] MEDS: PANTOPRAZOLE SODIUM 40 MG DR TABLET PO SCH (06:03)
[2018-11-23 06:20] VITALS: BP 120/84
[2018-11-23 06:21] LABS: GLUCOMETER DEV NAME(LOC) BV2S.; GLUCOSE,POINT OF CARE 113 MG/DL (70-110)
[2018-11-23 08:23] VITALS: BP 135/90
[2018-11-23] MEDS: VENLAFAXINE HCL 75 MG ER CAPSULE PO SCH (09:13)
[2018-11-23 09:31] LABS: GLUCOMETER DEV NAME(LOC) BV2S.; GLUCOSE,POINT OF CARE 234 MG/DL (70-110)
[2018-11-23] MEDS: INSULIN GLARGINE,HUM.REC.ANLOG 100 UNITS/ML SQ SCH ×2 (09:41→16:56)
[2018-11-23] MEDS: LORazepam 2 MG TABLET PO PRN ×2 (09:47→18:03)
[2018-11-23 11:26] LABS: GLUCOMETER DEV NAME(LOC) BV2S.; GLUCOSE,POINT OF CARE 230 MG/DL (70-110)
[2018-11-23] MEDS: INSULIN LISPRO 100 UNITS/ML SQ PRN ×3 (11:28→21:30)
[2018-11-23 16:31] VITALS: BP 132/88
[2018-11-23] MEDS: QUEtiapine FUMARATE 200 MG TABLET PO SCH (20:13)
[2018-11-23 21:00] LABS: GLUCOMETER DEV NAME(LOC) BV2S.; GLUCOSE,POINT OF CARE 218 MG/DL (70-110)
[2018-11-23 21:00] LABS: GLUCOMETER DEV NAME(LOC) BV2S.; GLUCOSE,POINT OF CARE 201 MG/DL (70-110)
[2018-11-24 00:07] VITALS: BP 128/80
[2018-11-24] MEDS: PANTOPRAZOLE SODIUM 40 MG DR TABLET PO SCH (06:04)
[2018-11-24 06:21] LABS: GLUCOMETER DEV NAME(LOC) BV2S.; GLUCOSE,POINT OF CARE 104 MG/DL (70-110)
[2018-11-24 08:32] VITALS: BP 105/63
[2018-11-24] MEDS: VENLAFAXINE HCL 75 MG ER CAPSULE PO SCH (09:13)
[2018-11-24] MEDS: LORazepam 2 MG TABLET PO PRN ×2 (09:14→17:26)
[2018-11-24] MEDS: INSULIN GLARGINE,HUM.REC.ANLOG 100 UNITS/ML SQ SCH ×2 (10:01→16:50)
[2018-11-24 10:04] VITALS: BP 102/76
[2018-11-24 10:10] LABS: GLUCOMETER DEV NAME(LOC) BV2S.; GLUCOSE,POINT OF CARE 267 MG/DL (70-110)
[2018-11-24] MEDS: INSULIN LISPRO 100 UNITS/ML SQ PRN ×3 (11:19→20:32)
[2018-11-24 11:20] LABS: GLUCOMETER DEV NAME(LOC) BV2S.; GLUCOSE,POINT OF CARE 323 MG/DL (70-110)
[2018-11-24 16:21] VITALS: BP 103/73
[2018-11-24 17:06] LABS: GLUCOMETER DEV NAME(LOC) BV2S.; GLUCOSE,POINT OF CARE 210 MG/DL (70-110)
[2018-11-24] MEDS: QUEtiapine FUMARATE 200 MG TABLET PO SCH (20:31)
[2018-11-24 21:46] LABS: GLUCOMETER DEV NAME(LOC) BV2S.; GLUCOSE,POINT OF CARE 319 MG/DL (70-110)
[2018-11-25 00:05] VITALS: BP 101/53
[2018-11-25] MEDS: LORazepam 2 MG TABLET PO PRN ×3 (01:07→16:45)
[2018-11-25] MEDS: PANTOPRAZOLE SODIUM 40 MG DR TABLET PO SCH (06:09)
[2018-11-25 06:16] LABS: GLUCOMETER DEV NAME(LOC) BV2S.; GLUCOSE,POINT OF CARE 84 MG/DL (70-110)
[2018-11-25] MEDS: VENLAFAXINE HCL 75 MG ER CAPSULE PO SCH (08:22)
[2018-11-25] MEDS: INSULIN GLARGINE,HUM.REC.ANLOG 100 UNITS/ML SQ SCH ×2 (08:26→17:07)
[2018-11-25 08:39] VITALS: BP 121/81
[2018-11-25 11:10] LABS: GLUCOMETER DEV NAME(LOC) BV2S.; GLUCOSE,POINT OF CARE 304 MG/DL (70-110)
[2018-11-25] MEDS: INSULIN LISPRO 100 UNITS/ML SQ PRN ×2 (11:10→17:08)
[2018-11-25 11:20] LABS: GLUCOMETER DEV NAME(LOC) BV2S.; GLUCOSE,POINT OF CARE 205 MG/DL (70-110)
[2018-11-25 16:08] VITALS: BP 116/68
[2018-11-25 17:11] LABS: GLUCOMETER DEV NAME(LOC) BV2S.; GLUCOSE,POINT OF CARE 230 MG/DL (70-110)
[2018-11-25] MEDS: QUEtiapine FUMARATE 200 MG TABLET PO SCH (20:25)
[2018-11-25 21:05] LABS: GLUCOMETER DEV NAME(LOC) BV2S.; GLUCOSE,POINT OF CARE 209 MG/DL (70-110)
[2018-11-26 00:27] VITALS: BP 126/82
[2018-11-26] MEDS: PANTOPRAZOLE SODIUM 40 MG DR TABLET PO SCH (06:40)
[2018-11-26 07:01] LABS: GLUCOMETER DEV NAME(LOC) BV2S.; GLUCOSE,POINT OF CARE 131 MG/DL (70-110)
[2018-11-26] MEDS: LORazepam 2 MG TABLET PO PRN ×3 (07:23→19:33)
[2018-11-26] MEDS: VENLAFAXINE HCL 75 MG ER CAPSULE PO SCH (08:02)
[2018-11-26 08:15] LABS: GLUCOMETER DEV NAME(LOC) BV2S.; GLUCOSE,POINT OF CARE 294 MG/DL (70-110)
[2018-11-26] MEDS: INSULIN GLARGINE,HUM.REC.ANLOG 100 UNITS/ML SQ SCH ×2 (08:20→16:46)
[2018-11-26] MEDS: INSULIN LISPRO 100 UNITS/ML SQ PRN ×4 (08:20→20:17)
[2018-11-26 08:53] VITALS: BP 136/82
[2018-11-26 11:30] LABS: GLUCOMETER DEV NAME(LOC) BV2S.; GLUCOSE,POINT OF CARE 223 MG/DL (70-110)
[2018-11-26 16:26] VITALS: BP 134/60
[2018-11-26] MEDS: QUEtiapine FUMARATE 200 MG TABLET PO SCH (20:07)
[2018-11-26 20:31] LABS: GLUCOMETER DEV NAME(LOC) BV2S.; GLUCOSE,POINT OF CARE 337 MG/DL (70-110)
[2018-11-27 03:59] VITALS: BP 121/68
[2018-11-27] MEDS: INSULIN LISPRO 100 UNITS/ML SQ PRN ×4 (06:21→20:54)
[2018-11-27 06:31] LABS: GLUCOMETER DEV NAME(LOC) BV2S.; GLUCOSE,POINT OF CARE 160 MG/DL (70-110)
[2018-11-27] MEDS: PANTOPRAZOLE SODIUM 40 MG DR TABLET PO SCH (06:53)
[2018-11-27] MEDS: VENLAFAXINE HCL 75 MG ER CAPSULE PO SCH (08:33)
[2018-11-27] MEDS: LORazepam 2 MG TABLET PO PRN ×3 (08:34→17:29)
[2018-11-27 08:47] VITALS: BP 135/80
[2018-11-27 09:10] LABS: GLUCOMETER DEV NAME(LOC) BV2S.; GLUCOSE,POINT OF CARE 318 MG/DL (70-110)
[2018-11-27] MEDS: INSULIN GLARGINE,HUM.REC.ANLOG 100 UNITS/ML SQ SCH ×2 (09:10→16:42)
[2018-11-27 11:15] LABS: GLUCOMETER DEV NAME(LOC) BV2S.; GLUCOSE,POINT OF CARE 226 MG/DL (70-110)
[2018-11-27 16:13] VITALS: BP 136/73
[2018-11-27 16:30] LABS: GLUCOMETER DEV NAME(LOC) BV2S.; GLUCOSE,POINT OF CARE 271 MG/DL (70-110)
[2018-11-27] MEDS: QUEtiapine FUMARATE 200 MG TABLET PO SCH (20:12)
[2018-11-27 20:20] LABS: GLUCOMETER DEV NAME(LOC) BV2S.; GLUCOSE,POINT OF CARE 373 MG/DL (70-110)
[2018-11-28 00:24] VITALS: BP 118/77
[2018-11-28 06:21] LABS: GLUCOMETER DEV NAME(LOC) BV2S.; GLUCOSE,POINT OF CARE 138 MG/DL (70-110)
[2018-11-28] MEDS: PANTOPRAZOLE SODIUM 40 MG DR TABLET PO SCH (06:55)
[2018-11-28 08:25] LABS: ANION GAP 9 mmol/L (8-16); CALCIUM, TOTAL 9.4 mg/dL (8.8-10.5); CARBON DIOXIDE 26 mmol/L (22-29); CHLORIDE 99 mmol/L (98-107); CREATININE 0.97 mg/dL (0.60-1.30); GLOMERULAR FILTR. RATE CALC > 60 mL/min (>60); GLUCOSE,RANDOM 134 mg/dL (70-110); SODIUM SERUM 134 mmol/L (136-145); UREA NITROGEN, BLOOD 15 mg/dL (7-18)
[2018-11-28] MEDS: LORazepam 2 MG TABLET PO PRN (08:29)
[2018-11-28] MEDS: VENLAFAXINE HCL 75 MG ER CAPSULE PO SCH (08:29)
[2018-11-28 08:41] LABS: GLUCOMETER DEV NAME(LOC) BV2S.; GLUCOSE,POINT OF CARE 236 MG/DL (70-110)
[2018-11-28 09:08] VITALS: BP 129/85
[2018-11-28] MEDS: INSULIN GLARGINE,HUM.REC.ANLOG 100 UNITS/ML SQ SCH (10:00)
[2018-11-28] MEDS ORDERED: QUET200T PO (10:37)
[2018-11-28] MEDS ORDERED: VENL-67 PO (10:42)
== END 2018-11-28 11:30 | disposition home or self-care (01) | DRG 750 ==
LOC: EMS 17:44 → B2S 11-20 11:39
PROVIDERS: ADMIT Psychiatry & Neurology Psychiatry; ATTEND Psychiatry & Neurology Psychiatry
DX: F25.1 Schizoaffective disorder, depressive type (principal); N17.9 Acute kidney failure, unspecified; E11.65 Type 2 diabetes mellitus with hyperglycemia; E87.1 Hypo-osmolality and hyponatremia; R45.851 Suicidal ideations; F10.129 Alcohol abuse with intoxication, unspecified; F17.200 Nicotine dependence, unspecified, uncomplicated; F19.90 Other psychoactive substance use, unspecified, uncomplicated; F41.9 Anxiety disorder, unspecified; I10 Essential (primary) hypertension; Z71.6 Tobacco abuse counseling; Z59.0 Homelessness; Z91.19 Patient's noncompliance with other medical treatment and regimen; Z91.5 Personal history of self-harm; Z79.899 Other long term (current) drug therapy
CPT/HCPCS: 83036; 87081; 96361; 96374; G0480; J1815; J7030

== ENCOUNTER 2018-12-08 17:36 | Inpatient (IN) | payer MEDICAID ==
[~2018-12-08] VITALS: Ht 180.3 cm; Wt 117.7 kg
[~2018-12-08 17:36] MED LIST changes: -INSU100V SQ; -METF-960 PO; +VENL-67 PO; -VENL75CA55 PO
[2018-12-08 18:01] LABS: GLUCOSE,POINT OF CARE 366 MG/DL (70-110)
[2018-12-08 18:10] LABS: BASOPHILS % (AUTO) 1.1 % (0.0-2.0); EOSINOPHILS % (AUTO) 0.9 % (1.0-6.0); HEMATOCRIT 39.9 % (41-53); HEMOGLOBIN 12.8 g/dL (13.5-17.5); LYMPHOCYTES # (AUTO) 2.9 K/uL (1.0-4.8); LYMPHOCYTES % (AUTO) 38.5 % (22.0-44.0); MEAN CORPUSCULAR HEMOGLOBIN 27.6 pg (26.0-34.0); MEAN CORPUSCULAR VOLUME 86 fL (80-100); MONOCYTES # (AUTO) 0.6 K/uL (0.1-1.0); MONOCYTES % (AUTO) 7.6 % (2.0-9.0); NEUTROPHILS # (AUTO) 3.8 K/uL (1.8-7.7); NEUTROPHILS % (AUTO) 51.9 % (40.0-70.0); PLATELET COUNT (AUTO) 639 K/uL (150-450); RED BLOOD CELL COUNT(AUTO) 4.63 MIL/uL (4.50-5.90); RED CELL DISTRIBUTION WIDTH 18.2 % (11.5-14.5)
[2018-12-08 18:29] LABS: ALANINE AMINOTRANSFERASE 33 U/L (12-78); ALBUMIN 3.7 g/dL (3.4-5.0); ALKALINE PHOSPHATASE 199 U/L (46-116); ANION GAP 16 mmol/L (8-16); ASPARTATE AMINOTRANSFERASE 36 U/L (15-37); BILIRUBIN,TOTAL 0.4 mg/dL (0.1-1.0); CALCIUM, TOTAL 8.2 mg/dL (8.8-10.5); CARBON DIOXIDE 20 mmol/L (22-29); CHLORIDE 100 mmol/L (98-107); CREATININE 1.04 mg/dL (0.60-1.30); GLOMERULAR FILTR. RATE CALC > 60 mL/min (>60); GLUCOSE,RANDOM 393 mg/dL (70-110); POTASSIUM 3.3 mmol/L (3.5-5.1); SODIUM SERUM 136 mmol/L (136-145); TOTAL PROTEIN, SERUM 7.2 g/dL (6.4-8.2)
[2018-12-08] MEDS ORDERED: SODIUM CHLORIDE 0.9% 1,000 ML IV ONE ×2 (19:00→21:00)
[2018-12-08] MEDS ORDERED: INSULIN REGULAR, HUMAN 100 UNITS/ML IVP ONE (19:00)
[2018-12-08 19:06] LABS: UREA NITROGEN, BLOOD 11 mg/dL (7-18)
[2018-12-08 19:22] LABS: AMPHET/METH SCREEN,URINE POSITIVE (NEGATIVE); BARBITURATE SCREEN, URINE NEGATIVE (NEGATIVE); BENZODIAZEPINES SCREEN,URINE NEGATIVE (NEGATIVE); CANNABINOID SCREEN,URINE NEGATIVE (NEGATIVE); COCAINE SCREEN,URINE NEGATIVE (NEGATIVE); METHADONE SCREEN, URINE NEGATIVE (NEGATIVE); OPIATE SCREEN,URINE NEGATIVE (NEGATIVE)
[2018-12-08 19:31] LABS: PHENCYCLIDINE SCREEN,URINE NEGATIVE (NEGATIVE)
[2018-12-08 20:06] LABS: GLUCOSE,POINT OF CARE 379 MG/DL (70-110)
[2018-12-08] MEDS ORDERED: LORazepam 2 MG TABLET PO PRN (20:30)
[2018-12-08] MEDS ORDERED: HALOPERIDOL 5 MG TABLET PO PRN (20:30)
[2018-12-08] MEDS ORDERED: ZOLPIDEM TARTRATE 10 MG TABLET PO PRN (20:30)
[2018-12-08] MEDS ORDERED: POTASSIUM CHLORIDE 20 MEQ ER TABLET PO ONE (21:00)
[2018-12-08 21:37] LABS: GLUCOSE,POINT OF CARE 283 MG/DL (70-110)
[2018-12-08 23:15] LABS: GLUCOSE,POINT OF CARE 241 MG/DL (70-110)
[2018-12-09] VITALS (11 sets, daily range): BP systolic 97–162; BP diastolic 59–98
[2018-12-09] MEDS ORDERED: PNEUMOCOCCAL VACCINE POLYVALENT 0.5 ML VIAL [PPSV23] IM ONE (05:00)
[2018-12-09] MEDS ORDERED: ALBUTEROL SULFATE HFA 90 MCG/PUFF 8 GM INHALER IH PRN (06:45)
[2018-12-09] MEDS ORDERED: DOCUSATE SODIUM 100 MG CAPSULE PO PRN (06:45)
[2018-12-09] MEDS ORDERED: IBUPROFEN 400 MG TABLET PO PRN (06:45)
[2018-12-09] MEDS ORDERED: LOPERAMIDE HCL 2 MG CAPSULE PO PRN ×2 (06:45→11:30)
[2018-12-09] MEDS ORDERED: CloNIDine HCL 0.1 MG TABLET PO PRN (06:45)
[2018-12-09] MEDS ORDERED: PETROLATUM,WHITE 28 GM JELLY TP PRN (06:45)
[2018-12-09] MEDS ORDERED: ONDANSETRON HCL 4 MG TABLET PO PRN (06:45)
[2018-12-09] MEDS ORDERED: MAGNESIUM HYDROXIDE SUSPENSION 30 ML UDCUP PO PRN (06:45)
[2018-12-09] MEDS ORDERED: ACETAMINOPHEN 325 MG TABLET PO PRN (06:45)
[2018-12-09] MEDS ORDERED: NICOTINE 14 MG/24 HOUR PATCH TD PRN (06:45)
[2018-12-09] MEDS ORDERED: MAG HYDROX/AL HYDROX/SIMETH ES 30 ML SUSPENSION UDCUP PO PRN (06:45)
[2018-12-09] MEDS ORDERED: GuaiFENesin/D-METHORPHAN [SUGAR-FREE] 200-20MG/10 ML SYRUP UDCUP PO PRN ×2 (06:45→11:15)
[2018-12-09 07:28] LABS: CHOL/HDL RATIO 2.9 (4.2-7.3)
[2018-12-09] MEDS ORDERED: DEXTROSE 50%-WATER 25 GM/50 ML SYRINGE IVP PRN (10:15)
[2018-12-09] MEDS ORDERED: HydrOXYzine PAMOATE 50 MG CAPSULE PO PRN (11:15)
[2018-12-09] MEDS ORDERED: QUEtiapine FUMARATE 100 MG TABLET PO PRN (11:15)
[2018-12-09] MEDS: INSULIN LISPRO 100 UNITS/ML SQ PRN ×3 (11:18→22:16)
[2018-12-09 11:26] LABS: GLUCOMETER DEV NAME(LOC) 3E.I; GLUCOSE,POINT OF CARE 225 MG/DL (70-110)
[2018-12-09] MEDS ORDERED: LORazepam 2 MG TABLET PO PRN (11:30)
[2018-12-09] MEDS ORDERED: CYANOCOBALAMIN 1,000 MCG/ML VIAL IM ONE (11:30)
[2018-12-09] MEDS ORDERED: RisperiDONE 0.5 MG TABLET PO PRN (12:00)
[2018-12-09] MEDS ORDERED: THIAMINE HCL 100 MG TABLET PO SCH (17:00)
[2018-12-09] MEDS: THIAMINE HCL 100 MG TABLET PO SCH (17:40)
[2018-12-09 20:31] LABS: GLUCOMETER DEV NAME(LOC) 3E.I; GLUCOSE,POINT OF CARE 346 MG/DL (70-110)
[2018-12-09] MEDS ORDERED: QUEtiapine FUMARATE 200 MG TABLET PO SCH (21:00)
[2018-12-09] MEDS: RisperiDONE 4 MG TABLET PO SCH (21:20)
[2018-12-09] MEDS: INSULIN GLARGINE,HUM.REC.ANLOG 100 UNITS/ML SQ SCH (22:21)
[2018-12-09 22:30] LABS: GLUCOMETER DEV NAME(LOC) 3E.I; GLUCOSE,POINT OF CARE 326 MG/DL (70-110)
[2018-12-10 03:30] VITALS: BP 125/79
[2018-12-10 05:41] LABS: GLUCOMETER DEV NAME(LOC) 3E.I; GLUCOSE,POINT OF CARE 126 MG/DL (70-110)
[2018-12-10] MEDS: PANTOPRAZOLE SODIUM 40 MG DR TABLET PO SCH (06:39)
[2018-12-10] MEDS: INSULIN LISPRO 100 UNITS/ML SQ PRN ×4 (06:39→21:09)
[2018-12-10] MEDS ORDERED: LORazepam 2 MG TABLET PO PRN (07:00)
[2018-12-10 07:14] VITALS: BP 143/83
[2018-12-10 08:00] VITALS: BP 141/95
[2018-12-10] MEDS: MULTIVITAMINS WITH MINERALS, THERAPEUTIC TABLET PO SCH (08:29)
[2018-12-10] MEDS: LORazepam 2 MG TABLET PO SCH ×4 (08:29→20:59)
[2018-12-10] MEDS: THIAMINE HCL 100 MG TABLET PO SCH ×2 (08:29→17:17)
[2018-12-10] MEDS: FOLIC ACID 1 MG TABLET PO SCH (08:29)
[2018-12-10] MEDS ORDERED: VENLAFAXINE HCL 75 MG ER CAPSULE PO SCH (09:00)
[2018-12-10 11:30] VITALS: BP 149/81
[2018-12-10 11:47] LABS: GLUCOMETER DEV NAME(LOC) 3E.I; GLUCOSE,POINT OF CARE 261 MG/DL (70-110)
[2018-12-10 18:26] LABS: GLUCOMETER DEV NAME(LOC) 3E.I; GLUCOSE,POINT OF CARE 188 MG/DL (70-110)
[2018-12-10 19:47] VITALS: BP 118/75
[2018-12-10 19:52] VITALS: BP 122/83
[2018-12-10] MEDS: RisperiDONE 4 MG TABLET PO SCH (20:59)
[2018-12-10] MEDS: INSULIN GLARGINE,HUM.REC.ANLOG 100 UNITS/ML SQ SCH (21:08)
[2018-12-10 21:23] LABS: GLUCOMETER DEV NAME(LOC) 3E.I; GLUCOSE,POINT OF CARE 302 MG/DL (70-110)
[2018-12-11 03:35] VITALS: BP 116/74
[2018-12-11 03:40] VITALS: BP 116/74
[2018-12-11 05:49] LABS: GLUCOMETER DEV NAME(LOC) 3E.I; GLUCOSE,POINT OF CARE 100 MG/DL (70-110)
[2018-12-11] MEDS: PANTOPRAZOLE SODIUM 40 MG DR TABLET PO SCH (06:56)
[2018-12-11] MEDS: INSULIN LISPRO 100 UNITS/ML SQ PRN ×4 (07:06→20:51)
[2018-12-11 08:00] VITALS: BP 143/88
[2018-12-11] MEDS: FOLIC ACID 1 MG TABLET PO SCH (08:43)
[2018-12-11] MEDS: THIAMINE HCL 100 MG TABLET PO SCH ×2 (08:43→16:04)
[2018-12-11] MEDS: LORazepam 2 MG TABLET PO SCH ×4 (08:43→20:33)
[2018-12-11] MEDS: MULTIVITAMINS WITH MINERALS, THERAPEUTIC TABLET PO SCH (08:43)
[2018-12-11 11:11] LABS: GLUCOMETER DEV NAME(LOC) 3E.I; GLUCOSE,POINT OF CARE 149 MG/DL (70-110)
[2018-12-11 16:20] LABS: GLUCOMETER DEV NAME(LOC) 3E.I; GLUCOSE,POINT OF CARE 177 MG/DL (70-110)
[2018-12-11 19:00] VITALS: BP 127/85
[2018-12-11] MEDS: RisperiDONE 4 MG TABLET PO SCH (20:33)
[2018-12-11] MEDS: INSULIN GLARGINE,HUM.REC.ANLOG 100 UNITS/ML SQ SCH (20:52)
[2018-12-11 21:07] LABS: GLUCOMETER DEV NAME(LOC) 3E.I; GLUCOSE,POINT OF CARE 243 MG/DL (70-110)
[2018-12-12 06:21] VITALS: BP 124/78
[2018-12-12] MEDS: PANTOPRAZOLE SODIUM 40 MG DR TABLET PO SCH (06:53)
[2018-12-12] MEDS ORDERED: LORazepam 1 MG TABLET PO PRN (07:00)
[2018-12-12] MEDS ORDERED: LORazepam 1 MG TABLET PO SCH (09:00)
[2018-12-12 09:34] VITALS: BP_SYST 125; BP_SYST 145; BP_DIAS 105; BP_DIAS 80
[2018-12-12] MEDS: THIAMINE HCL 100 MG TABLET PO SCH (09:35)
[2018-12-12] MEDS: FOLIC ACID 1 MG TABLET PO SCH (09:35)
[2018-12-12] MEDS: MULTIVITAMINS WITH MINERALS, THERAPEUTIC TABLET PO SCH (09:35)
[2018-12-12] MEDS ORDERED: RISP4 PO (11:45)
[2018-12-12 16:58] LABS: GLUCOMETER DEV NAME(LOC) 3E.I; GLUCOSE,POINT OF CARE 120 MG/DL (70-110)
[2018-12-13] MEDS ORDERED: LORazepam 1 MG TABLET PO PRN (07:00)
== END 2018-12-12 13:00 | disposition home or self-care (01) | DRG 750 ==
LOC: EMS 17:38 → 3EI 23:30
PROVIDERS: ADMIT Psychiatry & Neurology Psychiatry; ATTEND Psychiatry & Neurology Psychiatry
DX: F25.1 Schizoaffective disorder, depressive type (principal); E11.65 Type 2 diabetes mellitus with hyperglycemia; R45.851 Suicidal ideations; D64.9 Anemia, unspecified; E87.6 Hypokalemia; F10.10 Alcohol abuse, uncomplicated; F15.10 Other stimulant abuse, uncomplicated; F17.200 Nicotine dependence, unspecified, uncomplicated; F41.9 Anxiety disorder, unspecified; G47.00 Insomnia, unspecified; I10 Essential (primary) hypertension; K21.9 Gastro-esophageal reflux disease without esophagitis; Z91.19 Patient's noncompliance with other medical treatment and regimen; Z79.899 Other long term (current) drug therapy; Z59.0 Homelessness; Z28.21 Immunization not carried out because of patient refusal
CPT/HCPCS: 87081; G0480; J1815; J3420; J7030

== ENCOUNTER 2019-01-20 20:21 | Inpatient (IN) | payer MEDICAID ==
[~2019-01-20] VITALS: Ht 182.9 cm; Wt 96.6 kg
[~2019-01-20 20:21] MED LIST changes: -QUET200T29 PO; +RISP4 PO; -VENL-67 PO
[2019-01-20] MEDS ORDERED: LISI-661 PO (21:00)
[2019-01-20] MEDS ORDERED: OLAN10TA3 PO (21:00)
[2019-01-20] MEDS ORDERED: METF-960 PO (21:00)
[2019-01-20 21:06] LABS: GLUCOSE,POINT OF CARE 223 MG/DL (70-110)
[2019-01-20 21:12] LABS: AMPHET/METH SCREEN,URINE NEGATIVE (NEGATIVE); BARBITURATE SCREEN, URINE NEGATIVE (NEGATIVE); BENZODIAZEPINES SCREEN,URINE NEGATIVE (NEGATIVE); CANNABINOID SCREEN,URINE NEGATIVE (NEGATIVE); COCAINE SCREEN,URINE NEGATIVE (NEGATIVE); METHADONE SCREEN, URINE NEGATIVE (NEGATIVE); OPIATE SCREEN,URINE NEGATIVE (NEGATIVE)
[2019-01-20 21:13] LABS: PHENCYCLIDINE SCREEN,URINE NEGATIVE (NEGATIVE)
[2019-01-21 00:45] LABS: BASOPHILS % (AUTO) 1.7 % (0.0-2.0); EOSINOPHILS % (AUTO) 0.6 % (1.0-6.0); HEMATOCRIT 41.4 % (41-53); HEMOGLOBIN 13.6 g/dL (13.5-17.5); LYMPHOCYTES # (AUTO) 2.5 K/uL (1.0-4.8); LYMPHOCYTES % (AUTO) 32.4 % (22.0-44.0); MEAN CORPUSCULAR HEMOGLOBIN 28.4 pg (26.0-34.0); MEAN CORPUSCULAR HGB CONC 32.9 G/dL (31.0-37.0); MEAN CORPUSCULAR VOLUME 87 fL (80-100); MONOCYTES # (AUTO) 0.4 K/uL (0.1-1.0); NEUTROPHILS # (AUTO) 4.6 K/uL (1.8-7.7); NEUTROPHILS % (AUTO) 60.3 % (40.0-70.0); PLATELET COUNT (AUTO) 656 K/uL (150-450); RED BLOOD CELL COUNT(AUTO) 4.78 MIL/uL (4.50-5.90); RED CELL DISTRIBUTION WIDTH 17.4 % (11.5-14.5)
[2019-01-21 01:05] LABS: ANION GAP 14 mmol/L (8-16); CALCIUM, TOTAL 9.2 mg/dL (8.8-10.5); CARBON DIOXIDE 22 mmol/L (22-29); CHLORIDE 99 mmol/L (98-107); CREATININE 1.13 mg/dL (0.60-1.30); GLOMERULAR FILTR. RATE CALC > 60 mL/min (>60); GLUCOSE,RANDOM 304 mg/dL (70-110); POTASSIUM 3.9 mmol/L (3.5-5.1); SODIUM SERUM 135 mmol/L (136-145); UREA NITROGEN, BLOOD 13 mg/dL (7-18)
[2019-01-21 01:11] LABS: ALANINE AMINOTRANSFERASE 24 U/L (12-78); ALBUMIN 3.6 g/dL (3.4-5.0); ALKALINE PHOSPHATASE 156 U/L (46-116); ASPARTATE AMINOTRANSFERASE 17 U/L (15-37); BILIRUBIN,TOTAL 0.3 mg/dL (0.1-1.0); TOTAL PROTEIN, SERUM 7.7 g/dL (6.4-8.2)
[2019-01-21 01:55] LABS: GLUCOSE,POINT OF CARE 276 MG/DL (70-110)
[2019-01-21] MEDS ORDERED: MetFORMIN HCL 500 MG TABLET PO ONE (02:15)
[2019-01-21] MEDS ORDERED: HALOPERIDOL 5 MG TABLET PO PRN (02:15)
[2019-01-21] MEDS ORDERED: ZOLPIDEM TARTRATE 10 MG TABLET PO PRN (02:15)
[2019-01-21 04:06] LABS: APPEARANCE,URINE CLEAR (CLEAR); BILIRUBIN,URINE NEGATIVE (NEGATIVE); GLUCOSE, URINE (UA) >=1000 mg/dL (NEGATIVE); KETONES,URINE NEGATIVE (NEGATIVE); LEUKOCYTE ESTERASE ,URINE NEGATIVE (NEGATIVE); NITRATE,URINE NEGATIVE (NEGATIVE); OCCULT BLOOD,URINE NEGATIVE (NEGATIVE); PROTEIN,URINE NEGATIVE (NEGATIVE); UROBILINOGEN,URINE 0.2 mg/dL (<=1.0)
[2019-01-21 04:18] LABS: BACTERIA,URINE Rare /HPF (None Seen); MUCUS,URINE Few LPF (None Seen); RBC,URINE 0-2 /HPF (0-2); WBC,URINE 0-2 /HPF (0-5)
[2019-01-21 04:32] VITALS: BP 139/98
[2019-01-21] MEDS ORDERED: INFLUENZA VIRUS VACCINE QVS 2019-20 (3YR+)/PF 60 MCG/0.5 ML SYRINGE IM ONE (05:45)
[2019-01-21] MEDS ORDERED: PNEUMOCOCCAL VACCINE POLYVALENT 0.5 ML VIAL [PPSV23] IM ONE (05:45)
[2019-01-21 11:47] VITALS: BP 142/104
[2019-01-21] MEDS ORDERED: GuaiFENesin/D-METHORPHAN [SUGAR-FREE] 200-20MG/10 ML SYRUP UDCUP PO PRN (14:30)
[2019-01-21] MEDS ORDERED: CloNIDine HCL 0.1 MG TABLET PO PRN (14:30)
[2019-01-21] MEDS ORDERED: DOCUSATE SODIUM 100 MG CAPSULE PO PRN (14:30)
[2019-01-21] MEDS ORDERED: ONDANSETRON HCL 4 MG TABLET PO PRN (14:30)
[2019-01-21] MEDS ORDERED: IBUPROFEN 400 MG TABLET PO PRN (14:30)
[2019-01-21] MEDS ORDERED: MAG HYDROX/AL HYDROX/SIMETH ES 30 ML SUSPENSION UDCUP PO PRN (14:30)
[2019-01-21] MEDS ORDERED: LOPERAMIDE HCL 2 MG CAPSULE PO PRN (14:30)
[2019-01-21] MEDS ORDERED: ALBUTEROL SULFATE HFA 90 MCG/PUFF 8 GM INHALER IH PRN (14:30)
[2019-01-21] MEDS ORDERED: GLUCAGON,HUMAN RECOMBINANT 1 MG VIAL IM PRN (14:30)
[2019-01-21] MEDS ORDERED: ACETAMINOPHEN 325 MG TABLET PO PRN (14:30)
[2019-01-21] MEDS ORDERED: MAGNESIUM HYDROXIDE SUSPENSION 30 ML UDCUP PO PRN (14:30)
[2019-01-21] MEDS ORDERED: NICOTINE 14 MG/24 HOUR PATCH TD PRN (14:30)
[2019-01-21] MEDS ORDERED: PETROLATUM,WHITE 28 GM JELLY TP PRN (14:30)
[2019-01-21 16:00] VITALS: BP 141/91
[2019-01-21] MEDS: LORazepam 2 MG TABLET PO PRN (16:32)
[2019-01-21 16:46] LABS: GLUCOMETER DEV NAME(LOC) 3EX.; GLUCOSE,POINT OF CARE 316 MG/DL (70-110)
[2019-01-21] MEDS: INSULIN LISPRO 100 UNITS/ML SQ PRN ×2 (17:42→21:52)
[2019-01-21] MEDS: OLANZapine 10 MG TABLET PO SCH (20:17)
[2019-01-21 20:41] LABS: GLUCOMETER DEV NAME(LOC) 3EX.; GLUCOSE,POINT OF CARE 274 MG/DL (70-110)
[2019-01-21] MEDS: INSULIN GLARGINE,HUM.REC.ANLOG 100 UNITS/ML SQ SCH (21:51)
[2019-01-22 06:30] LABS: GLUCOMETER DEV NAME(LOC) 3EX.; GLUCOSE,POINT OF CARE 154 MG/DL (70-110)
[2019-01-22] MEDS: INSULIN LISPRO 100 UNITS/ML SQ PRN ×4 (06:33→20:08)
[2019-01-22] MEDS: PANTOPRAZOLE SODIUM 40 MG DR TABLET PO SCH (06:50)
[2019-01-22 07:35] LABS: CHOL/HDL RATIO 3.4 (4.2-7.3)
[2019-01-22 08:51] VITALS: BP 140/102
[2019-01-22] MEDS: VENLAFAXINE HCL 75 MG ER CAPSULE PO SCH (09:07)
[2019-01-22] MEDS: LISINOPRIL 10 MG TABLET PO SCH (09:07)
[2019-01-22 12:00] LABS: GLUCOMETER DEV NAME(LOC) 3EX.; GLUCOSE,POINT OF CARE 101 MG/DL (70-110)
[2019-01-22] MEDS: LORazepam 2 MG TABLET PO PRN ×2 (15:08→20:04)
[2019-01-22 17:41] LABS: GLUCOMETER DEV NAME(LOC) 3EX.; GLUCOSE,POINT OF CARE 222 MG/DL (70-110)
[2019-01-22 19:00] VITALS: BP 134/88
[2019-01-22] MEDS: OLANZapine 10 MG TABLET PO SCH (20:04)
[2019-01-22] MEDS: INSULIN GLARGINE,HUM.REC.ANLOG 100 UNITS/ML SQ SCH (20:09)
[2019-01-22 20:15] LABS: GLUCOMETER DEV NAME(LOC) 3EX.; GLUCOSE,POINT OF CARE 264 MG/DL (70-110)
[2019-01-23 06:16] LABS: GLUCOMETER DEV NAME(LOC) 3EX.; GLUCOSE,POINT OF CARE 134 MG/DL (70-110)
[2019-01-23] MEDS: PANTOPRAZOLE SODIUM 40 MG DR TABLET PO SCH (06:55)
[2019-01-23 08:41] VITALS: BP 116/79
[2019-01-23] MEDS: VENLAFAXINE HCL 75 MG ER CAPSULE PO SCH (08:43)
[2019-01-23] MEDS: LISINOPRIL 10 MG TABLET PO SCH (08:43)
[2019-01-23] MEDS: LORazepam 2 MG TABLET PO PRN ×2 (08:51→16:27)
[2019-01-23 11:06] LABS: GLUCOMETER DEV NAME(LOC) 3EX.; GLUCOSE,POINT OF CARE 117 MG/DL (70-110)
[2019-01-23 16:36] LABS: GLUCOMETER DEV NAME(LOC) 3EX.; GLUCOSE,POINT OF CARE 123 MG/DL (70-110)
[2019-01-23 17:40] VITALS: BP 127/79
[2019-01-23] MEDS: OLANZapine 10 MG TABLET PO SCH (20:48)
[2019-01-23 20:56] LABS: GLUCOMETER DEV NAME(LOC) 3EX.; GLUCOSE,POINT OF CARE 331 MG/DL (70-110)
[2019-01-23] MEDS: INSULIN LISPRO 100 UNITS/ML SQ PRN (21:28)
[2019-01-23] MEDS: INSULIN GLARGINE,HUM.REC.ANLOG 100 UNITS/ML SQ SCH (21:28)
[2019-01-24 05:36] LABS: GLUCOMETER DEV NAME(LOC) 3EX.; GLUCOSE,POINT OF CARE 84 MG/DL (70-110)
[2019-01-24] MEDS: INSULIN LISPRO 100 UNITS/ML SQ PRN ×4 (06:40→21:10)
[2019-01-24] MEDS: PANTOPRAZOLE SODIUM 40 MG DR TABLET PO SCH (06:41)
[2019-01-24] MEDS: VENLAFAXINE HCL 75 MG ER CAPSULE PO SCH (09:17)
[2019-01-24] MEDS: LISINOPRIL 10 MG TABLET PO SCH (09:17)
[2019-01-24 09:26] VITALS: BP 127/70
[2019-01-24 11:51] LABS: GLUCOMETER DEV NAME(LOC) 3EX.; GLUCOSE,POINT OF CARE 173 MG/DL (70-110)
[2019-01-24] MEDS: LORazepam 2 MG TABLET PO PRN (16:39)
[2019-01-24 16:45] VITALS: BP 110/62
[2019-01-24 16:46] LABS: GLUCOMETER DEV NAME(LOC) 3EX.; GLUCOSE,POINT OF CARE 203 MG/DL (70-110)
[2019-01-24 20:20] LABS: GLUCOMETER DEV NAME(LOC) 3EX.; GLUCOSE,POINT OF CARE 385 MG/DL (70-110)
[2019-01-24] MEDS: OLANZapine 10 MG TABLET PO SCH (20:27)
[2019-01-24] MEDS: INSULIN GLARGINE,HUM.REC.ANLOG 100 UNITS/ML SQ SCH (21:10)
[2019-01-25 05:56] LABS: GLUCOMETER DEV NAME(LOC) 3EX.; GLUCOSE,POINT OF CARE 141 MG/DL (70-110)
[2019-01-25] MEDS: PANTOPRAZOLE SODIUM 40 MG DR TABLET PO SCH (06:55)
[2019-01-25] MEDS: INSULIN LISPRO 100 UNITS/ML SQ PRN (07:05)
[2019-01-25 07:48] VITALS: BP 132/75
[2019-01-25] MEDS: VENLAFAXINE HCL 75 MG ER CAPSULE PO SCH (08:26)
[2019-01-25] MEDS: LISINOPRIL 10 MG TABLET PO SCH (08:26)
[2019-01-25] MEDS: LORazepam 2 MG TABLET PO PRN (08:27)
[2019-01-25 10:23] VITALS: BP 132/75
[2019-01-25] MEDS ORDERED: VENL-67 PO (11:57)
== END 2019-01-25 13:15 | disposition home or self-care (01) | DRG 750 ==
LOC: EMS 20:24 → 3EI 01-21 02:30
PROVIDERS: ADMIT Psychiatry & Neurology Psychiatry; ATTEND Psychiatry & Neurology Psychiatry
DX: F25.1 Schizoaffective disorder, depressive type (principal); E11.9 Type 2 diabetes mellitus without complications; R45.851 Suicidal ideations; F41.9 Anxiety disorder, unspecified; I10 Essential (primary) hypertension; F17.210 Nicotine dependence, cigarettes, uncomplicated; R45.87 Impulsiveness; F14.90 Cocaine use, unspecified, uncomplicated; F15.90 Other stimulant use, unspecified, uncomplicated; F10.10 Alcohol abuse, uncomplicated; K21.9 Gastro-esophageal reflux disease without esophagitis; Z59.0 Homelessness; Z79.4 Long term (current) use of insulin
CPT/HCPCS: 90686; 90732; G0480; J1815; Q0162

== ENCOUNTER 2019-02-10 20:24 | Inpatient (IN) | payer MEDICAID ==
[~2019-02-10] VITALS: Ht 175.3 cm; Wt 91.6 kg
[~2019-02-10 20:24] MED LIST changes: +LISI-661 PO; +OLAN10TA3 PO; -RISP4 PO; +VENL-67 PO
[2019-02-10 20:49] LABS: HEMOGLOBIN 14.1 g/dL (13.5-17.5); LYMPHOCYTES # (AUTO) 3.1 K/uL (1.0-4.8); MONOCYTES # (AUTO) 0.7 K/uL (0.1-1.0)
[2019-02-10 20:57] LABS: ANION GAP 18 mmol/L (8-16); CALCIUM, TOTAL 8.8 mg/dL (8.8-10.5); CARBON DIOXIDE 21 mmol/L (22-29); CHLORIDE 96 mmol/L (98-107); CREATININE 1.07 mg/dL (0.60-1.30); GLOMERULAR FILTR. RATE CALC > 60 mL/min (>60); GLUCOSE,RANDOM 298 mg/dL (70-110); POTASSIUM 3.4 mmol/L (3.5-5.1); SODIUM SERUM 135 mmol/L (136-145); UREA NITROGEN, BLOOD 16 mg/dL (7-18)
[2019-02-10 21:03] LABS: ALANINE AMINOTRANSFERASE 36 U/L (12-78); ALBUMIN 3.7 g/dL (3.4-5.0); ALKALINE PHOSPHATASE 154 U/L (46-116); ASPARTATE AMINOTRANSFERASE 25 U/L (15-37); BILIRUBIN,TOTAL 0.4 mg/dL (0.1-1.0); EOSINOPHILS % (AUTO) 0.4 % (1.0-6.0); LYMPHOCYTES % (AUTO) 30.7 % (22.0-44.0); MEAN CORPUSCULAR HEMOGLOBIN 27.5 pg (26.0-34.0); MEAN CORPUSCULAR HGB CONC 32.7 G/dL (31.0-37.0); MEAN CORPUSCULAR VOLUME 84 fL (80-100); MONOCYTES % (AUTO) 7.1 % (2.0-9.0); NEUTROPHILS % (AUTO) 60.8 % (40.0-70.0); RED BLOOD CELL COUNT(AUTO) 5.12 MIL/uL (4.50-5.90); RED CELL DISTRIBUTION WIDTH 17.3 % (11.5-14.5); TOTAL PROTEIN, SERUM 8.1 g/dL (6.4-8.2)
[2019-02-10 21:06] LABS: PLATELET COUNT (AUTO) 806 K/uL (150-450)
[2019-02-10 22:51] LABS: BAND NEUTROPHILS % (MANUAL) 0 % (0-5)
[2019-02-11] MEDS ORDERED: ZOLPIDEM TARTRATE 10 MG TABLET PO PRN (00:30)
[2019-02-11] MEDS ORDERED: HALOPERIDOL 5 MG TABLET PO PRN (00:30)
[2019-02-11] MEDS ORDERED: -PHARMACY VACCINE NOTE- MISC ONE (01:30)
[2019-02-11] MEDS: LORazepam 2 MG TABLET PO PRN (01:48)
[2019-02-11 04:12] VITALS: BP 146/99
[2019-02-11 04:38] VITALS: BP 146/99
[2019-02-11] MEDS ORDERED: DEXTROSE 50%-WATER 25 GM/50 ML SYRINGE IVP PRN (07:15)
[2019-02-11 07:17] LABS: GLUCOMETER DEV NAME(LOC) 3E.I; GLUCOSE,POINT OF CARE 208 MG/DL (70-110)
[2019-02-11] MEDS: INSULIN LISPRO 100 UNITS/ML SQ PRN ×3 (07:21→21:55)
[2019-02-11] MEDS: ASPIRIN 81 MG CHEWABLE TABLET PO SCH (08:36)
[2019-02-11 10:03] VITALS: BP 154/107
[2019-02-11 11:17] LABS: GLUCOMETER DEV NAME(LOC) 3EX.; GLUCOSE,POINT OF CARE 134 MG/DL (70-110)
[2019-02-11] MEDS ORDERED: MAG HYDROX/AL HYDROX/SIMETH ES 30 ML SUSPENSION UDCUP PO PRN (15:45)
[2019-02-11] MEDS ORDERED: ACETAMINOPHEN 325 MG TABLET PO PRN (15:45)
[2019-02-11] MEDS ORDERED: GuaiFENesin/D-METHORPHAN [SUGAR-FREE] 200-20MG/10 ML SYRUP UDCUP PO PRN (15:45)
[2019-02-11] MEDS ORDERED: CloNIDine HCL 0.1 MG TABLET PO PRN (15:45)
[2019-02-11] MEDS ORDERED: LOPERAMIDE HCL 2 MG CAPSULE PO PRN (15:45)
[2019-02-11] MEDS ORDERED: IBUPROFEN 400 MG TABLET PO PRN (15:45)
[2019-02-11] MEDS ORDERED: ONDANSETRON HCL 4 MG TABLET PO PRN (15:45)
[2019-02-11] MEDS ORDERED: DOCUSATE SODIUM 100 MG CAPSULE PO PRN (15:45)
[2019-02-11] MEDS ORDERED: PETROLATUM,WHITE 28 GM JELLY TP PRN (15:45)
[2019-02-11] MEDS ORDERED: NICOTINE 14 MG/24 HOUR PATCH TD PRN (15:45)
[2019-02-11] MEDS ORDERED: MAGNESIUM HYDROXIDE SUSPENSION 30 ML UDCUP PO PRN (15:45)
[2019-02-11] MEDS ORDERED: ALBUTEROL SULFATE HFA 90 MCG/PUFF 8 GM INHALER IH PRN (15:45)
[2019-02-11 16:46] VITALS: BP 149/87
[2019-02-11 17:03] LABS: GLUCOMETER DEV NAME(LOC) 3EX.; GLUCOSE,POINT OF CARE 149 MG/DL (70-110)
[2019-02-11] MEDS: INSULIN GLARGINE,HUM.REC.ANLOG 100 UNITS/ML SQ SCH (17:39)
[2019-02-11 22:02] LABS: GLUCOMETER DEV NAME(LOC) 3EX.; GLUCOSE,POINT OF CARE 241 MG/DL (70-110)
[2019-02-12 05:36] LABS: GLUCOMETER DEV NAME(LOC) 3EX.; GLUCOSE,POINT OF CARE 191 MG/DL (70-110)
[2019-02-12] MEDS: PANTOPRAZOLE SODIUM 40 MG DR TABLET PO SCH (06:46)
[2019-02-12] MEDS: INSULIN LISPRO 100 UNITS/ML SQ PRN ×3 (06:56→20:27)
[2019-02-12 08:00] LABS: HEMOGLOBIN A1C 8.7 % (4.5-6.2)
[2019-02-12 08:40] LABS: CHOL/HDL RATIO 3.4 (4.2-7.3); FREE T4 (FREE THYROXINE) 1.21 ng/dL (0.76-1.46)
[2019-02-12] MEDS: ASPIRIN 81 MG CHEWABLE TABLET PO SCH (09:42)
[2019-02-12] MEDS: LISINOPRIL 10 MG TABLET PO SCH (09:42)
[2019-02-12] MEDS: INSULIN GLARGINE,HUM.REC.ANLOG 100 UNITS/ML SQ SCH ×2 (09:51→17:04)
[2019-02-12 10:09] VITALS: BP 124/74
[2019-02-12 11:43] LABS: GLUCOMETER DEV NAME(LOC) 3EX.; GLUCOSE,POINT OF CARE 140 MG/DL (70-110)
[2019-02-12 16:23] LABS: GLUCOMETER DEV NAME(LOC) 3EX.; GLUCOSE,POINT OF CARE 274 MG/DL (70-110)
[2019-02-12 16:30] VITALS: BP 94/60
[2019-02-12 20:32] LABS: GLUCOMETER DEV NAME(LOC) 3EX.; GLUCOSE,POINT OF CARE 159 MG/DL (70-110)
[2019-02-13 05:04] VITALS: BP 129/83
[2019-02-13 06:33] LABS: GLUCOMETER DEV NAME(LOC) 3EX.; GLUCOSE,POINT OF CARE 226 MG/DL (70-110)
[2019-02-13] MEDS: INSULIN LISPRO 100 UNITS/ML SQ PRN ×5 (06:45→23:06)
[2019-02-13] MEDS: PANTOPRAZOLE SODIUM 40 MG DR TABLET PO SCH (06:45)
[2019-02-13 08:00] VITALS: BP 111/59
[2019-02-13] MEDS: LISINOPRIL 10 MG TABLET PO SCH (08:50)
[2019-02-13] MEDS: ASPIRIN 81 MG CHEWABLE TABLET PO SCH (08:50)
[2019-02-13] MEDS: INSULIN GLARGINE,HUM.REC.ANLOG 100 UNITS/ML SQ SCH ×2 (08:55→17:05)
[2019-02-13 11:58] LABS: GLUCOMETER DEV NAME(LOC) 3EX.; GLUCOSE,POINT OF CARE 142 MG/DL (70-110)
[2019-02-13] MEDS: LORazepam 2 MG TABLET PO PRN ×2 (13:19→18:03)
[2019-02-13 14:36] LABS: EOSINOPHILS % (MANUAL) 1 % (1-6); LYMPHOCYTES % (MANUAL) 22 % (22-44); MONOCYTES % (MANUAL) 6 % (2-9); SEGMENTED NEUTROPHILS % 65 % (40-70)
[2019-02-13 14:37] LABS: BASOPHILS % (MANUAL) 1 % (0-2); BLASTS, MANUAL % 0 (0-0); METAMYELOCYTES % 0 % (0-0); MYELOCYTES % 0 % (0-0); OTHER CELLS,MANUAL % 0 (0-0); PROMYELOCYTES % 0 (0-0)
[2019-02-13 16:52] LABS: GLUCOMETER DEV NAME(LOC) 3EX.; GLUCOSE,POINT OF CARE 231 MG/DL (70-110)
[2019-02-13 18:04] VITALS: BP 97/72
[2019-02-13] MEDS: OLANZapine 10 MG TABLET PO SCH (22:15)
[2019-02-13 22:43] LABS: GLUCOMETER DEV NAME(LOC) 3EX.; GLUCOSE,POINT OF CARE 336 MG/DL (70-110)
[2019-02-14 05:53] LABS: GLUCOMETER DEV NAME(LOC) 3EX.; GLUCOSE,POINT OF CARE 161 MG/DL (70-110)
[2019-02-14] MEDS: PANTOPRAZOLE SODIUM 40 MG DR TABLET PO SCH (07:03)
[2019-02-14] MEDS: INSULIN LISPRO 100 UNITS/ML SQ PRN ×3 (07:04→21:49)
[2019-02-14] MEDS: LISINOPRIL 10 MG TABLET PO SCH (08:36)
[2019-02-14] MEDS: VENLAFAXINE HCL 75 MG ER CAPSULE PO SCH (08:36)
[2019-02-14] MEDS: ASPIRIN 81 MG CHEWABLE TABLET PO SCH (08:36)
[2019-02-14] MEDS: INSULIN GLARGINE,HUM.REC.ANLOG 100 UNITS/ML SQ SCH ×2 (08:48→17:03)
[2019-02-14 11:37] LABS: GLUCOMETER DEV NAME(LOC) 3EX.; GLUCOSE,POINT OF CARE 116 MG/DL (70-110)
[2019-02-14 11:54] VITALS: BP 147/69
[2019-02-14 16:30] VITALS: BP 103/65
[2019-02-14] MEDS: LORazepam 2 MG TABLET PO PRN (16:59)
[2019-02-14 17:02] LABS: GLUCOMETER DEV NAME(LOC) 3EX.; GLUCOSE,POINT OF CARE 275 MG/DL (70-110)
[2019-02-14] MEDS: OLANZapine 10 MG TABLET PO SCH (21:41)
[2019-02-14 21:57] LABS: GLUCOMETER DEV NAME(LOC) 3EX.; GLUCOSE,POINT OF CARE 156 MG/DL (70-110)
[2019-02-15 06:10] LABS: GLUCOMETER DEV NAME(LOC) 3EX.; GLUCOSE,POINT OF CARE 142 MG/DL (70-110)
[2019-02-15] MEDS: PANTOPRAZOLE SODIUM 40 MG DR TABLET PO SCH (06:47)
[2019-02-15] MEDS: INSULIN LISPRO 100 UNITS/ML SQ PRN ×3 (06:58→21:25)
[2019-02-15 08:17] VITALS: BP 126/83
[2019-02-15] MEDS: LISINOPRIL 10 MG TABLET PO SCH (08:23)
[2019-02-15] MEDS: VENLAFAXINE HCL 75 MG ER CAPSULE PO SCH (08:23)
[2019-02-15] MEDS: ASPIRIN 81 MG CHEWABLE TABLET PO SCH (08:24)
[2019-02-15] MEDS: INSULIN GLARGINE,HUM.REC.ANLOG 100 UNITS/ML SQ SCH ×2 (08:31→17:17)
[2019-02-15 11:26] LABS: GLUCOMETER DEV NAME(LOC) 3EX.; GLUCOSE,POINT OF CARE 107 MG/DL (70-110)
[2019-02-15 12:52] LABS: BASOPHILS % (AUTO) 0.8 % (0.0-2.0); EOSINOPHILS % (AUTO) 0.9 % (1.0-6.0); HEMOGLOBIN 13.3 g/dL (13.5-17.5); LYMPHOCYTES # (AUTO) 1.9 K/uL (1.0-4.8); LYMPHOCYTES % (AUTO) 29.8 % (22.0-44.0); MEAN CORPUSCULAR HEMOGLOBIN 27.7 pg (26.0-34.0); MEAN CORPUSCULAR HGB CONC 32.4 G/dL (31.0-37.0); MEAN CORPUSCULAR VOLUME 85 fL (80-100); MONOCYTES # (AUTO) 0.3 K/uL (0.1-1.0); NEUTROPHILS # (AUTO) 4.1 K/uL (1.8-7.7); NEUTROPHILS % (AUTO) 63.5 % (40.0-70.0); PLATELET COUNT (AUTO) 558 K/uL (150-450); RED CELL DISTRIBUTION WIDTH 17.3 % (11.5-14.5)
[2019-02-15 13:12] LABS: ALANINE AMINOTRANSFERASE 28 U/L (12-78); ALBUMIN 3.2 g/dL (3.4-5.0); ALKALINE PHOSPHATASE 130 U/L (46-116); ANION GAP 7 mmol/L (8-16); ASPARTATE AMINOTRANSFERASE 18 U/L (15-37); BILIRUBIN,TOTAL 0.2 mg/dL (0.1-1.0); CARBON DIOXIDE 28 mmol/L (22-29); CHLORIDE 100 mmol/L (98-107); GLOMERULAR FILTR. RATE CALC > 60 mL/min (>60); GLUCOSE,RANDOM 218 mg/dL (70-110); POTASSIUM 4.1 mmol/L (3.5-5.1); SODIUM SERUM 135 mmol/L (136-145); UREA NITROGEN, BLOOD 15 mg/dL (7-18)
[2019-02-15 13:18] LABS: PLATELET MORPHOLOGY COMMENT GIANT PLTS PRESENT
[2019-02-15 16:22] LABS: GLUCOMETER DEV NAME(LOC) 3EX.; GLUCOSE,POINT OF CARE 348 MG/DL (70-110)
[2019-02-15 16:30] VITALS: BP 137/84
[2019-02-15] MEDS: LORazepam 2 MG TABLET PO PRN (16:42)
[2019-02-15] MEDS: OLANZapine 10 MG TABLET PO SCH (21:21)
[2019-02-16] MEDS: PANTOPRAZOLE SODIUM 40 MG DR TABLET PO SCH (06:51)
[2019-02-16] MEDS: INSULIN LISPRO 100 UNITS/ML SQ PRN ×2 (07:02→11:09)
[2019-02-16] MEDS: VENLAFAXINE HCL 75 MG ER CAPSULE PO SCH (07:58)
[2019-02-16] MEDS: ASPIRIN 81 MG CHEWABLE TABLET PO SCH (07:58)
[2019-02-16] MEDS: LISINOPRIL 10 MG TABLET PO SCH (07:58)
[2019-02-16] MEDS: INSULIN GLARGINE,HUM.REC.ANLOG 100 UNITS/ML SQ SCH (08:07)
[2019-02-16 09:00] VITALS: BP 132/95
[2019-02-16] MEDS ORDERED: ASPI81 PO (09:58)
[2019-02-16 13:14] LABS: GLUCOMETER DEV NAME(LOC) 3EX.; GLUCOSE,POINT OF CARE 265 MG/DL (70-110)
[2019-02-16 13:28] LABS: GLUCOMETER DEV NAME(LOC) 3EX.; GLUCOSE,POINT OF CARE 108 MG/DL (70-110)
[2019-02-16 13:45] LABS: GLUCOMETER DEV NAME(LOC) 3EX.; GLUCOSE,POINT OF CARE 172 MG/DL (70-110)
== END 2019-02-16 12:30 | disposition home or self-care (01) | DRG 750 ==
LOC: EMS 20:25 → 3EI 02-11 00:54
PROVIDERS: ADMIT Psychiatry & Neurology Psychiatry; ATTEND Psychiatry & Neurology Psychiatry
DX: F25.1 Schizoaffective disorder, depressive type (principal); D69.59 Other secondary thrombocytopenia; R45.851 Suicidal ideations; E11.9 Type 2 diabetes mellitus without complications; E87.1 Hypo-osmolality and hyponatremia; F10.10 Alcohol abuse, uncomplicated; F41.9 Anxiety disorder, unspecified; I10 Essential (primary) hypertension; K21.9 Gastro-esophageal reflux disease without esophagitis; Z88.8 Allergy status to other drugs, medicaments and biological substances; Z87.891 Personal history of nicotine dependence
CPT/HCPCS: 83036; 84439; 85007; 87081; 93005; G0480; J1815

== ENCOUNTER 2019-06-16 09:39 | Inpatient (IN) | payer MEDICAID ==
[2019-06-16] VITALS (7 sets, daily range): BP systolic 126–155; BP diastolic 73–89
[~2019-06-16] VITALS: Ht 182.9 cm; Wt 93.0 kg
[~2019-06-16 09:39] MED LIST changes: +ASPI-728 PO
[2019-06-16] MEDS ORDERED: ZOLPIDEM TARTRATE 10 MG TABLET PO PRN (12:15)
[2019-06-16] MEDS ORDERED: -PHARMACY VACCINE NOTE- MISC ONE (13:00)
[2019-06-16] MEDS ORDERED: HydrOXYzine PAMOATE 50 MG CAPSULE PO PRN (13:15)
[2019-06-16] MEDS ORDERED: CYANOCOBALAMIN 1,000 MCG/ML VIAL IM ONE (13:15)
[2019-06-16] MEDS ORDERED: GuaiFENesin/D-METHORPHAN [SUGAR-FREE] 200-20MG/10 ML SYRUP UDCUP PO PRN (13:15)
[2019-06-16] MEDS ORDERED: LORazepam 2 MG TABLET PO PRN (13:15)
[2019-06-16] MEDS ORDERED: LOPERAMIDE HCL 2 MG CAPSULE PO PRN (13:15)
[2019-06-16] MEDS: FOLIC ACID 1 MG TABLET PO SCH (14:00)
[2019-06-16] MEDS: MULTIVITAMINS WITH MINERALS, THERAPEUTIC TABLET PO SCH (14:00)
[2019-06-16 14:39] LABS: GLUCOMETER DEV NAME(LOC) BV2S.; GLUCOSE,POINT OF CARE 251 MG/DL (70-110)
[2019-06-16] MEDS: THIAMINE HCL 100 MG TABLET PO SCH (16:23)
[2019-06-16 17:12] LABS: GLUCOMETER DEV NAME(LOC) BV2S.; GLUCOSE,POINT OF CARE 158 MG/DL (70-110)
[2019-06-16] MEDS ORDERED: GLUCAGON,HUMAN RECOMBINANT 1 MG VIAL IM PRN (17:45)
[2019-06-16] MEDS: INSULIN LISPRO 100 UNITS/ML SQ PRN ×2 (17:49→20:55)
[2019-06-16] MEDS: OLANZapine 5 MG RAPDIS TABLET PO PRN (20:48)
[2019-06-16] MEDS: INSULIN GLARGINE,HUM.REC.ANLOG 100 UNITS/ML SQ SCH (20:54)
[2019-06-16 20:56] LABS: GLUCOMETER DEV NAME(LOC) BV2S.; GLUCOSE,POINT OF CARE 168 MG/DL (70-110)
[2019-06-17] VITALS (7 sets, daily range): BP systolic 110–125; BP diastolic 64–82
[2019-06-17 06:25] LABS: GLUCOMETER DEV NAME(LOC) BV2S.; GLUCOSE,POINT OF CARE 110 MG/DL (70-110)
[2019-06-17] MEDS: MetFORMIN HCL 500 MG TABLET PO SCH (06:40)
[2019-06-17] MEDS ORDERED: LORazepam 2 MG TABLET PO PRN (07:00)
[2019-06-17 07:17] LABS: BASOPHILS % (AUTO) 0.8 % (0.0-2.0); HEMATOCRIT 39.3 % (41-53); HEMOGLOBIN 12.5 g/dL (13.5-17.5); LYMPHOCYTES # (AUTO) 1.8 K/uL (1.0-4.8); LYMPHOCYTES % (AUTO) 35.2 % (22.0-44.0); MEAN CORPUSCULAR HEMOGLOBIN 24.5 pg (26.0-34.0); MEAN CORPUSCULAR HGB CONC 31.8 G/dL (31.0-37.0); MEAN CORPUSCULAR VOLUME 77 fL (80-100); MONOCYTES # (AUTO) 0.4 K/uL (0.1-1.0); MONOCYTES % (AUTO) 8.7 % (2.0-9.0); NEUTROPHILS # (AUTO) 2.8 K/uL (1.8-7.7); NEUTROPHILS % (AUTO) 54.3 % (40.0-70.0); PLATELET COUNT (AUTO) 581 K/uL (150-450); RED BLOOD CELL COUNT(AUTO) 5.11 MIL/uL (4.50-5.90); RED CELL DISTRIBUTION WIDTH 19.1 % (11.5-14.5)
[2019-06-17 07:53] LABS: ALANINE AMINOTRANSFERASE 44 U/L (12-78); ALBUMIN 3.6 g/dL (3.4-5.0); ALKALINE PHOSPHATASE 143 U/L (46-116); ANION GAP 7 mmol/L (8-16); ASPARTATE AMINOTRANSFERASE 37 U/L (15-37); BILIRUBIN,TOTAL 0.6 mg/dL (0.1-1.0); CALCIUM, TOTAL 9.1 mg/dL (8.8-10.5); CARBON DIOXIDE 28 mmol/L (22-29); CHLORIDE 102 mmol/L (98-107); CHOL/HDL RATIO 3.4 (4.2-7.3); CHOLESTEROL 196 mg/dL (131-200); CREATININE 0.82 mg/dL (0.60-1.30); GLOMERULAR FILTR. RATE CALC > 60 mL/min (>60); GLUCOSE,RANDOM 111 mg/dL (70-110); HDL CHOLESTEROL 58 mg/dL (40-60); LDL CHOL (CALC.) 117 mg/dL (0-130); POTASSIUM 4.4 mmol/L (3.5-5.1); SODIUM SERUM 137 mmol/L (136-145); TOTAL PROTEIN, SERUM 7.1 g/dL (6.4-8.2); TRIGLYCERIDES 103 mg/dL (15-150); UREA NITROGEN, BLOOD 17 mg/dL (7-18)
[2019-06-17 07:56] LABS: HEMOGLOBIN A1C 8.3 % (3.8-5.6)
[2019-06-17] MEDS: LORazepam 2 MG TABLET PO SCH ×4 (09:07→20:35)
[2019-06-17] MEDS: MULTIVITAMINS WITH MINERALS, THERAPEUTIC TABLET PO SCH (09:07)
[2019-06-17] MEDS: FOLIC ACID 1 MG TABLET PO SCH (09:07)
[2019-06-17] MEDS: THIAMINE HCL 100 MG TABLET PO SCH ×2 (09:07→16:21)
[2019-06-17] MEDS: INSULIN LISPRO 100 UNITS/ML SQ PRN ×3 (10:59→20:46)
[2019-06-17] MEDS ORDERED: MAGNESIUM HYDROXIDE SUSPENSION 30 ML UDCUP PO PRN (11:15)
[2019-06-17] MEDS ORDERED: PETROLATUM,WHITE 28 GM JELLY TP PRN (11:15)
[2019-06-17] MEDS ORDERED: ONDANSETRON HCL 4 MG TABLET PO PRN (11:15)
[2019-06-17] MEDS ORDERED: ACETAMINOPHEN 325 MG TABLET PO PRN (11:15)
[2019-06-17] MEDS ORDERED: CloNIDine HCL 0.1 MG TABLET PO PRN (11:15)
[2019-06-17] MEDS ORDERED: IBUPROFEN 400 MG TABLET PO PRN (11:15)
[2019-06-17] MEDS ORDERED: MAG HYDROX/AL HYDROX/SIMETH ES 30 ML SUSPENSION UDCUP PO PRN (11:15)
[2019-06-17] MEDS ORDERED: NICOTINE 14 MG/24 HOUR PATCH TD PRN (11:15)
[2019-06-17] MEDS ORDERED: ALBUTEROL SULFATE HFA 90 MCG/PUFF 8 GM INHALER IH PRN (11:15)
[2019-06-17] MEDS ORDERED: GuaiFENesin/D-METHORPHAN [SUGAR-FREE] 200-20MG/10 ML SYRUP UDCUP PO PRN (11:15)
[2019-06-17] MEDS ORDERED: DOCUSATE SODIUM 100 MG CAPSULE PO PRN (11:15)
[2019-06-17] MEDS ORDERED: LOPERAMIDE HCL 2 MG CAPSULE PO PRN (11:15)
[2019-06-17 12:29] LABS: GLUCOMETER DEV NAME(LOC) BV2S.; GLUCOSE,POINT OF CARE 158 MG/DL (70-110)
[2019-06-17] MEDS: PANTOPRAZOLE SODIUM 40 MG DR TABLET PO SCH (16:21)
[2019-06-17] MEDS: VENLAFAXINE HCL 75 MG ER CAPSULE PO SCH (16:21)
[2019-06-17] MEDS: OLANZapine 5 MG RAPDIS TABLET PO PRN (16:28)
[2019-06-17 17:13] LABS: GLUCOMETER DEV NAME(LOC) BV2S.; GLUCOSE,POINT OF CARE 164 MG/DL (70-110)
[2019-06-17] MEDS: INSULIN GLARGINE,HUM.REC.ANLOG 100 UNITS/ML SQ SCH (20:47)
[2019-06-17] MEDS ORDERED: RisperiDONE 2 MG TABLET PO SCH (21:00)
[2019-06-17 21:24] LABS: GLUCOMETER DEV NAME(LOC) BV2S.; GLUCOSE,POINT OF CARE 189 MG/DL (70-110)
[2019-06-18] MEDS ORDERED: PANTOPRAZOLE SODIUM 40 MG DR TABLET PO SCH (06:30)
[2019-06-18 06:38] LABS: GLUCOMETER DEV NAME(LOC) BV2S.; GLUCOSE,POINT OF CARE 94 MG/DL (70-110)
[2019-06-18] MEDS: MetFORMIN HCL 500 MG TABLET PO SCH (06:40)
[2019-06-18 06:43] VITALS: BP 108/67
[2019-06-18 07:14] VITALS: BP 108/67
[2019-06-18] MEDS: VENLAFAXINE HCL 75 MG ER CAPSULE PO SCH (08:39)
[2019-06-18] MEDS: LISINOPRIL 10 MG TABLET PO SCH (08:39)
[2019-06-18] MEDS: MULTIVITAMINS WITH MINERALS, THERAPEUTIC TABLET PO SCH (08:39)
[2019-06-18] MEDS: FOLIC ACID 1 MG TABLET PO SCH (08:39)
[2019-06-18] MEDS: THIAMINE HCL 100 MG TABLET PO SCH ×2 (08:39→16:54)
[2019-06-18] MEDS: ASPIRIN 81 MG CHEWABLE TABLET PO SCH (08:39)
[2019-06-18] MEDS: PANTOPRAZOLE SODIUM 40 MG DR TABLET PO SCH (08:39)
[2019-06-18] MEDS: LORazepam 2 MG TABLET PO SCH ×4 (08:40→20:42)
[2019-06-18 08:44] VITALS: BP 110/69
[2019-06-18] MEDS ORDERED: RisperiDONE 1 MG TABLET PO SCH (09:00)
[2019-06-18 11:14] LABS: GLUCOMETER DEV NAME(LOC) BV2S.; GLUCOSE,POINT OF CARE 124 MG/DL (70-110)
[2019-06-18] MEDS ORDERED: VENLAFAXINE HCL 75 MG ER CAPSULE PO ONE (16:00)
[2019-06-18 16:10] VITALS: BP 117/74
[2019-06-18] MEDS: RisperiDONE 2 MG TABLET PO SCH (16:53)
[2019-06-18 17:05] LABS: GLUCOMETER DEV NAME(LOC) BV2S.; GLUCOSE,POINT OF CARE 102 MG/DL (70-110)
[2019-06-18] MEDS: INSULIN LISPRO 100 UNITS/ML SQ PRN (20:53)
[2019-06-18] MEDS: INSULIN GLARGINE,HUM.REC.ANLOG 100 UNITS/ML SQ SCH (20:53)
[2019-06-18 21:25] LABS: GLUCOMETER DEV NAME(LOC) BV2S.; GLUCOSE,POINT OF CARE 164 MG/DL (70-110)
[2019-06-19 00:39] VITALS: BP 125/85
[2019-06-19 00:40] VITALS: BP 125/85
[2019-06-19 06:16] LABS: GLUCOMETER DEV NAME(LOC) BV2S.; GLUCOSE,POINT OF CARE 99 MG/DL (70-110)
[2019-06-19] MEDS: MetFORMIN HCL 500 MG TABLET PO SCH (06:19)
[2019-06-19] MEDS ORDERED: LORazepam 1 MG TABLET PO PRN (07:00)
[2019-06-19 08:40] VITALS: BP 131/79
[2019-06-19] MEDS: RisperiDONE 2 MG TABLET PO SCH ×2 (09:31→16:38)
[2019-06-19] MEDS: FOLIC ACID 1 MG TABLET PO SCH (09:31)
[2019-06-19] MEDS: THIAMINE HCL 100 MG TABLET PO SCH ×2 (09:31→16:38)
[2019-06-19] MEDS: LISINOPRIL 10 MG TABLET PO SCH (09:31)
[2019-06-19] MEDS: MULTIVITAMINS WITH MINERALS, THERAPEUTIC TABLET PO SCH (09:31)
[2019-06-19] MEDS: PANTOPRAZOLE SODIUM 40 MG DR TABLET PO SCH (09:31)
[2019-06-19] MEDS: ASPIRIN 81 MG CHEWABLE TABLET PO SCH (09:32)
[2019-06-19] MEDS: LORazepam 1 MG TABLET PO SCH ×4 (09:32→20:41)
[2019-06-19] MEDS: VENLAFAXINE HCL 150 MG ER CAPSULE PO SCH (09:36)
[2019-06-19] MEDS: INSULIN LISPRO 100 UNITS/ML SQ PRN ×2 (11:19→16:45)
[2019-06-19 11:33] LABS: GLUCOMETER DEV NAME(LOC) BV2S.; GLUCOSE,POINT OF CARE 150 MG/DL (70-110)
[2019-06-19 16:00] VITALS: BP 126/79
[2019-06-19 16:09] LABS: GLUCOMETER DEV NAME(LOC) BV2S.; GLUCOSE,POINT OF CARE 235 MG/DL (70-110)
[2019-06-19 16:20] VITALS: BP 126/79
[2019-06-19] MEDS: INSULIN GLARGINE,HUM.REC.ANLOG 100 UNITS/ML SQ SCH (20:51)
[2019-06-19 21:00] LABS: GLUCOMETER DEV NAME(LOC) BV2S.; GLUCOSE,POINT OF CARE 89 MG/DL (70-110)
[2019-06-20 00:52] VITALS: BP 117/71
[2019-06-20 06:23] LABS: GLUCOMETER DEV NAME(LOC) BV2S.; GLUCOSE,POINT OF CARE 70 MG/DL (70-110)
[2019-06-20] MEDS: MetFORMIN HCL 500 MG TABLET PO SCH (06:52)
[2019-06-20] MEDS ORDERED: LORazepam 1 MG TABLET PO PRN (07:00)
[2019-06-20 08:09] VITALS: BP 134/87
[2019-06-20 08:13] VITALS: BP 134/87
[2019-06-20] MEDS: FOLIC ACID 1 MG TABLET PO SCH (08:51)
[2019-06-20] MEDS: THIAMINE HCL 100 MG TABLET PO SCH ×2 (08:51→16:29)
[2019-06-20] MEDS: PANTOPRAZOLE SODIUM 40 MG DR TABLET PO SCH (08:51)
[2019-06-20] MEDS: MULTIVITAMINS WITH MINERALS, THERAPEUTIC TABLET PO SCH (08:51)
[2019-06-20] MEDS: VENLAFAXINE HCL 150 MG ER CAPSULE PO SCH (08:51)
[2019-06-20] MEDS: RisperiDONE 2 MG TABLET PO SCH ×2 (08:51→16:29)
[2019-06-20] MEDS: LISINOPRIL 10 MG TABLET PO SCH (08:51)
[2019-06-20] MEDS: ASPIRIN 81 MG CHEWABLE TABLET PO SCH (08:51)
[2019-06-20 10:50] LABS: GLUCOMETER DEV NAME(LOC) BV2S.; GLUCOSE,POINT OF CARE 248 MG/DL (70-110)
[2019-06-20] MEDS: INSULIN LISPRO 100 UNITS/ML SQ PRN ×3 (11:29→20:38)
[2019-06-20 16:10] VITALS: BP 118/68
[2019-06-20 17:04] LABS: GLUCOMETER DEV NAME(LOC) BV2S.; GLUCOSE,POINT OF CARE 181 MG/DL (70-110)
[2019-06-20] MEDS: INSULIN GLARGINE,HUM.REC.ANLOG 100 UNITS/ML SQ SCH (20:38)
[2019-06-20 22:06] LABS: GLUCOMETER DEV NAME(LOC) BV2S.; GLUCOSE,POINT OF CARE 165 MG/DL (70-110)
[2019-06-21 01:15] VITALS: BP 119/86
[2019-06-21 06:29] LABS: GLUCOMETER DEV NAME(LOC) BV2S.; GLUCOSE,POINT OF CARE 76 MG/DL (70-110)
[2019-06-21] MEDS: MetFORMIN HCL 500 MG TABLET PO SCH (06:56)
[2019-06-21] MEDS: ASPIRIN 81 MG CHEWABLE TABLET PO SCH (08:21)
[2019-06-21] MEDS: PANTOPRAZOLE SODIUM 40 MG DR TABLET PO SCH (08:21)
[2019-06-21] MEDS: LISINOPRIL 10 MG TABLET PO SCH (08:21)
[2019-06-21] MEDS: VENLAFAXINE HCL 150 MG ER CAPSULE PO SCH (08:21)
[2019-06-21] MEDS: RisperiDONE 2 MG TABLET PO SCH ×2 (08:21→16:30)
[2019-06-21] MEDS: THIAMINE HCL 100 MG TABLET PO SCH ×2 (08:21→16:30)
[2019-06-21] MEDS: LORazepam 2 MG TABLET PO PRN (08:21)
[2019-06-21] MEDS: FOLIC ACID 1 MG TABLET PO SCH (08:21)
[2019-06-21] MEDS: MULTIVITAMINS WITH MINERALS, THERAPEUTIC TABLET PO SCH (08:21)
[2019-06-21 08:26] VITALS: BP 113/75
[2019-06-21 11:49] LABS: GLUCOMETER DEV NAME(LOC) BV2S.; GLUCOSE,POINT OF CARE 73 MG/DL (70-110)
[2019-06-21 16:23] VITALS: BP 124/63
[2019-06-21] MEDS: INSULIN LISPRO 100 UNITS/ML SQ PRN ×2 (16:43→20:28)
[2019-06-21 16:56] LABS: GLUCOMETER DEV NAME(LOC) BV2S.; GLUCOSE,POINT OF CARE 276 MG/DL (70-110)
[2019-06-21] MEDS: OLANZapine 5 MG RAPDIS TABLET PO PRN (20:08)
[2019-06-21] MEDS: INSULIN GLARGINE,HUM.REC.ANLOG 100 UNITS/ML SQ SCH (20:28)
[2019-06-21 20:54] LABS: GLUCOMETER DEV NAME(LOC) BV2S.; GLUCOSE,POINT OF CARE 270 MG/DL (70-110)
[2019-06-22 00:32] VITALS: BP 115/54
[2019-06-22] MEDS: MetFORMIN HCL 500 MG TABLET PO SCH (06:53)
[2019-06-22 07:03] LABS: GLUCOMETER DEV NAME(LOC) BV2S.; GLUCOSE,POINT OF CARE 164 MG/DL (70-110)
[2019-06-22 08:21] VITALS: BP 115/72
[2019-06-22] MEDS: VENLAFAXINE HCL 150 MG ER CAPSULE PO SCH (08:32)
[2019-06-22] MEDS: THIAMINE HCL 100 MG TABLET PO SCH ×2 (08:32→16:00)
[2019-06-22] MEDS: FOLIC ACID 1 MG TABLET PO SCH (08:32)
[2019-06-22] MEDS: LISINOPRIL 10 MG TABLET PO SCH (08:32)
[2019-06-22] MEDS: ASPIRIN 81 MG CHEWABLE TABLET PO SCH (08:32)
[2019-06-22] MEDS: PANTOPRAZOLE SODIUM 40 MG DR TABLET PO SCH (08:32)
[2019-06-22] MEDS: MULTIVITAMINS WITH MINERALS, THERAPEUTIC TABLET PO SCH (08:32)
[2019-06-22] MEDS: RisperiDONE 2 MG TABLET PO SCH ×2 (08:32→16:00)
[2019-06-22] MEDS: INSULIN LISPRO 100 UNITS/ML SQ PRN ×3 (11:10→21:05)
[2019-06-22 11:58] LABS: GLUCOMETER DEV NAME(LOC) BV2S.; GLUCOSE,POINT OF CARE 268 MG/DL (70-110)
[2019-06-22] MEDS: LORazepam 2 MG TABLET PO PRN ×3 (13:56→22:17)
[2019-06-22 17:00] LABS: GLUCOMETER DEV NAME(LOC) BV2S.; GLUCOSE,POINT OF CARE 234 MG/DL (70-110)
[2019-06-22 18:17] VITALS: BP 128/83
[2019-06-22] MEDS: INSULIN GLARGINE,HUM.REC.ANLOG 100 UNITS/ML SQ SCH (21:13)
[2019-06-22 21:24] LABS: GLUCOMETER DEV NAME(LOC) BV2S.; GLUCOSE,POINT OF CARE 224 MG/DL (70-110)
[2019-06-23 01:32] VITALS: BP 90/48
[2019-06-23 06:25] LABS: GLUCOMETER DEV NAME(LOC) BV2S.; GLUCOSE,POINT OF CARE 86 MG/DL (70-110)
[2019-06-23] MEDS: MetFORMIN HCL 500 MG TABLET PO SCH (06:37)
[2019-06-23 08:20] VITALS: BP 134/68
[2019-06-23] MEDS: LISINOPRIL 10 MG TABLET PO SCH (09:03)
[2019-06-23] MEDS: FOLIC ACID 1 MG TABLET PO SCH (09:03)
[2019-06-23] MEDS: VENLAFAXINE HCL 150 MG ER CAPSULE PO SCH (09:03)
[2019-06-23] MEDS: PANTOPRAZOLE SODIUM 40 MG DR TABLET PO SCH (09:03)
[2019-06-23] MEDS: THIAMINE HCL 100 MG TABLET PO SCH (09:03)
[2019-06-23] MEDS: RisperiDONE 2 MG TABLET PO SCH (09:04)
[2019-06-23] MEDS: ASPIRIN 81 MG CHEWABLE TABLET PO SCH (09:04)
[2019-06-23] MEDS: MULTIVITAMINS WITH MINERALS, THERAPEUTIC TABLET PO SCH (09:04)
[2019-06-23] MEDS ORDERED: RISP2 PO (10:44)
[2019-06-23] MEDS ORDERED: VENL150C2 PO (10:44)
[2019-06-23 11:13] LABS: GLUCOMETER DEV NAME(LOC) BV2S.; GLUCOSE,POINT OF CARE 186 MG/DL (70-110)
[2019-06-23] MEDS: INSULIN LISPRO 100 UNITS/ML SQ PRN (11:38)
[2019-06-23] MEDS ORDERED: INSLAN SQ (12:18)
[2019-06-23] MEDS ORDERED: METF-960 PO (12:19)
== END 2019-06-23 12:35 | disposition home or self-care (01) | DRG 750 ==
LOC: B2S 12:17
PROVIDERS: ADMIT Psychiatry & Neurology Child & Adolescent Psychiatry; ATTEND Psychiatry & Neurology Child & Adolescent Psychiatry
DX: F25.1 Schizoaffective disorder, depressive type (principal); R45.851 Suicidal ideations; E11.9 Type 2 diabetes mellitus without complications; F10.10 Alcohol abuse, uncomplicated; D64.9 Anemia, unspecified; D47.3 Essential (hemorrhagic) thrombocythemia; I10 Essential (primary) hypertension; K21.9 Gastro-esophageal reflux disease without esophagitis; Z79.899 Other long term (current) drug therapy; Z91.5 Personal history of self-harm
CPT/HCPCS: 83036; J1815; J3420

== ENCOUNTER 2019-06-26 18:03 | Inpatient (IN) | payer MEDICAID ==
[~2019-06-26] VITALS: Ht 182.9 cm; Wt 95.9 kg
[~2019-06-26 18:03] MED LIST changes: +METF-960 PO; -OLAN10TA3 PO; +RISP2 PO; -VENL-67 PO; +VENL150C2 PO
[2019-06-26 22:34] LABS: BASOPHILS % (AUTO) 0.7 % (0.0-2.0); EOSINOPHILS % (AUTO) 0.1 % (1.0-6.0); HEMATOCRIT 38.7 % (41-53); HEMOGLOBIN 12.6 g/dL (13.5-17.5); LYMPHOCYTES # (AUTO) 2.5 K/uL (1.0-4.8); LYMPHOCYTES % (AUTO) 34.2 % (22.0-44.0); MEAN CORPUSCULAR HEMOGLOBIN 25.1 pg (26.0-34.0); MEAN CORPUSCULAR HGB CONC 32.5 G/dL (31.0-37.0); MEAN CORPUSCULAR VOLUME 77 fL (80-100); MONOCYTES # (AUTO) 0.7 K/uL (0.1-1.0); MONOCYTES % (AUTO) 9.5 % (2.0-9.0); NEUTROPHILS # (AUTO) 4.1 K/uL (1.8-7.7); NEUTROPHILS % (AUTO) 55.5 % (40.0-70.0); PLATELET COUNT (AUTO) 736 K/uL (150-450); RED BLOOD CELL COUNT(AUTO) 5.01 MIL/uL (4.50-5.90); RED CELL DISTRIBUTION WIDTH 20.3 % (11.5-14.5)
[2019-06-26] MEDS ORDERED: ONDANSETRON HCL 4 MG TABLET PO ONE (22:45)
[2019-06-26 22:49] LABS: ALANINE AMINOTRANSFERASE 57 U/L (12-78); ALBUMIN 3.8 g/dL (3.4-5.0); ALKALINE PHOSPHATASE 160 U/L (46-116); ANION GAP 14 mmol/L (8-16); ASPARTATE AMINOTRANSFERASE 48 U/L (15-37); BILIRUBIN,TOTAL 0.3 mg/dL (0.1-1.0); CALCIUM, TOTAL 8.8 mg/dL (8.8-10.5); CARBON DIOXIDE 26 mmol/L (22-29); CHLORIDE 95 mmol/L (98-107); CREATININE 1.04 mg/dL (0.60-1.30); GLOMERULAR FILTR. RATE CALC > 60 mL/min (>60); GLUCOSE,RANDOM 388 mg/dL (70-110); POTASSIUM 3.2 mmol/L (3.5-5.1); SODIUM SERUM 135 mmol/L (136-145); TOTAL PROTEIN, SERUM 7.7 g/dL (6.4-8.2); UREA NITROGEN, BLOOD 15 mg/dL (7-18)
[2019-06-26] MEDS ORDERED: POTASSIUM CHLORIDE 20 MEQ ER TABLET PO ONE (23:15)
[2019-06-26] MEDS ORDERED: SODIUM CHLORIDE 0.9% 1,000 ML IV ONE (23:15)
[2019-06-27 00:31] LABS: GLUCOSE,POINT OF CARE 325 MG/DL (70-110)
[2019-06-27 01:26] LABS: GLUCOSE,POINT OF CARE 310 MG/DL (70-110)
[2019-06-27 04:09] LABS: AMPHET/METH SCREEN,URINE NEGATIVE (NEGATIVE); BARBITURATE SCREEN, URINE NEGATIVE (NEGATIVE); BENZODIAZEPINES SCREEN,URINE NEGATIVE (NEGATIVE); CANNABINOID SCREEN,URINE NEGATIVE (NEGATIVE); COCAINE SCREEN,URINE NEGATIVE (NEGATIVE); METHADONE SCREEN, URINE NEGATIVE (NEGATIVE); OPIATE SCREEN,URINE NEGATIVE (NEGATIVE)
[2019-06-27 04:11] LABS: PHENCYCLIDINE SCREEN,URINE NEGATIVE (NEGATIVE)
[2019-06-27 08:03] LABS: GLUCOSE,POINT OF CARE 130 MG/DL (70-110)
[2019-06-27 12:17] VITALS: BP 142/98
[2019-06-27] MEDS ORDERED: DEXTROSE 50%-WATER 25 GM/50 ML SYRINGE IVP PRN (12:30)
[2019-06-27] MEDS ORDERED: INSULIN LISPRO 100 UNITS/ML SQ PRN (12:30)
[2019-06-27] MEDS: NICOTINE 14 MG/24 HOUR PATCH TD SCH (12:30)
[2019-06-27] MEDS ORDERED: GLUCAGON,HUMAN RECOMBINANT 1 MG VIAL IM PRN (12:45)
[2019-06-27] MEDS: LISINOPRIL 10 MG TABLET PO SCH (13:34)
[2019-06-27] MEDS: MetFORMIN HCL 500 MG TABLET PO SCH (13:34)
[2019-06-27] MEDS: PANTOPRAZOLE SODIUM 40 MG DR TABLET PO SCH (13:34)
[2019-06-27] MEDS: ASPIRIN 81 MG CHEWABLE TABLET PO SCH (13:34)
[2019-06-27] MEDS ORDERED: -PHARMACY VACCINE NOTE- MISC ONE (14:00)
[2019-06-27 15:19] LABS: GLUCOMETER DEV NAME(LOC) BV3S.; GLUCOSE,POINT OF CARE 236 MG/DL (70-110)
[2019-06-27] MEDS ORDERED: CloNIDine HCL 0.1 MG TABLET PO PRN (15:45)
[2019-06-27] MEDS ORDERED: MAGNESIUM HYDROXIDE SUSPENSION 30 ML UDCUP PO PRN (15:45)
[2019-06-27] MEDS ORDERED: IBUPROFEN 400 MG TABLET PO PRN (15:45)
[2019-06-27] MEDS ORDERED: GuaiFENesin/D-METHORPHAN [SUGAR-FREE] 200-20MG/10 ML SYRUP UDCUP PO PRN (15:45)
[2019-06-27] MEDS ORDERED: NICOTINE 14 MG/24 HOUR PATCH TD PRN (15:45)
[2019-06-27] MEDS ORDERED: ACETAMINOPHEN 325 MG TABLET PO PRN (15:45)
[2019-06-27] MEDS ORDERED: ONDANSETRON HCL 4 MG TABLET PO PRN (15:45)
[2019-06-27] MEDS ORDERED: PETROLATUM,WHITE 28 GM JELLY TP PRN (15:45)
[2019-06-27] MEDS ORDERED: ALBUTEROL SULFATE HFA 90 MCG/PUFF 8 GM INHALER IH PRN (15:45)
[2019-06-27] MEDS ORDERED: DOCUSATE SODIUM 100 MG CAPSULE PO PRN (15:45)
[2019-06-27] MEDS ORDERED: LOPERAMIDE HCL 2 MG CAPSULE PO PRN (15:45)
[2019-06-27 16:02] VITALS: BP 134/90
[2019-06-27] MEDS: LORazepam 2 MG TABLET PO PRN (16:28)
[2019-06-27] MEDS: HALOPERIDOL 5 MG TABLET PO PRN (16:28)
[2019-06-27] MEDS: MAG HYDROX/AL HYDROX/SIMETH ES 30 ML SUSPENSION UDCUP PO PRN (16:54)
[2019-06-27] MEDS: INSULIN LISPRO 100 UNITS/ML SQ PRN ×2 (16:59→21:03)
[2019-06-27 17:11] LABS: GLUCOMETER DEV NAME(LOC) BV3S.; GLUCOSE,POINT OF CARE 242 MG/DL (70-110)
[2019-06-27] MEDS: INSULIN GLARGINE,HUM.REC.ANLOG 100 UNITS/ML SQ SCH (21:03)
[2019-06-27 21:06] LABS: GLUCOMETER DEV NAME(LOC) BV3S.; GLUCOSE,POINT OF CARE 201 MG/DL (70-110)
[2019-06-28 06:26] LABS: GLUCOMETER DEV NAME(LOC) BV3S.; GLUCOSE,POINT OF CARE 154 MG/DL (70-110)
[2019-06-28 06:32] VITALS: BP 116/81
[2019-06-28] MEDS: MetFORMIN HCL 500 MG TABLET PO SCH (06:37)
[2019-06-28] MEDS: INSULIN LISPRO 100 UNITS/ML SQ PRN ×3 (06:38→21:01)
[2019-06-28] MEDS: LISINOPRIL 10 MG TABLET PO SCH (08:35)
[2019-06-28] MEDS: ASPIRIN 81 MG CHEWABLE TABLET PO SCH (08:36)
[2019-06-28] MEDS: PANTOPRAZOLE SODIUM 40 MG DR TABLET PO SCH (08:36)
[2019-06-28] MEDS: NICOTINE 14 MG/24 HOUR PATCH TD SCH (08:41)
[2019-06-28 08:44] VITALS: BP 123/83
[2019-06-28] MEDS: LORazepam 2 MG TABLET PO PRN ×2 (11:17→16:13)
[2019-06-28 11:25] LABS: GLUCOMETER DEV NAME(LOC) BV3S.; GLUCOSE,POINT OF CARE 135 MG/DL (70-110)
[2019-06-28] MEDS: VENLAFAXINE HCL 150 MG ER CAPSULE PO SCH (13:22)
[2019-06-28 16:06] VITALS: BP 121/67
[2019-06-28] MEDS: RisperiDONE 2 MG TABLET PO SCH (16:13)
[2019-06-28] MEDS: HALOPERIDOL 5 MG TABLET PO PRN (16:13)
[2019-06-28 17:02] LABS: GLUCOMETER DEV NAME(LOC) BV3S.; GLUCOSE,POINT OF CARE 251 MG/DL (70-110)
[2019-06-28] MEDS: INSULIN GLARGINE,HUM.REC.ANLOG 100 UNITS/ML SQ SCH (21:01)
[2019-06-28 21:30] LABS: GLUCOMETER DEV NAME(LOC) BV3S.; GLUCOSE,POINT OF CARE 223 MG/DL (70-110)
[2019-06-28] MEDS: ZOLPIDEM TARTRATE 10 MG TABLET PO PRN (22:27)
[2019-06-29 05:49] VITALS: BP 131/92
[2019-06-29 06:58] LABS: GLUCOMETER DEV NAME(LOC) BV3S.; GLUCOSE,POINT OF CARE 97 MG/DL (70-110)
[2019-06-29] MEDS: MetFORMIN HCL 500 MG TABLET PO SCH (07:25)
[2019-06-29 08:07] VITALS: BP 130/84
[2019-06-29] MEDS: NICOTINE 14 MG/24 HOUR PATCH TD SCH (09:00)
[2019-06-29] MEDS: LISINOPRIL 10 MG TABLET PO SCH (09:26)
[2019-06-29] MEDS: RisperiDONE 2 MG TABLET PO SCH ×2 (09:26→16:51)
[2019-06-29] MEDS: PANTOPRAZOLE SODIUM 40 MG DR TABLET PO SCH (09:26)
[2019-06-29] MEDS: LORazepam 2 MG TABLET PO PRN ×2 (09:26→16:51)
[2019-06-29] MEDS: VENLAFAXINE HCL 150 MG ER CAPSULE PO SCH (09:26)
[2019-06-29] MEDS: ASPIRIN 81 MG CHEWABLE TABLET PO SCH (09:27)
[2019-06-29 11:24] LABS: GLUCOMETER DEV NAME(LOC) BV3S.; GLUCOSE,POINT OF CARE 79 MG/DL (70-110)
[2019-06-29 16:03] VITALS: BP 110/76
[2019-06-29 16:47] LABS: GLUCOMETER DEV NAME(LOC) BV3S.; GLUCOSE,POINT OF CARE 261 MG/DL (70-110)
[2019-06-29] MEDS: HALOPERIDOL 5 MG TABLET PO PRN (16:51)
[2019-06-29] MEDS: INSULIN LISPRO 100 UNITS/ML SQ PRN ×2 (16:57→21:02)
[2019-06-29] MEDS: INSULIN GLARGINE,HUM.REC.ANLOG 100 UNITS/ML SQ SCH (21:02)
[2019-06-29 21:10] LABS: GLUCOMETER DEV NAME(LOC) BV3S.; GLUCOSE,POINT OF CARE 191 MG/DL (70-110)
[2019-06-30 05:41] VITALS: BP 123/68
[2019-06-30 06:30] LABS: GLUCOMETER DEV NAME(LOC) BV3S.; GLUCOSE,POINT OF CARE 62 MG/DL (70-110)
[2019-06-30] MEDS: MetFORMIN HCL 500 MG TABLET PO SCH (06:40)
[2019-06-30 08:26] VITALS: BP 126/74
[2019-06-30] MEDS: LORazepam 2 MG TABLET PO PRN ×2 (08:56→16:06)
[2019-06-30] MEDS: RisperiDONE 2 MG TABLET PO SCH ×2 (08:56→16:06)
[2019-06-30] MEDS: VENLAFAXINE HCL 150 MG ER CAPSULE PO SCH (08:57)
[2019-06-30] MEDS: LISINOPRIL 10 MG TABLET PO SCH (08:57)
[2019-06-30] MEDS: PANTOPRAZOLE SODIUM 40 MG DR TABLET PO SCH (08:57)
[2019-06-30] MEDS: ASPIRIN 81 MG CHEWABLE TABLET PO SCH (08:57)
[2019-06-30] MEDS: NICOTINE 14 MG/24 HOUR PATCH TD SCH (09:00)
[2019-06-30 11:42] LABS: GLUCOMETER DEV NAME(LOC) BV3S.; GLUCOSE,POINT OF CARE 89 MG/DL (70-110)
[2019-06-30 11:42] LABS: GLUCOMETER DEV NAME(LOC) BV3S.; GLUCOSE,POINT OF CARE 97 MG/DL (70-110)
[2019-06-30] MEDS: INSULIN LISPRO 100 UNITS/ML SQ PRN ×2 (16:26→20:27)
[2019-06-30 16:51] LABS: GLUCOMETER DEV NAME(LOC) BV2S.; GLUCOSE,POINT OF CARE 153 MG/DL (70-110)
[2019-06-30 17:32] VITALS: BP 107/69
[2019-06-30] MEDS: INSULIN GLARGINE,HUM.REC.ANLOG 100 UNITS/ML SQ SCH (20:27)
[2019-06-30 20:40] LABS: GLUCOMETER DEV NAME(LOC) BV2S.; GLUCOSE,POINT OF CARE 243 MG/DL (70-110)
[2019-07-01 04:53] VITALS: BP 126/71
[2019-07-01] MEDS: MetFORMIN HCL 500 MG TABLET PO SCH (06:34)
[2019-07-01 06:44] LABS: GLUCOMETER DEV NAME(LOC) BV2S.; GLUCOSE,POINT OF CARE 65 MG/DL (70-110)
[2019-07-01 06:44] LABS: GLUCOMETER DEV NAME(LOC) BV2S.; GLUCOSE,POINT OF CARE 108 MG/DL (70-110)
[2019-07-01 08:22] VITALS: BP 106/60
[2019-07-01 08:45] VITALS: BP 116/66
[2019-07-01] MEDS: LISINOPRIL 10 MG TABLET PO SCH (08:46)
[2019-07-01] MEDS: PANTOPRAZOLE SODIUM 40 MG DR TABLET PO SCH (08:46)
[2019-07-01] MEDS: LORazepam 2 MG TABLET PO PRN ×2 (08:46→18:20)
[2019-07-01] MEDS: VENLAFAXINE HCL 150 MG ER CAPSULE PO SCH (08:46)
[2019-07-01] MEDS: ASPIRIN 81 MG CHEWABLE TABLET PO SCH (08:46)
[2019-07-01] MEDS: RisperiDONE 2 MG TABLET PO SCH ×2 (08:46→16:00)
[2019-07-01] MEDS: INSULIN LISPRO 100 UNITS/ML SQ PRN ×3 (10:53→20:20)
[2019-07-01 12:47] LABS: GLUCOMETER DEV NAME(LOC) BV2S.; GLUCOSE,POINT OF CARE 280 MG/DL (70-110)
[2019-07-01] MEDS: HALOPERIDOL 5 MG TABLET PO PRN (13:46)
[2019-07-01] MEDS: MAG HYDROX/AL HYDROX/SIMETH ES 30 ML SUSPENSION UDCUP PO PRN (15:50)
[2019-07-01 16:01] VITALS: BP 111/72
[2019-07-01 16:46] LABS: GLUCOMETER DEV NAME(LOC) BV2S.; GLUCOSE,POINT OF CARE 192 MG/DL (70-110)
[2019-07-01] MEDS: INSULIN GLARGINE,HUM.REC.ANLOG 100 UNITS/ML SQ SCH (20:20)
[2019-07-01 20:36] LABS: GLUCOMETER DEV NAME(LOC) BV2S.; GLUCOSE,POINT OF CARE 169 MG/DL (70-110)
[2019-07-02 00:43] VITALS: BP 116/85
[2019-07-02] MEDS: MetFORMIN HCL 500 MG TABLET PO SCH (06:32)
[2019-07-02 06:34] LABS: GLUCOMETER DEV NAME(LOC) BV2S.; GLUCOSE,POINT OF CARE 75 MG/DL (70-110)
[2019-07-02 08:01] VITALS: BP 116/68
[2019-07-02] MEDS: RisperiDONE 2 MG TABLET PO SCH ×2 (08:09→16:19)
[2019-07-02] MEDS: ASPIRIN 81 MG CHEWABLE TABLET PO SCH (08:09)
[2019-07-02] MEDS: LISINOPRIL 10 MG TABLET PO SCH (08:09)
[2019-07-02] MEDS: PANTOPRAZOLE SODIUM 40 MG DR TABLET PO SCH (08:10)
[2019-07-02] MEDS: VENLAFAXINE HCL 150 MG ER CAPSULE PO SCH (08:10)
[2019-07-02] MEDS: LORazepam 2 MG TABLET PO PRN ×2 (08:17→16:30)
[2019-07-02] MEDS: INSULIN LISPRO 100 UNITS/ML SQ PRN ×3 (11:09→20:32)
[2019-07-02 11:47] LABS: GLUCOMETER DEV NAME(LOC) BV2S.; GLUCOSE,POINT OF CARE 153 MG/DL (70-110)
[2019-07-02 16:02] VITALS: BP 101/63
[2019-07-02 16:42] VITALS: BP 120/80
[2019-07-02 16:47] LABS: GLUCOMETER DEV NAME(LOC) BV2S.; GLUCOSE,POINT OF CARE 176 MG/DL (70-110)
[2019-07-02] MEDS: INSULIN GLARGINE,HUM.REC.ANLOG 100 UNITS/ML SQ SCH (20:32)
[2019-07-02 20:48] LABS: GLUCOMETER DEV NAME(LOC) BV2S.; GLUCOSE,POINT OF CARE 238 MG/DL (70-110)
[2019-07-03 06:42] LABS: GLUCOMETER DEV NAME(LOC) BV2S.; GLUCOSE,POINT OF CARE 152 MG/DL (70-110)
[2019-07-03] MEDS: MetFORMIN HCL 500 MG TABLET PO SCH (06:45)
[2019-07-03] MEDS: INSULIN LISPRO 100 UNITS/ML SQ PRN ×3 (06:48→20:32)
[2019-07-03 08:21] VITALS: BP 137/71
[2019-07-03] MEDS: ASPIRIN 81 MG CHEWABLE TABLET PO SCH (08:27)
[2019-07-03] MEDS: LISINOPRIL 10 MG TABLET PO SCH (08:28)
[2019-07-03] MEDS: RisperiDONE 2 MG TABLET PO SCH ×2 (08:28→16:38)
[2019-07-03] MEDS: PANTOPRAZOLE SODIUM 40 MG DR TABLET PO SCH (08:28)
[2019-07-03] MEDS: VENLAFAXINE HCL 150 MG ER CAPSULE PO SCH (08:28)
[2019-07-03 11:35] LABS: GLUCOMETER DEV NAME(LOC) BV2S.; GLUCOSE,POINT OF CARE 110 MG/DL (70-110)
[2019-07-03] MEDS: LORazepam 2 MG TABLET PO PRN ×2 (11:54→16:25)
[2019-07-03 16:01] VITALS: BP 111/68
[2019-07-03 16:12] LABS: GLUCOMETER DEV NAME(LOC) BV2S.; GLUCOSE,POINT OF CARE 303 MG/DL (70-110)
[2019-07-03 20:18] LABS: GLUCOMETER DEV NAME(LOC) BV2S.; GLUCOSE,POINT OF CARE 321 MG/DL (70-110)
[2019-07-03] MEDS: INSULIN GLARGINE,HUM.REC.ANLOG 100 UNITS/ML SQ SCH (20:32)
[2019-07-04 01:20] VITALS: BP 117/92
[2019-07-04] MEDS: LORazepam 2 MG TABLET PO PRN ×2 (01:23→19:00)
[2019-07-04] MEDS: HALOPERIDOL 5 MG TABLET PO PRN (01:23)
[2019-07-04 06:24] LABS: GLUCOMETER DEV NAME(LOC) BV2S.; GLUCOSE,POINT OF CARE 88 MG/DL (70-110)
[2019-07-04] MEDS: MetFORMIN HCL 500 MG TABLET PO SCH (06:36)
[2019-07-04 08:10] VITALS: BP 101/64
[2019-07-04] MEDS: ASPIRIN 81 MG CHEWABLE TABLET PO SCH (08:16)
[2019-07-04] MEDS: PANTOPRAZOLE SODIUM 40 MG DR TABLET PO SCH (08:17)
[2019-07-04] MEDS: RisperiDONE 2 MG TABLET PO SCH ×2 (08:17→16:34)
[2019-07-04] MEDS: VENLAFAXINE HCL 150 MG ER CAPSULE PO SCH (08:17)
[2019-07-04] MEDS: LISINOPRIL 10 MG TABLET PO SCH (08:17)
[2019-07-04 11:58] LABS: GLUCOMETER DEV NAME(LOC) BV2S.; GLUCOSE,POINT OF CARE 125 MG/DL (70-110)
[2019-07-04 16:03] VITALS: BP 111/87
[2019-07-04] MEDS: INSULIN LISPRO 100 UNITS/ML SQ PRN ×2 (16:36→20:17)
[2019-07-04 17:03] LABS: GLUCOMETER DEV NAME(LOC) BV2S.; GLUCOSE,POINT OF CARE 320 MG/DL (70-110)
[2019-07-04] MEDS: INSULIN GLARGINE,HUM.REC.ANLOG 100 UNITS/ML SQ SCH (20:15)
[2019-07-04 20:29] LABS: GLUCOMETER DEV NAME(LOC) BV2S.; GLUCOSE,POINT OF CARE 273 MG/DL (70-110)
[2019-07-04] MEDS: ZOLPIDEM TARTRATE 10 MG TABLET PO PRN (21:55)
[2019-07-05 02:21] VITALS: BP 116/73
[2019-07-05 06:18] LABS: GLUCOMETER DEV NAME(LOC) BV2S.; GLUCOSE,POINT OF CARE 123 MG/DL (70-110)
[2019-07-05] MEDS: MetFORMIN HCL 500 MG TABLET PO SCH (06:51)
[2019-07-05 08:09] VITALS: BP 135/70
[2019-07-05] MEDS: PANTOPRAZOLE SODIUM 40 MG DR TABLET PO SCH (08:10)
[2019-07-05] MEDS: ASPIRIN 81 MG CHEWABLE TABLET PO SCH (08:10)
[2019-07-05] MEDS: VENLAFAXINE HCL 150 MG ER CAPSULE PO SCH (08:10)
[2019-07-05] MEDS: RisperiDONE 2 MG TABLET PO SCH ×2 (08:10→16:30)
[2019-07-05] MEDS: LISINOPRIL 10 MG TABLET PO SCH (08:10)
[2019-07-05] MEDS: INSULIN LISPRO 100 UNITS/ML SQ PRN ×3 (10:55→20:25)
[2019-07-05 11:47] LABS: GLUCOMETER DEV NAME(LOC) BV2S.; GLUCOSE,POINT OF CARE 158 MG/DL (70-110)
[2019-07-05 16:42] VITALS: BP 125/86
[2019-07-05] MEDS: INSULIN GLARGINE,HUM.REC.ANLOG 100 UNITS/ML SQ SCH (20:25)
[2019-07-05 20:43] LABS: GLUCOMETER DEV NAME(LOC) BV2S.; GLUCOSE,POINT OF CARE 354 MG/DL (70-110)
[2019-07-06 00:55] VITALS: BP 106/64
[2019-07-06 06:21] LABS: GLUCOMETER DEV NAME(LOC) BV2S.; GLUCOSE,POINT OF CARE 82 MG/DL (70-110)
[2019-07-06] MEDS: MetFORMIN HCL 500 MG TABLET PO SCH (06:43)
[2019-07-06 08:01] VITALS: BP 120/67
[2019-07-06] MEDS: RisperiDONE 2 MG TABLET PO SCH ×2 (08:17→16:11)
[2019-07-06] MEDS: VENLAFAXINE HCL 150 MG ER CAPSULE PO SCH (08:17)
[2019-07-06] MEDS: LISINOPRIL 10 MG TABLET PO SCH (08:18)
[2019-07-06] MEDS: PANTOPRAZOLE SODIUM 40 MG DR TABLET PO SCH (08:18)
[2019-07-06] MEDS: ASPIRIN 81 MG CHEWABLE TABLET PO SCH (08:18)
[2019-07-06 11:47] LABS: GLUCOMETER DEV NAME(LOC) BV2S.; GLUCOSE,POINT OF CARE 106 MG/DL (70-110)
[2019-07-06 16:22] VITALS: BP 128/66
[2019-07-06] MEDS: LORazepam 2 MG TABLET PO PRN (16:38)
[2019-07-06] MEDS: INSULIN LISPRO 100 UNITS/ML SQ PRN ×2 (16:50→20:26)
[2019-07-06 17:03] LABS: GLUCOMETER DEV NAME(LOC) BV2S.; GLUCOSE,POINT OF CARE 235 MG/DL (70-110)
[2019-07-06] MEDS: INSULIN GLARGINE,HUM.REC.ANLOG 100 UNITS/ML SQ SCH (20:26)
[2019-07-06 20:27] LABS: GLUCOMETER DEV NAME(LOC) BV2S.; GLUCOSE,POINT OF CARE 217 MG/DL (70-110)
[2019-07-07 06:24] VITALS: BP 119/90
[2019-07-07 06:33] LABS: GLUCOMETER DEV NAME(LOC) BV2S.; GLUCOSE,POINT OF CARE 110 MG/DL (70-110)
[2019-07-07] MEDS: MetFORMIN HCL 500 MG TABLET PO SCH (06:45)
[2019-07-07] MEDS: VENLAFAXINE HCL 150 MG ER CAPSULE PO SCH (08:03)
[2019-07-07] MEDS: LISINOPRIL 10 MG TABLET PO SCH (08:03)
[2019-07-07] MEDS: ASPIRIN 81 MG CHEWABLE TABLET PO SCH (08:03)
[2019-07-07] MEDS: PANTOPRAZOLE SODIUM 40 MG DR TABLET PO SCH (08:03)
[2019-07-07] MEDS: RisperiDONE 2 MG TABLET PO SCH (08:04)
[2019-07-07 08:14] VITALS: BP 147/87
[2019-07-07] MEDS ORDERED: RISP2 PO (11:02)
[2019-07-07] MEDS ORDERED: VENL150C2 PO (11:02)
[2019-07-07 11:47] LABS: GLUCOMETER DEV NAME(LOC) BV2S.; GLUCOSE,POINT OF CARE 117 MG/DL (70-110)
== END 2019-07-07 12:00 | disposition home or self-care (01) | DRG 750 ==
LOC: EMS 18:03 → B3A 06-27 10:25 → B2S 06-30 13:10
PROVIDERS: ADMIT Psychiatry & Neurology Child & Adolescent Psychiatry; ATTEND Psychiatry & Neurology Child & Adolescent Psychiatry
DX: F25.1 Schizoaffective disorder, depressive type (principal); E11.40 Type 2 diabetes mellitus with diabetic neuropathy, unspecified; R45.851 Suicidal ideations; D64.9 Anemia, unspecified; E78.5 Hyperlipidemia, unspecified; E87.6 Hypokalemia; F10.10 Alcohol abuse, uncomplicated; F15.10 Other stimulant abuse, uncomplicated; I10 Essential (primary) hypertension; K21.9 Gastro-esophageal reflux disease without esophagitis; Z79.899 Other long term (current) drug therapy; Z87.891 Personal history of nicotine dependence; Z91.14 Patient's other noncompliance with medication regimen; Z91.5 Personal history of self-harm
CPT/HCPCS: 84132; 87081; G0480; J1815; J7030; Q0162

== ENCOUNTER 2019-12-30 13:48 | Inpatient (IN) | payer MEDICAID ==
[~2019-12-30] VITALS: Ht 177.8 cm; Wt 95.0 kg
[~2019-12-30 13:48] MED LIST changes: +PANT-31 PO; -PANT40TA25 PO; -RISP2 PO; +RISP2TAB23 PO
[2019-12-30 15:31] LABS: BASOPHILS % (AUTO) 0.8 % (0.0-2.0); EOSINOPHILS % (AUTO) 0.1 % (1.0-6.0); HEMATOCRIT 44.7 % (41-53); HEMOGLOBIN 14.6 g/dL (13.5-17.5); LYMPHOCYTES # (AUTO) 3.2 K/uL (1.0-4.8); LYMPHOCYTES % (AUTO) 24.6 % (22.0-44.0); MEAN CORPUSCULAR HEMOGLOBIN 24.7 pg (26.0-34.0); MEAN CORPUSCULAR HGB CONC 32.6 G/dL (31.0-37.0); MEAN CORPUSCULAR VOLUME 76 fL (80-100); MONOCYTES # (AUTO) 1.1 K/uL (0.1-1.0); MONOCYTES % (AUTO) 8.2 % (2.0-9.0); NEUTROPHILS # (AUTO) 8.7 K/uL (1.8-7.7); NEUTROPHILS % (AUTO) 66.3 % (40.0-70.0); RED CELL DISTRIBUTION WIDTH 21.2 % (11.5-14.5)
[2019-12-30 15:37] LABS: PLATELET COUNT (AUTO) 791 K/uL (150-450)
[2019-12-30 15:38] LABS: ANION GAP 20 mmol/L (8-16); CALCIUM, TOTAL 10.4 mg/dL (8.8-10.5); CARBON DIOXIDE 20 mmol/L (22-29); CHLORIDE 100 mmol/L (98-107); CREATININE 1.28 mg/dL (0.60-1.30); GLOMERULAR FILTR. RATE CALC > 60 mL/min (>60); GLUCOSE,RANDOM 129 mg/dL (70-110); POTASSIUM 4.3 mmol/L (3.5-5.1); SODIUM SERUM 140 mmol/L (136-145); UREA NITROGEN, BLOOD 29 mg/dL (7-18)
[2019-12-30 15:50] LABS: ALANINE AMINOTRANSFERASE 32 U/L (12-78); ALBUMIN 4.7 g/dL (3.4-5.0); ALKALINE PHOSPHATASE 169 U/L (46-116); ASPARTATE AMINOTRANSFERASE 31 U/L (15-37); BILIRUBIN,TOTAL 0.5 mg/dL (0.1-1.0); TOTAL PROTEIN, SERUM 10.4 g/dL (6.4-8.2)
[2019-12-30 15:55] LABS: GLUCOSE,POINT OF CARE 115 MG/DL (70-110)
[2019-12-30 18:06] LABS: PLATELET MORPHOLOGY COMMENT LARGE PLTS PRESENT
[2019-12-30] MEDS ORDERED: ZOLPIDEM TARTRATE 10 MG TABLET PO PRN (18:45)
[2019-12-30] MEDS ORDERED: LORazepam 2 MG/ML VIAL IM ONE (21:15)
[2019-12-30] MEDS ORDERED: HALOPERIDOL LACTATE 5 MG/ML VIAL IM ONE (21:15)
[2019-12-30] MEDS ORDERED: DiphenhydrAMINE HCL 50 MG/ML VIAL IM ONE (21:15)
[2019-12-31] MEDS ORDERED: ALBUTEROL SULFATE HFA 90 MCG/PUFF 8 GM INHALER IH PRN (10:30)
[2019-12-31] MEDS ORDERED: PETROLATUM,WHITE 28 GM JELLY TP PRN (10:30)
[2019-12-31] MEDS ORDERED: IBUPROFEN 400 MG TABLET PO PRN (10:30)
[2019-12-31] MEDS ORDERED: LOPERAMIDE HCL 2 MG CAPSULE PO PRN (10:30)
[2019-12-31] MEDS ORDERED: ACETAMINOPHEN 325 MG TABLET PO PRN (10:30)
[2019-12-31] MEDS ORDERED: DEXTROSE 50%-WATER 25 GM/50 ML SYRINGE IVP PRN (10:30)
[2019-12-31] MEDS ORDERED: GuaiFENesin/D-METHORPHAN [SUGAR-FREE] 200-20MG/10 ML SYRUP UDCUP PO PRN (10:30)
[2019-12-31] MEDS ORDERED: CloNIDine HCL 0.1 MG TABLET PO PRN (10:30)
[2019-12-31] MEDS ORDERED: MAG HYDROX/AL HYDROX/SIMETH ES 30 ML SUSPENSION UDCUP PO PRN (10:30)
[2019-12-31] MEDS ORDERED: NICOTINE 14 MG/24 HOUR PATCH TD PRN (10:30)
[2019-12-31] MEDS ORDERED: DOCUSATE SODIUM 100 MG CAPSULE PO PRN (10:30)
[2019-12-31] MEDS ORDERED: MAGNESIUM HYDROXIDE SUSPENSION 30 ML UDCUP PO PRN (10:30)
[2019-12-31] MEDS ORDERED: ONDANSETRON HCL 4 MG TABLET PO PRN (10:30)
[2019-12-31] MEDS: LORazepam 2 MG TABLET PO PRN (12:00)
[2019-12-31 12:45] LABS: AMPHET/METH SCREEN,URINE POSITIVE (NEGATIVE); BARBITURATE SCREEN, URINE NEGATIVE (NEGATIVE); BENZODIAZEPINES SCREEN,URINE POSITIVE (NEGATIVE); CANNABINOID SCREEN,URINE NEGATIVE (NEGATIVE); COCAINE SCREEN,URINE NEGATIVE (NEGATIVE); METHADONE SCREEN, URINE NEGATIVE (NEGATIVE); OPIATE SCREEN,URINE NEGATIVE (NEGATIVE)
[2019-12-31 12:46] LABS: PHENCYCLIDINE SCREEN,URINE NEGATIVE (NEGATIVE)
[2019-12-31] MEDS: HALOPERIDOL 5 MG TABLET PO PRN (12:55)
[2019-12-31 17:33] VITALS: BP 110/84
[2019-12-31 17:40] LABS: GLUCOMETER DEV NAME(LOC) BV2S.; GLUCOSE,POINT OF CARE 130 MG/DL (70-110)
[2019-12-31] MEDS: INSULIN GLARGINE,HUM.REC.ANLOG 100 UNITS/ML SQ SCH (20:40)
[2019-12-31] MEDS: INSULIN LISPRO 100 UNITS/ML SQ PRN (20:41)
[2019-12-31 21:35] LABS: GLUCOMETER DEV NAME(LOC) BV2S.; GLUCOSE,POINT OF CARE 214 MG/DL (70-110)
[2020-01-01 05:33] VITALS: BP 124/86
[2020-01-01] MEDS: PANTOPRAZOLE SODIUM 40 MG DR TABLET PO SCH (06:26)
[2020-01-01] MEDS: MetFORMIN HCL 500 MG TABLET PO SCH (06:26)
[2020-01-01 06:46] LABS: GLUCOMETER DEV NAME(LOC) BV2S.; GLUCOSE,POINT OF CARE 148 MG/DL (70-110)
[2020-01-01 09:02] VITALS: BP 106/60
[2020-01-01] MEDS: LORazepam 2 MG TABLET PO PRN ×2 (10:58→17:01)
[2020-01-01] MEDS: ASPIRIN 81 MG CHEWABLE TABLET PO SCH (11:01)
[2020-01-01] MEDS: LISINOPRIL 10 MG TABLET PO SCH (11:01)
[2020-01-01] MEDS: INSULIN GLARGINE,HUM.REC.ANLOG 100 UNITS/ML SQ SCH (11:41)
[2020-01-01 11:52] LABS: GLUCOMETER DEV NAME(LOC) BV2S.; GLUCOSE,POINT OF CARE 152 MG/DL (70-110)
[2020-01-01 16:06] VITALS: BP 112/71
[2020-01-01 16:21] LABS: GLUCOMETER DEV NAME(LOC) BV2S.; GLUCOSE,POINT OF CARE 263 MG/DL (70-110)
[2020-01-01] MEDS: INSULIN LISPRO 100 UNITS/ML SQ PRN (17:00)
[2020-01-01 20:13] LABS: GLUCOMETER DEV NAME(LOC) BV2S.; GLUCOSE,POINT OF CARE 103 MG/DL (70-110)
[2020-01-02 01:04] VITALS: BP 101/65
[2020-01-02 05:35] LABS: GLUCOMETER DEV NAME(LOC) BV2S.; GLUCOSE,POINT OF CARE 189 MG/DL (70-110)
[2020-01-02] MEDS: MetFORMIN HCL 500 MG TABLET PO SCH (06:15)
[2020-01-02] MEDS: PANTOPRAZOLE SODIUM 40 MG DR TABLET PO SCH (06:15)
[2020-01-02] MEDS: INSULIN LISPRO 100 UNITS/ML SQ PRN ×4 (06:18→21:05)
[2020-01-02 08:17] VITALS: BP 137/97
[2020-01-02] MEDS: LISINOPRIL 10 MG TABLET PO SCH (08:54)
[2020-01-02] MEDS: RisperiDONE 2 MG TABLET PO SCH ×2 (08:54→16:13)
[2020-01-02] MEDS: ASPIRIN 81 MG CHEWABLE TABLET PO SCH (08:54)
[2020-01-02] MEDS: LORazepam 2 MG TABLET PO PRN ×2 (10:53→16:14)
[2020-01-02 11:23] LABS: GLUCOMETER DEV NAME(LOC) BV2S.; GLUCOSE,POINT OF CARE 153 MG/DL (70-110)
[2020-01-02 16:06] VITALS: BP 103/72
[2020-01-02 16:23] LABS: GLUCOMETER DEV NAME(LOC) BV2S.; GLUCOSE,POINT OF CARE 163 MG/DL (70-110)
[2020-01-02 20:03] LABS: GLUCOMETER DEV NAME(LOC) BV2S.; GLUCOSE,POINT OF CARE 305 MG/DL (70-110)
[2020-01-02] MEDS: INSULIN GLARGINE,HUM.REC.ANLOG 100 UNITS/ML SQ SCH (21:06)
[2020-01-03 00:39] VITALS: BP 103/64
[2020-01-03] MEDS: PANTOPRAZOLE SODIUM 40 MG DR TABLET PO SCH (06:26)
[2020-01-03] MEDS: MetFORMIN HCL 500 MG TABLET PO SCH (06:27)
[2020-01-03 07:00] LABS: GLUCOMETER DEV NAME(LOC) BV2X.; GLUCOSE,POINT OF CARE 93 MG/DL (70-110)
[2020-01-03 08:21] VITALS: BP 122/81
[2020-01-03] MEDS: ASPIRIN 81 MG CHEWABLE TABLET PO SCH (08:46)
[2020-01-03] MEDS: LISINOPRIL 10 MG TABLET PO SCH (08:46)
[2020-01-03] MEDS: RisperiDONE 2 MG TABLET PO SCH ×2 (08:47→16:40)
[2020-01-03] MEDS: INSULIN LISPRO 100 UNITS/ML SQ PRN ×3 (11:28→20:51)
[2020-01-03] MEDS: LORazepam 2 MG TABLET PO PRN ×2 (13:14→17:16)
[2020-01-03 14:36] LABS: GLUCOMETER DEV NAME(LOC) BV2S.; GLUCOSE,POINT OF CARE 159 MG/DL (70-110)
[2020-01-03 16:27] VITALS: BP 106/74
[2020-01-03 16:57] LABS: GLUCOMETER DEV NAME(LOC) BV2S.; GLUCOSE,POINT OF CARE 187 MG/DL (70-110)
[2020-01-03] MEDS: HALOPERIDOL 5 MG TABLET PO PRN (17:16)
[2020-01-03] MEDS: INSULIN GLARGINE,HUM.REC.ANLOG 100 UNITS/ML SQ SCH (20:51)
[2020-01-03 20:56] LABS: GLUCOMETER DEV NAME(LOC) BV2S.; GLUCOSE,POINT OF CARE 337 MG/DL (70-110)
[2020-01-04 00:13] VITALS: BP 115/73
[2020-01-04 06:17] LABS: GLUCOMETER DEV NAME(LOC) BV2S.; GLUCOSE,POINT OF CARE 106 MG/DL (70-110)
[2020-01-04] MEDS: MetFORMIN HCL 500 MG TABLET PO SCH (06:39)
[2020-01-04] MEDS: PANTOPRAZOLE SODIUM 40 MG DR TABLET PO SCH (06:39)
[2020-01-04 08:19] VITALS: BP 106/59
[2020-01-04] MEDS: ASPIRIN 81 MG CHEWABLE TABLET PO SCH (08:58)
[2020-01-04] MEDS: RisperiDONE 2 MG TABLET PO SCH ×2 (08:59→16:02)
[2020-01-04] MEDS: LISINOPRIL 10 MG TABLET PO SCH (08:59)
[2020-01-04 11:02] LABS: GLUCOMETER DEV NAME(LOC) BV2S.; GLUCOSE,POINT OF CARE 248 MG/DL (70-110)
[2020-01-04] MEDS: INSULIN LISPRO 100 UNITS/ML SQ PRN ×4 (11:23→21:00)
[2020-01-04] MEDS: LORazepam 2 MG TABLET PO PRN (12:34)
[2020-01-04 16:10] VITALS: BP 110/75
[2020-01-04 16:20] LABS: GLUCOMETER DEV NAME(LOC) BV2S.; GLUCOSE,POINT OF CARE 182 MG/DL (70-110)
[2020-01-04 19:59] LABS: GLUCOMETER DEV NAME(LOC) BV2S.; GLUCOSE,POINT OF CARE 266 MG/DL (70-110)
[2020-01-04] MEDS: INSULIN GLARGINE,HUM.REC.ANLOG 100 UNITS/ML SQ SCH (21:00)
[2020-01-05 01:02] VITALS: BP 109/74
[2020-01-05] MEDS: PANTOPRAZOLE SODIUM 40 MG DR TABLET PO SCH (06:25)
[2020-01-05] MEDS: MetFORMIN HCL 500 MG TABLET PO SCH (06:25)
[2020-01-05] MEDS: INSULIN LISPRO 100 UNITS/ML SQ PRN ×4 (06:28→20:45)
[2020-01-05 06:31] LABS: GLUCOMETER DEV NAME(LOC) BV2S.; GLUCOSE,POINT OF CARE 147 MG/DL (70-110)
[2020-01-05 07:56] LABS: BASOPHILS % (AUTO) 0.8 % (0.0-2.0); EOSINOPHILS % (AUTO) 0.8 % (1.0-6.0); HEMATOCRIT 37.7 % (41-53); LYMPHOCYTES # (AUTO) 2.2 K/uL (1.0-4.8); LYMPHOCYTES % (AUTO) 32.7 % (22.0-44.0); MEAN CORPUSCULAR HEMOGLOBIN 24.2 pg (26.0-34.0); MEAN CORPUSCULAR HGB CONC 31.9 G/dL (31.0-37.0); MEAN CORPUSCULAR VOLUME 76 fL (80-100); MONOCYTES # (AUTO) 0.4 K/uL (0.1-1.0); MONOCYTES % (AUTO) 6.4 % (2.0-9.0); NEUTROPHILS % (AUTO) 59.3 % (40.0-70.0); PLATELET COUNT (AUTO) 544 K/uL (150-450); RED BLOOD CELL COUNT(AUTO) 4.97 MIL/uL (4.50-5.90); RED CELL DISTRIBUTION WIDTH 20.3 % (11.5-14.5)
[2020-01-05 08:12] LABS: FREE T4 (FREE THYROXINE) 1.06 ng/dL (0.76-1.46); THYROID STIMULATING HORMONE 1.07 uIU/mL (0.36-3.74)
[2020-01-05 08:14] VITALS: BP 126/86
[2020-01-05] MEDS: LISINOPRIL 10 MG TABLET PO SCH (08:18)
[2020-01-05] MEDS: ASPIRIN 81 MG CHEWABLE TABLET PO SCH (08:18)
[2020-01-05] MEDS: RisperiDONE 2 MG TABLET PO SCH ×2 (08:18→16:12)
[2020-01-05 11:01] LABS: GLUCOMETER DEV NAME(LOC) BV2S.; GLUCOSE,POINT OF CARE 189 MG/DL (70-110)
[2020-01-05 16:19] VITALS: BP 121/79
[2020-01-05 16:21] LABS: GLUCOMETER DEV NAME(LOC) BV2S.; GLUCOSE,POINT OF CARE 247 MG/DL (70-110)
[2020-01-05] MEDS: INSULIN GLARGINE,HUM.REC.ANLOG 100 UNITS/ML SQ SCH (20:40)
[2020-01-05 20:50] LABS: GLUCOMETER DEV NAME(LOC) BV2S.; GLUCOSE,POINT OF CARE 158 MG/DL (70-110)
[2020-01-05] MEDS ORDERED: GLUCAGON,HUMAN RECOMBINANT 1 MG VIAL IM PRN (21:15)
[2020-01-06 06:00] VITALS: BP 126/85
[2020-01-06] MEDS: PANTOPRAZOLE SODIUM 40 MG DR TABLET PO SCH (06:17)
[2020-01-06] MEDS: MetFORMIN HCL 500 MG TABLET PO SCH (06:17)
[2020-01-06 06:26] LABS: GLUCOMETER DEV NAME(LOC) BV2S.; GLUCOSE,POINT OF CARE 103 MG/DL (70-110)
[2020-01-06] MEDS: LISINOPRIL 10 MG TABLET PO SCH (08:19)
[2020-01-06] MEDS: ASPIRIN 81 MG CHEWABLE TABLET PO SCH (08:19)
[2020-01-06] MEDS: LORazepam 2 MG TABLET PO PRN ×2 (08:19→20:06)
[2020-01-06] MEDS: RisperiDONE 2 MG TABLET PO SCH ×2 (08:19→16:31)
[2020-01-06 09:11] VITALS: BP 106/69
[2020-01-06] MEDS: INSULIN LISPRO 100 UNITS/ML SQ PRN ×3 (10:55→20:12)
[2020-01-06 11:10] LABS: GLUCOMETER DEV NAME(LOC) BV2S.; GLUCOSE,POINT OF CARE 214 MG/DL (70-110)
[2020-01-06 16:03] VITALS: BP 115/78
[2020-01-06 16:40] LABS: GLUCOMETER DEV NAME(LOC) BV2S.; GLUCOSE,POINT OF CARE 240 MG/DL (70-110)
[2020-01-06] MEDS: HALOPERIDOL 5 MG TABLET PO PRN (20:07)
[2020-01-06] MEDS: INSULIN GLARGINE,HUM.REC.ANLOG 100 UNITS/ML SQ SCH (20:12)
[2020-01-06 20:16] LABS: GLUCOMETER DEV NAME(LOC) BV2S.; GLUCOSE,POINT OF CARE 198 MG/DL (70-110)
[2020-01-07 01:53] VITALS: BP 119/74
[2020-01-07] MEDS: PANTOPRAZOLE SODIUM 40 MG DR TABLET PO SCH (06:40)
[2020-01-07] MEDS: MetFORMIN HCL 500 MG TABLET PO SCH (06:41)
[2020-01-07 06:53] LABS: GLUCOMETER DEV NAME(LOC) BV2S.; GLUCOSE,POINT OF CARE 122 MG/DL (70-110)
[2020-01-07 08:20] VITALS: BP 110/63
[2020-01-07] MEDS: RisperiDONE 2 MG TABLET PO SCH ×2 (08:26→16:31)
[2020-01-07] MEDS: LISINOPRIL 10 MG TABLET PO SCH (08:26)
[2020-01-07] MEDS: LORazepam 2 MG TABLET PO PRN ×2 (08:26→17:25)
[2020-01-07] MEDS: ASPIRIN 81 MG CHEWABLE TABLET PO SCH (08:26)
[2020-01-07] MEDS: INSULIN LISPRO 100 UNITS/ML SQ PRN ×3 (10:55→20:21)
[2020-01-07 11:59] LABS: GLUCOMETER DEV NAME(LOC) BV2S.; GLUCOSE,POINT OF CARE 188 MG/DL (70-110)
[2020-01-07 16:04] VITALS: BP 101/68
[2020-01-07 16:37] LABS: GLUCOMETER DEV NAME(LOC) BV2S.; GLUCOSE,POINT OF CARE 165 MG/DL (70-110)
[2020-01-07 17:25] VITALS: BP 114/72
[2020-01-07] MEDS: INSULIN GLARGINE,HUM.REC.ANLOG 100 UNITS/ML SQ SCH (20:20)
[2020-01-07 20:38] LABS: GLUCOMETER DEV NAME(LOC) BV2S.; GLUCOSE,POINT OF CARE 261 MG/DL (70-110)
[2020-01-08 00:46] VITALS: BP 107/74
[2020-01-08 06:26] LABS: GLUCOMETER DEV NAME(LOC) BV2S.; GLUCOSE,POINT OF CARE 121 MG/DL (70-110)
[2020-01-08] MEDS: PANTOPRAZOLE SODIUM 40 MG DR TABLET PO SCH (06:42)
[2020-01-08] MEDS: MetFORMIN HCL 500 MG TABLET PO SCH (06:42)
[2020-01-08 08:19] VITALS: BP 128/73
[2020-01-08] MEDS: LISINOPRIL 10 MG TABLET PO SCH (08:22)
[2020-01-08] MEDS: RisperiDONE 2 MG TABLET PO SCH (08:22)
[2020-01-08] MEDS: ASPIRIN 81 MG CHEWABLE TABLET PO SCH (08:22)
== END 2020-01-08 14:03 | disposition home or self-care (01) | DRG 750 ==
LOC: EMS 13:50 → B2S 12-31 17:03
PROVIDERS: ADMIT Psychiatry & Neurology Psychiatry; ATTEND Psychiatry & Neurology Psychiatry
DX: F20.0 Paranoid schizophrenia (principal); D72.829 Elevated white blood cell count, unspecified; E11.40 Type 2 diabetes mellitus with diabetic neuropathy, unspecified; E78.5 Hyperlipidemia, unspecified; F10.10 Alcohol abuse, uncomplicated; F15.90 Other stimulant use, unspecified, uncomplicated; F17.210 Nicotine dependence, cigarettes, uncomplicated; I10 Essential (primary) hypertension; K21.9 Gastro-esophageal reflux disease without esophagitis; R45.851 Suicidal ideations; F32.9 Major depressive disorder, single episode, unspecified; F41.9 Anxiety disorder, unspecified; G62.9 Polyneuropathy, unspecified; G47.00 Insomnia, unspecified; R00.0 Tachycardia, unspecified; Z59.0 Homelessness; Z79.4 Long term (current) use of insulin; Z79.899 Other long term (current) drug therapy; Z79.84 Long term (current) use of oral hypoglycemic drugs; Z79.82 Long term (current) use of aspirin; Z88.8 Allergy status to other drugs, medicaments and biological substances; Z03.818 Encounter for observation for suspected exposure to other biological agents ruled out
CPT/HCPCS: 84439; 84443; 87426; 93005; G0480; J1200; J1630; J1815; J2060